=== PATIENT | female | born 1955 | race Caucasian/White ===

== ENCOUNTER 2019-05-27 13:48 | Inpatient (IN) ==
[2019-05-27] MEDS ORDERED: NITROGLYCERIN SL 0.4 MG/TAB TAB ONE (13:57)
[2019-05-27] MEDS ORDERED: ASPIRIN CHEW 324 MG ONE (13:57)
[2019-05-27] MEDS ORDERED: NITROGLYCERIN SL 0.4 MG/TAB TAB SL PRN (13:58)
[2019-05-27] MEDS ORDERED: MoRPHine SULFATE 4 MG/ML 1 ML CARP\\VIAL IV STA (13:58)
[2019-05-27] MEDS ORDERED: ASPIRIN CHEW 324 MG PO STA (13:58)
[2019-05-27] MEDS ORDERED: TICAGRELOR 90 MG TAB PO ONE ×2 (13:59→16:17)
[2019-05-27] MEDS ORDERED: MIDAZOLAM HCL 1 MG/ML 2ML VIAL ONE ×2 (13:59→15:14)
[2019-05-27] MEDS ORDERED: fentaNYL citrate 100 MCG/2 ML VIAL ONE (13:59)
[2019-05-27] MEDS ORDERED: HEPARIN (PORCINE) 1000 UNIT/ML 10 ML (CATH LAB USE ONLY) ONE ×2 (13:59→14:50)
[2019-05-27] MEDS ORDERED: NiCARDipine HCL INJ 2.5 MG/ML 10 ML AMP ONE (13:59)
[2019-05-27] MEDS ORDERED: NITROGLYCERIN/D5W 100MCG/ML 20ML SYR ONE (13:59)
--- NOTE | 2019-05-27 14:10 | XRay Report ---
XR chest 1V portable CLINICAL HISTORY: Chest pain dyspnea COMPARISON STUDY: 01/24/2018 FINDINGS: Central catheter in superior vena cava. Improving diffuse pulmonary nodularity. Interval development of subsegmental atelectasis versus infiltrate right base. Diaphragms are smooth. IMPRESSION: 1. Interval development of subsegmental atelectasis versus focal infiltrative change medial right bas e. 2. Improving pulmonary nodularity. The above report was generated using voice recognition software. It may contain grammatical, syntax or spelling errors. Electronically signed by: Juan Jose Ramirez M.D. 05/27/2019 2:09 PM
[2019-05-27 14:16] LABS: iSTAT Creatinine 1.6 mg/dl (0.6-1.3); iSTAT Hemoglobin 9.5 g/dl (12.0-16.0); iSTAT Ionized Calcium 1.12 mmol/l (1.12-1.32); iSTAT Potassium 3.3 mEq/L (3.3-5.0)
[2019-05-27 14:18] LABS: Basophils # (auto) 0.01 K/uL (0-0.2); Basophils % (auto) 0.2 %; Hematocrit (blood only) 28.5 % (37-47); Hemoglobin 9.5 g/dL (12.0-16.0); Immature Granulocytes # (auto) 0.04 K/uL (0.00-0.02); Immature Granulocytes % (auto) 0.8 %; Lymphocytes # (auto) 2.24 K/uL (1.2-3.4); Lymphocytes % (auto) 46.6 %; Mean Corpuscular Hemoglobin 29.9 pg (25-34); Mean Corpuscular Hgb Conc 33.3 g/dL (32-36); Mean Corpuscular Volume 89.6 fL (80-100); Mean Platelet Volume 8.6 fL (7.4-10.4); Monocytes # (auto) 0.65 K/uL (0.11-0.59); Monocytes % (auto) 13.5 %; Neutrophils # (auto) 1.87 K/uL (1.4-6.5); Neutrophils % (auto) 38.9 %; Platelet Count 336 K/uL (130-400); RDW Coefficient of Variation 16.5 % (11.5-14.5); RDW Standard Deviation 52.8 fL (36.4-46.3); Red Blood Count 3.18 M/uL (4.2-5.4); White Blood Count 4.81 K/uL (4.8-10.8)
[2019-05-27 14:31] LABS: Albumin Level 3.5 gm/dl (3.4-5.0); BUN Creatinine Ratio 7.2 (10-20); Calcium 9.4 mg/dl (8.5-10.1); Creatinine Clr Calc Pharmacy 32.9 ml/min; Est GFR (African American) 38.5; Est GFR (Non-African American) 33.2; Potassium 3.2 mmol/L (3.5-5.1)
[2019-05-27 14:38] LABS: Partial Thromboplastin Ratio 0.9; Partial Thromboplastin Time 24.5 Seconds (21.0-31.0); Prothrombin Time 10.6 Seconds (9.0-12.0)
[2019-05-27] MEDS ORDERED: AMIODARONE HCL INJ 50 MG/ML 3 ML VIAL (CATH LAB USE ONLY) ONE (14:38)
[2019-05-27] MEDS ORDERED: NOREPINEPHRINE BITARTRATE 1 MG/ML 4 ML VIAL (CATH LAB USE ONLY) ONE (14:39)
[2019-05-27] MEDS ORDERED: AMIODARONE 150MG / 100ML D5W (CATH LAB USE ONLY) ONE ×2 (14:40)
[2019-05-27 14:44] LABS: Albumin Globulin Ratio 0.9 (0.9-2); Bilirubin,Total 0.4 mg/dl (0.2-1); Creatine Kinase MB 2.1 ng/ml (0.5-3.6); Thyroid Stimulating Hormone 2.75 uIu/ml (0.300-4.500); Total Protein 7.5 gm/dl (6.4-8.2); Troponin I 0.369 ng/ml (0-0.045)
[2019-05-27] MEDS ORDERED: ONDANSETRON INJ 2 MG/ML 2 ML VIAL ONE (15:11)
[2019-05-27] MEDS ORDERED: ACETAMINOPHEN 325 MG TAB PO PRN (16:40)
[2019-05-27] MEDS ORDERED: ONDANSETRON INJ 2 MG/ML 2 ML VIAL IV PRN (16:40)
[2019-05-27] MEDS ORDERED: ICU PROTOCOL FOR HYPERGLYCEMIA PRN (16:44)
[2019-05-27] MEDS: SODIUM CHLORIDE 0.9% 1000ML 1,000 ML IV SCH ×2 (16:45→17:51)
[2019-05-27] MEDS ORDERED: EPTIFIBATIDE BOLUS/DRIP IV STA (16:52)
--- NOTE | 2019-05-27 16:57 | Pre Anesthesia Assessment ---
Date of Service May 27, 2019 Pre Sedation Assessment Vital Signs Temp Pulse Resp BP Pulse Ox 05/27/19 14:09 97.9 F 05/27/19 14:07 106 H 20 132/95 99 05/27/19 14:00 100 H 22 154/115 H 100 05/27/19 13:58 100 Cardiovascular RRR, no murmur, no edema Respiratory normal respiratory effort, lungs clear to auscultation Pre-Sedation Airway Assessment Smoking Status: Never smoker Hx Sleep Apnea: No Hx Difficult Intubation: No Short, Thick Neck: No Thyromental Distance: > or= 3.5 Finger Breadths Oral Cavity: + WNL Mallampati Class: III Procedure Planning Contraindications for Sedation: none Current Medications Reviewed: Yes Notes The planned sedation has been discussed with the patient. Informed Consent was obtained. I have identified the patient, determined the appropriateness of sedation and have assessed the patient immediately prior to the procedure. All medicine(s) and interventions are by my order.
--- NOTE | 2019-05-27 16:59 | Post Anesthesia Assessment ---
Date of Service May 27, 2019 Post Sedation Assessment Vital Signs Temp Pulse Resp BP Pulse Ox 05/27/19 14:09 97.9 F 05/27/19 14:07 106 H 20 132/95 99 05/27/19 14:00 100 H 22 154/115 H 100 05/27/19 13:58 100 Recovery Score Activity: Moves 4 extremities Respiration: Deep Breath/Cough Circulation: +/-20% PreAnes Value Consciousness: Fully Awake Discharge Sedation Level of Care: Fast Track Phase II Post Sedation Plan On clinical assessment, the patient appears to have tolerated the sedation without complications. Patient is recovering as anticipated. Patient will continue to be monitored by nursing and may be discharged when sedation discharge criteria are met per below protocol. Upon Completions of procedure and additional 15 minutes continue every 5 minute vital signs and the P.A.R. score; then discharge to a Phase I or Fast Track to Phase II per the following guidelines: * Discharge Patient to appropriate Phase II area if PAR is 8 or greater or return to pre- procedure baseline. The post - procedure orders will be as directed. * If PAR score is less than 8 or not return to pre-procedure baseline then patient will follow Phase I monitoring till PAR is reached for Phase II. The Phase I may be done in procedure room or may call to secure a Phase I area. * If naloxone or flumazenil are used for reversal, hold in Phase I for continued monitoring from when last reversal dose was given for a minimum of 60 minutes or longer pending the nurse and/or physician discretion of patient condition before discharge to Phase II. Please call the Sedation Physician to re-evaluate and complete post-note for discharge to Phase II area. Do NOT discharge from procedure sedation or Phase 1 until post- sedation evaluation note is complete by procedure /sedation MD Sedation Discharge Instructions to be given to the patient at discharge to home.
--- NOTE | 2019-05-27 17:06 | Cardiology Consultation ---
Date of Consultation May 27, 2019 Assessment & Plan (1) STEMI (ST elevation myocardial infarction): Presentation consistent with anterior STEMI and recommend proceeding with emergent cardiac catheterization and likely primary PCI. Discussed risks, benefits, alternatives of procedure with patient and they are willing to proceed. Further recommendations pending findings of coronary angiography. History of Present Illness Attending Physician: Soco Thakkar MD History of Present Illness 63-year-old woman with non-small cell lung cancer being treated with c hemotherapy here with acute chest pain and ECG concerning for acute [place]. Patient seen emergently in the ED after heart alert activated upon arrival. No prior cardiac history. Cardiac risk factors include dyslipidemia, hypertension. Other medical issues include asthma, GERD, renal insufficiency. Tissue diagnosis of NSCLC back in December 2018. Chest pain began approximately 2 hours prior to arrival while at rest. Describes substernal/left-sided pain with associated nausea, and left arm numbness. Denies similar symptoms in the past. Chest pain at its worst 9 out of 10, 3 out of 10 at time of interview after nitro. Hemodynamically stable. EKG showed anterior ST elevations. Allergies Allergy/AdvReac Type Severity Reaction Status Date / Time barley Allergy Intermediate INDIGESTION/GI Verified 12/28/18 11:43 SYMPTOMS chocolate flavor Allergy Intermediate HEADACHES Verified 12/28/18 11:43 WITH LARGE QUANTITIES horse dander Allergy Intermediate ITCHING Verified 12/28/18 11:43 mold Allergy Intermediate ITCHING/DIFFICULT Verified 12/28/18 11:43 BREATHING Penicillins Allergy Intermediate Hives Verified 12/28/18 11:43 cheese AdvReac Intermediate CONSTIPATION/GI Verified 12/28/18 11:43 SYMPTOMS Home Medications Home Medications Medication Instructions Recorded Confirmed Type Adults Multivitamin 1 tab PO WK 12/27/18 05/27/19 History Odorless Garlic 1,250 mg PO BID 12/27/18 05/27/19 History Zyrtec 10 mg PO QAM 12/27/18 05/27/19 History albuterol sulfate [ProAir HFA] 2 puff INHALATION Q6H PRN 12/27/18 05/27/19 History coQ10 (ubiquinol) 100 mg PO BID 12/27/18 05/27/19 History fluticasone propionate [Flonase 1 spray INTRANASAL DAILY 12/27/18 05/27/19 History Allergy Relief] mupirocin 1 unit TOPICAL BID PRN 12/27/18 05/27/19 History omega 1-yvw-npj-fish oil [Fish Oil] 1 cap PO WK 12/27/18 05/27/19 History ranitidine HCl 150 mg PO BID PRN 12/27/18 05/27/19 History acetaminophen [Tylenol] 325 mg PO QID PRN 12/28/18 05/27/19 History amlodipine 2.5 mg PO DAILY 05/27/19 05/27/19 History folic acid 1 mg PO DAILY 05/27/19 05/27/19 History ondansetron HCl 8 mg PO Q8H PRN 05/27/19 05/27/19 History Patient History Medical History Allergic rhinitis Asthma HAS NOT USED INHALER SINCE PRESCRIBED Chronic cough Dyslipidemia, goal LDL below 130 GERD (gastroesophageal reflux disease) Herpes simplex viral infection Mediastinal adenopathy Migraine HX OF 2010 Pulmonary nodules Right lower lobe lung mass TMJ (temporomandibular joint disorder) Surgical History History of 1973 History of tooth extraction Family History Mother Family history of diabetes mellitus Social History Preferred Language: Pry[place] Communication Ability: Effective Pipe Organ Mechanic Required: No Beliefs That Will Affect Care: None Current Living Situation: Spouse Feels Safe at Home: Yes Smoking Status: Never smoker Second Hand Exposure: No ; Hx Alcohol Use: Yes Alcohol type: hard liquor Hx Substance Use: No Review of Systems Review of Systems: Other (Not obtained in the setting of emergent situation) Physical Exam Physical Exam: General: Uncomfortable, tearful, chronically ill-appearing HEENT: Sclerae anicteric, mucous membranes moist Lungs: Clear to auscultation with decreased breath sounds at bases Cardiac: Tachycardic, regular Abdomen: Soft, nontender, nondistended, positive bowel sounds. Extremities: Warm, well perfused, no edema. 2+ radial pulses Skin: No rashes or lesions. Neuro: Nonfocal Psych: Alert orient x3, normal affect and mood Results & Data Vital Signs (Past 12 Hours) Vital Signs Temp Pulse Resp BP Pulse Ox 05/27/19 14:09 97.9 F 05/27/19 14:07 106 H 20 132/95 99 05/27/19 14:00 100 H 22 154/115 H 100 05/27/19 13:58 100 PG Care Time/CCT Total # of Minutes Spent Total Time Spent with Patient: Total time spent is greater than 50% in coordination of care (as documented) at patient's floor/unit and/or counseling patient:
[2019-05-27] MEDS ORDERED: EPTIFIBATIDE IV ONE (17:15)
--- NOTE | 2019-05-27 17:23 | Critical Care Consultation ---
Date of Consultation May 27, 2019 Assessment & Plan (1) Non-small cell cancer of right lung: (2) STEMI (ST elevation myocardial infarction): Reason Critically Ill: 63-year-old female with history non-small cell carcinoma, presented with STEMI requiring PCI x3 to the [facility] - [facility] ICU: Negative Cardiac - STEMIpresentation presented with chest pain and found to have ST elevation in anterior leads -Initial troponin elevated 0.39, will follow for downtrend -Taken to [facility] found to have 100% occlusion of the LAD, received PCI x3 -Also had multivessel disease with PDA, RCA, circumflex; see cardiac catheterization note -Had prolonged balloon angioplasty of latemid downstream LAD dissection, will continue Brilinta for 18 hours per cardiology -Continuous monitoring on telemetry -Follow-up echo -Monitor EKGs -Lipitor, Brilinta, ASA Respiratory - Non-small cell carcinomareceives chemo every other Thursday, last infusion 05/20 -CBC within normal limits GI - PPI Heart healthy diet RENAL/LYTES - CKD stage IIIno known baseline creatinine, presented elevated at 1.6, JESSICA possibility -We will continue to monitor with routine BMPs, trend -Continue IV fluids -Avoid nephrotoxins - Strict I's and O's ENDO - No history diabetes or thyroid disease ICU hyperglycemic protocol HEME - Anemianormocytic, normochromic; likely related to cancer/chemo -H&H within acceptable range, will continue to trend and transfuse if necessary Neutrophil count within normal limits ID - No indication for infectious process at this time LINES/IV ACCESS - Peripheral IVs DVT PROPHYLAXIS - SCDs, holding anticoagulation as patient is on Integralin infusion Thank you for allowing us to participate in the care of this patient. Please refer to my attending physician's documentation for any further recommendations. (3) GERD (gastroesophageal reflux disease): (4) Admitted to intensive care unit: Supervising Physician Co-Signing Physician Notes I have personally evaluated and examined this patient. I agree with assessment and plan of Joanie RAMSEY. Discussed the patient with Dr. Malin of cardiology, there is a known distal dissection. He also had a dissection proximal which required stenting, he was unable to place a stent into the distal dissection at this time we are continuing Integrilin, if she were to have a complication of continued or extended myocardial ischemia a repeat catheterization would strongly be considered. Initially in the ICU she was rather tachycardic and hypertensive to decrease her myocardial oxygen consumption we cautiously gave her intravenous beta-blockers. I recognize the risk of if there is extended cardiac ischemia this could place the patient at increased risk of complications however I feel we need to better control her hemodynamics at this time Patient is extremely anxious and has been improved with Ativan. I have personally spent 35 minutes of critical care time in the direct management of this patient. This is a life/limb threatening event. This includes time spent evaluating patient, direct bedside care, chart review, placing orders, interpretation of diagnostic studies, discussion with consultants, patient, and/or family members regarding treatment decisions, as well as other required patient management activities. This time is exclusive of all separately billable procedures, and teaching time and separate from and in addition to any other critical care service time. History of Present Illness Attending Physician: Soco Thakkar MD History of Present Illness Patient 63-year-old female with recent diagnosis of non-small cell carcinoma in December 2018, currently being treated with chemo biweekly with last transfusion on 05/20. She presented to the emergency department with complaints of chest pain with radiation to the left arm that is been ongoing since noon. She also has associated nausea and vomiting state at home. She was given nitro in the ED with some relief. Troponin was elevated and EKG showed ST elevation in the anterior leads. Heart code was initiated and patient was taken to [facility] and received PCI x3 to the LAD. She was also found to have multivessel disease. Was transferred to ICU post catheterization. Remains on Integrilin drip at this time. Currently patient denies chest pain, headache or syncope, shortness of breath, palpitations, nausea or vomiting, abdominal pain. Allergies Allergy/AdvReac Type Severity Reaction Status Date / Time barley Allergy Intermediate INDIGESTION/GI Verified 12/28/18 11:43 SYMPTOMS chocolate flavor Allergy Intermediate HEADACHES Verified 12/28/18 11:43 WITH LARGE QUANTITIES horse dander Allergy Intermediate ITCHING Verified 12/28/18 11:43 mold Allergy Intermediate ITCHING/DIFFICULT Verified 12/28/18 11:43 BREATHING Penicillins Allergy Intermediate Hives Verified 12/28/18 11:43 cheese AdvReac Intermediate CONSTIPATION/GI Verified 12/28/18 11:43 SYMPTOMS Home Medications Home Medications Medication Instructions Recorded Confirmed Type albuterol sulfate [ProAir HFA] 2 puff INHALATION Q6H PRN 12/27/18 05/27/19 History amlodipine 2.5 mg PO DAILY 05/27/19 05/27/19 History ondansetron HCl 8 mg PO Q8H PRN 05/27/19 05/27/19 History prochlorperazine maleate 5 mg PO Q6H PRN 05/27/19 05/27/19 History Patient History Medical History Non-small cell cancer of right lung (Chronic) Dyslipidemia, goal LDL below 130 (Chronic) Chronic cough (Chronic) Mediastinal adenopathy (Chronic) Asthma (Chronic) HAS NOT USED INHALER SINCE PRESCRIBED GERD (gastroesophageal reflux disease) (Chronic) Migraine (Chronic) HX OF 2009 Allergic rhinitis (Resolved) Herpes simplex viral infection (Resolved) Pulmonary nodules (Resolved) TMJ (temporomandibular joint disorder) (Resolved) Surgical History History of tooth extraction (Chronic) History of (Chronic) 1973 Family History Mother Family history of diabetes mellitus Heart disease Father Coronary heart disease Social History Preferred Language: Lithuanian Communication Ability: Effective Signals Intelligence Analyst Required: No Beliefs That Will Affect Care: None marital status: Current Living Situation: Spouse Feels Safe at Home: Yes Safety Concerns: Feels Safe At This Time Smoking Status: Never smoker Do You Dip or Chew Tobacco: No ; Second Hand Exposure: No ; Tobacco Cessation Education Requested by Patient: No Hx Alcohol Use: No Hx Substance Use: No Review of Systems Review of Systems: All systems reviewed & are unremarkable except as noted in HPI & below Physical Exam Constitutional: cooperative and comfortable Eyes: PERRL, conjunctivae normal, anicteric sclerae ENMT: external ear and nose normal, oropharynx normal Neck: trachea midline, no thyromegaly Respiratory: normal respiratory effort, lungs clear to auscultation Cardiovascular: RRR, no murmur, no edema Heart Sounds: normal S1 and normal S2 Vessels: no JVD Extremities: normal capillary refill; no edema Gastrointestinal (Abdomen): normal bowel sounds, soft, nontender, no hepatosplenomegaly Musculoskeletal: no cyanosis or clubbing, extremities motor strength 5/5 Skin: no rashes, warm and dry Neurologic: PERRL, EOMI, accommodation nl, no face palsy, no dysarthria Psychiatric: A+Ox3, euthymic affect Results & Data Vital Signs (Past 12 Hours) Vital Signs Temp Pulse Resp BP Pulse Ox 05/27/19 14:09 36.6 C 05/27/19 14:07 106 H 20 132/95 99 05/27/19 14:00 100 H 22 154/115 H 100 05/27/19 13:58 100 Laboratory Results Laboratory Results - last 24 hr 05/27/19 05/27/19 05/27/19 14:01 14:01 14:01 WBC 4.81 RBC 3.18 L Hgb 9.5 L POC Hgb Hct 28.5 L POC Hct MCV 89.6 MCH 29.9 MCHC 33.3 RDW Std Deviation 52.8 H RDW Coeff of Azael 16.5 H Plt Count 336 MPV 8.6 Immature Gran % (Auto) 0.8 Neut % (Auto) 38.9 Lymph % (Auto) 46.6 [place] % (Auto) 13.5 Eos % (Auto) 0.0 Baso % (Auto) 0.2 Immature Gran # (Auto) 0.04 H Neut # (Auto) 1.87 Lymph # (Auto) 2.24 [place] # (Auto) 0.65 H Eos # (Auto) 0.00 Baso # (Auto) 0.01 PT 10.6 INR 1.0 APTT 24.5 PTT Ratio 0.9 POC Sodium Sodium 135 L POC Potassium Potassium 3.2 L POC Chloride Chloride 100 Carbon Dioxide 26 POC Total CO2 Anion Gap 10.0 POC Anion Gap POC BUN BUN 12 Creatinine 1.63 H POC Creatinine Est Cr Clr Drug Dosing 32.9 Est GFR ( Amer) 38.5 Est GFR (Non-Af Amer) 33.2 BUN/Creatinine Ratio 7.2 L Glucose 148 H POC Glucose (other) Calcium 9.4 POC Ioniz Calcium Mo Magnesium 2.0 Total Bilirubin 0.4 AST 20 ALT 19 Alkaline Phosphatase 100 Total Creatine Kinase 56 CK-MB (CK-2) 2.1 CK/CKMB % Calc 3.8 H POC Troponin I Troponin I 0.369 H* Total Protein 7.5 Albumin 3.5 Globulin 4.0 Albumin/Globulin Ratio 0.9 Lipase 171 TSH 2.750 05/27/19 05/27/19 14:01 14:01 WBC RBC Hgb POC Hgb 9.5 L Hct POC Hct 28 L MCV MCH MCHC RDW Std Deviation RDW Coeff of Azael Plt Count MPV Immature Gran % (Auto) Neut % (Auto) Lymph % (Auto) [place] % (Auto) Eos % (Auto) Baso % (Auto) Immature Gran # (Auto) Neut # (Auto) Lymph # (Auto) [place] # (Auto) Eos # (Auto) Baso # (Auto) PT INR APTT PTT Ratio POC Sodium 133 L Sodium POC Potassium 3.3 Potassium POC Chloride 98 L Chloride Carbon Dioxide POC Total CO2 25 Anion Gap POC Anion Gap 15.0 L POC BUN 10 BUN Creatinine POC Creatinine 1.6 H Est Cr Clr Drug Dosing Est GFR ( Amer) Est GFR (Non-Af Amer) BUN/Creatinine Ratio Glucose POC Glucose (other) 149 H Calcium POC Ioniz Calcium Mo 1.12 Magnesium Total Bilirubin AST ALT Alkaline Phosphatase Total Creatine Kinase CK-MB (CK-2) CK/CKMB % Calc POC Troponin I 0.27 H Troponin I Total Protein Albumin Globulin Albumin/Globulin Ratio Lipase TSH Medications Administered Home Medications albuterol sulfate [ProAir HFA] 2 puff INHALATION Q6H PRN 12/27/18 [History Confirmed 05/27/19] amlodipine 2.5 mg PO DAILY 05/27/19 [History Confirmed 05/27/19] ondansetron HCl 8 mg PO Q8H PRN 05/27/19 [History Confirmed 05/27/19] prochlorperazine maleate 5 mg PO Q6H PRN 05/27/19 [History Confirmed 05/27/19] Active Medications Acetaminophen (Tylenol) 650 mg PO Q4H PRN PRN Reason: Mild Pain (scale 1-3) Stop: 06/26/19 16:39 Aspirin (Ecotrin Ectab) 81 mg PO QAM COLLEEN Stop: 06/27/19 08:59 Atorvastatin Calcium (Lipitor) 40 mg PO QAM COLLEEN Stop: 06/27/19 08:59 Eptifibatide (Integrilin Bolus/Drip) 1 ea IV NOW STA Stop: 05/27/19 16:53 Sodium Chloride (Nss 1000ml) 1,000 mls @ 100 mls/hr IV .Q10H COLLEEN Stop: 05/27/19 21:44 Eptifibatide (Integrilin) 75 mg in 100 mls @ 5.512 mls/hr IV .Q18H9M COLLEEN; Protocol Stop: 06/26/19 17:14 Potassium Chloride (K Rohit / Wtr) 20 meq in 100 mls @ 50 mls/hr IV Q2H [facility] Stop: 05/27/19 21:29 Miscellaneous (Icu Protocol For Hyperglycemia) 1 ea N/A PRN PRN; Protocol PRN Reason: Hyperglycemia Protocol Stop: 05/29/19 16:43 Nitroglycerin (Nitrostat) 0.4 mg SL Q5M PRN PRN Reason: Chest Pain Ondansetron HCl (Zofran) 4 mg IV Q6H PRN PRN Reason: Nausea And Vomiting Stop: 06/26/19 16:39 Pantoprazole Sodium (Protonix) 40 mg PO QAM [facility] Stop: 06/27/19 08:59 Ticagrelor (Brilinta) 90 mg PO BID [facility] Stop: 06/27/19 01:59 PG Care Time/CCT Total # of Minutes Spent Total Time Spent with Patient: Total time spent is greater than 50% in coordination of care (as documented) at patient's floor/unit and/or counseling patient:
--- NOTE | 2019-05-27 17:23 | History & Physical Report ---
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 Pt found to have anterior STEMI, troponin elevated 0.319 Proceeded to cardiac cardiac cath lab technologist: Found to have 100% mid LAD occlusion Severe multi vessel non culprit coronary artery disease Heavily calcified RCA with 90% early-mid stenosis and distal 90% stenosis; 90% ostial OM2 PCI Successful: Ostial to mid LAD with 3 overlapping drug-eluting stent. Further had prolonged balloon angioplasty of latemid downstream LAD dissection with minimal residual stenosis" Per Dr. Malin cath report Admit to ICU for close cardiac monitoring Continue Integrilin for 18hrs Loaded with brilinta Continue dual antiplatelet therapy x 1 year Cycle cardiac enzymes until peak Echocardiogram ordered High intensity statin, BB and RAMANA as BP allows Daily labs IVF per radiology services manager please refer to radiology services manager consultation for further assessment and plan (3) Non-small cell cancer of right lung: Currently receiving chemotherapy; last cycle was 1 week ago (4) HTN (hypertension): On amlodipine as outpt Titrate BB and RAMANA as BP allows Per pt she has been having significantly elevated BP for the past week (5) Dyslipidemia, goal LDL below 130: High intensity statin (6) Anemia: H/H 9.2/27.6 as outpt Normocytic, normochromic - likely in setting of chemo/ca Trend H/H (7) CKD (chronic kidney disease), stage III: Baseline cr 1.5 bun/cr 12 and 1.6 today monitor (8) DVT prophylaxis: SCD/TEDS, on Integrilin Disposition: to be determined Follow up: PCP Dr. Alba upon discharge along with appropriate cardiology follow up Patient was seen and examined in collaboration with Dr. Thakkar, please see addendum History of Present Illness Chief Complaint: Chest pain 2 hours prior to presentation. Primary Care Provider: Kae Alba MD This is a 63-year-old female who has significant past medical history of non- small cell CA of right lung, HTN, HLD, CKD-3, GERD, asthma who presents to [facility] ED as heart alert. Of significance patient has recent diagnosis of non-small cell CA of right lung, biopsy 12/2018. Currently receiving chemotherapy, last treatment 1 week ago. 2 hours prior to arrival patient was sitting down eating when she developed severe substernal chest pain radiated to bilateral arms, associated diaphoresis, palpitations, nausea. "I understand CPR, but I couldn't understand what was going on because it was going to both arms." Heart alert was called and patient was found to have acute anterior STEMI in ED. Pt was evaluated by Dr. Malin and taken to cardiac cath lab technologist. Patient was found to have moderate LAD occlusion with calcification which required patient to have 3 total stents placed in LAD. Also noted was a [id number] dissection that was not amenable to PCI. Patient was chest pain-free postprocedure and loaded with Brilinta. She was transferred to ICU and we have been consulted for medical management. Currently she denies any chest pain, lightheadedness, dizziness, fever, chills, sweats, shortness of breath, nausea, vomiting, abdominal pain. She overall feels very anxious about entire event and becomes very tearful when talking about it. Prior to arrival today she has been having a good appetite, trying to maintain 2000cal/day diet along with maintaining good hydration. States that for the past week she has been having significantly elevated blood pressure during chemo and for the past week. Has almost been forgetting to take her amlodipine. Allergies Allergy/AdvReac Type Severity Reaction Status Date / Time barley Allergy Intermediate INDIGESTION/GI Verified 12/28/18 11:43 SYMPTOMS chocolate flavor Allergy Intermediate HEADACHES Verified 12/28/18 11:43 WITH LARGE QUANTITIES horse dander Allergy Intermediate ITCHING Verified 12/28/18 11:43 mold Allergy Intermediate ITCHING/DIFFICULT Verified 12/28/18 11:43 BREATHING Penicillins Allergy Intermediate Hives Verified 12/28/18 11:43 cheese AdvReac Intermediate CONSTIPATION/GI Verified 12/28/18 11:43 SYMPTOMS Home Medications Home Medications Medication Instructions Recorded Confirmed Type albuterol sulfate [ProAir HFA] 2 puff INHALATION Q6H PRN 12/27/18 05/27/19 History amlodipine 2.5 mg PO DAILY 05/27/19 05/27/19 History ondansetron HCl 8 mg PO Q8H PRN 05/27/19 05/27/19 History prochlorperazine maleate 5 mg PO Q6H PRN 05/27/19 05/27/19 History Past Med/Surg History Medical History Non-small cell cancer of right lung (Chronic) Dyslipidemia, goal LDL below 130 (Chronic) Chronic cough (Chronic) Mediastinal adenopathy (Chronic) Asthma (Chronic) HAS NOT USED INHALER SINCE PRESCRIBED GERD (gastroesophageal reflux disease) (Chronic) Migraine (Chronic) HX OF 2009 Allergic rhinitis (Resolved) Herpes simplex viral infection (Resolved) Pulmonary nodules (Resolved) TMJ (temporomandibular joint disorder) (Resolved) Surgical History History of tooth extraction (Chronic) History of (Chronic) 1972 Family History Mother Family history of diabetes mellitus Heart disease Father Coronary heart disease Social History Preferred Language: Kiswahili Communication Ability: Effective Billing Control Clerk Required: No Beliefs That Will Affect Care: None marital status: Current Living Situation: Spouse Feels Safe at Home: Yes Safety Concerns: Feels Safe At This Time Smoking Status: Never smoker Do You Dip or Chew Tobacco: No ; Second Hand Exposure: No ; Tobacco Cessation Education Requested by Patient: No Hx Alcohol Use: No Hx Substance Use: No Review of Systems Review of Systems: All systems reviewed & are unremarkable except as noted in HPI & below Physical Exam Physical Exam: Constitutional: WD/WN, vitals as above, NAD, sitting up in bed, pleasant, conversing easily Head: Normocephalic, Atraumatic Eyes: PERRL, conjunctivae normal, anicteric sclerae ENMT: external ear and nose normal, oropharynx normal Neck: trachea midline, no thyromegaly normal visual inspection Respiratory: normal respiratory effort, lungs clear to auscultation, no wheeze, rales, rhonchi. Normal insp/exp effort, no accessory muscle use Cardiovascular: tachycardic rate, regular rhythm, no murmur, no edema Vessels: pulsating JVD or carotid bruit Chest: normal inspection of chest Abdomen: normal bowel sounds, soft, nontender, no hepatosplenomegaly Musculoskeletal: no cyanosis or clubbing, extremities motor strength 5/5 Skin: no rashes, warm and dry normal turgor Neurologic: PERRL, EOMI, accommodation nl, no face palsy, no dysarthria CN's II-XI intact bilaterally and moves all extremities Psychiatric: A+Ox3, very anxious, affect : deferred Results & Data Vital Signs (Past 12 Hours) Vital Signs Temp Pulse Resp BP Pulse Ox 05/27/19 14:09 36.6 C 05/27/19 14:07 106 H 20 132/95 99 05/27/19 14:00 100 H 22 154/115 H 100 05/27/19 13:58 100 Laboratory Results Short CBC 05/27/19 Range/Units 14:01 WBC 4.81 (4.8-10.8) K/uL Hgb 9.5 L (12.0-16.0) g/dL Hct 28.5 L (37-47) % Plt Count 336 (130-400) K/uL BMP 05/27/19 14:01 Sodium 135 L Potassium 3.2 L Chloride 100 Carbon Dioxide 26 BUN 12 Creatinine 1.63 H Glucose 148 H Calcium 9.4 Cardiac Enzymes 05/27/19 Range/Units 14:01 Total Creatine Kinase 56 (26-192) U/L CK-MB (CK-2) 2.1 (0.5-3.6) ng/ml Troponin I 0.369 H* (0-0.045) ng/ml Liver Function 05/27/19 Range/Units 14:01 Total Bilirubin 0.4 (0.2-1) mg/dl AST 20 (15-37) U/L ALT 19 (12-78) U/L Alkaline Phosphatase 100 (45-117) U/L Albumin 3.5 (3.4-5.0) gm/dl Diagnostic Findings CXR: IMPRESSION: 1. Interval development of subsegmental atelectasis versus focal infiltrative change medial right base. 2. Improving pulmonary nodularity. Medications Administered Discontinued Medications Amiodarone HCl/Dextrose (Nexterone / D5w (Refinery Operator [employer] Use Only)) Confirm Administered Dose 150 mg .ROUTE .STK-MED ONE Stop: 05/27/19 14:41 Last Admin: 05/27/19 16:19 Dose: Not Given Documented by: [id number] Amiodarone HCl/Dextrose (Nexterone / D5w ([employer] Use Only)) Confirm Administered Dose 150 mg .ROUTE .STK-MED ONE Stop: 05/27/19 14:41 Last Admin: 05/27/19 16:19 Dose: Not Given Documented by: [id number] Amiodarone HCl (Cordarone ([employer]inery Operator [employer] Use Only)) Confirm Administered Dose 150 mg .ROUTE .STK-MED ONE Stop: 05/27/19 14:39 Last Admin: 05/27/19 16:18 Dose: 150 mg Documented by: [id number] Aspirin (Aspirin) Confirm Administered Dose 324 mg .ROUTE .STK-MED ONE Stop: 05/27/19 13:58 Last Admin: 05/27/19 13:59 Dose: 324 mg Documented by: [id number] Aspirin (Aspirin) 324 mg PO NOW STA Stop: 05/27/19 13:59 Last Admin: 05/27/19 14:07 Dose: Not Given Documented by: [id number] Fentanyl Citrate (Fentanyl Citrate) Confirm Administered Dose 100 mcg .ROUTE .STK-MED ONE Stop: 05/27/19 14:00 Last Increment: 05/27/19 16:18 Dose: 75 mcg Documented by: [id number] Heparin Sodium (Porcine) (Heparin Iv Bolus ([employer]inery [employer] Use Only)) Confirm A dministered Dose 10,000 units .ROUTE .STK-MED ONE Stop: 05/27/19 14:00 Last Admin: 05/27/19 16:18 Dose: 10,000 units Documented by: [id number] Heparin Sodium (Porcine) (Heparin Iv Bolus ([employer]inery Operator [employer]ds Recovery Use Only)) Confirm Administered Dose 20,000 units .ROUTE .STK-MED ONE Stop: 05/27/19 14:51 Last Admin: 05/27/19 16:19 Dose: 1,000 units Documented by: [id number] Heparin Sodium/Sodium Chloride (Heparin/Nss 1000 Unit/500ml Flush Bag) Confirm Administered Dose 3,000 units IV .STK-MED ONE Stop: 05/27/19 14:00 Last Admin: 05/27/19 16:18 Dose: 3,000 units Documented by: [id number] Midazolam HCl (Versed) Confirm Administered Dose 2 mg .ROUTE .STK-MED ONE Stop: 05/27/19 14:00 Last Admin: 05/27/19 16:18 Dose: 2 mg Documented by: [id number] Midazolam HCl (Versed) Confirm Administered Dose 2 mg .ROUTE .STK-MED ONE Stop: 05/27/19 15:15 Last Increment: 05/27/19 16:20 Dose: 1 mg Documented by: [id number] Morphine Sulfate (Morphine Sulfate) 4 mg IV NOW STA Stop: 05/27/19 13:59 Last Admin: 05/27/19 17:04 Dose: Not Given Documented by: [id number] Nicardipine HCl (Cardene) Confirm Administered Dose 25 mg .ROUTE .STK-MED ONE Stop: 05/27/19 14:00 Last Admin: 05/27/19 16:17 Dose: 25 mg Documented by: [id number] Nitroglycerin (Nitrostat) Confirm Administered Dose 0.4 mg .ROUTE .STK-MED ONE Stop: 05/27/19 13:58 Last Admin: 05/27/19 13:59 Dose: 0.4 mg Documented by: [id number] Nitroglycerin/Dextrose (Nitroglycerin/D5w 100 Mcg/Ml 20ml Syringe) Confirm Administered Dose 2,000 mcg .ROUTE .STK-MED ONE Stop: 05/27/19 14:00 Last Admin: 05/27/19 16:18 Dose: 2,000 mcg Documented by: [id number] Norepinephrine Bitartrate (Levophed (Refinery Operator [employer] Use Only)) Confirm Administered Dose 8 mg .ROUTE .STK-MED ONE Stop: 05/27/19 14:40 Last Admin: 05/27/19 16:19 Dose: Not Given Documented by: [id number] Ondansetron HCl (Zofran) Confirm Administered Dose 4 mg .ROUTE .STK-MED ONE Stop: 05/27/19 15:12 Last Admin: 05/27/19 16:20 Dose: 4 mg Documented by: [id number] Ticagrelor (Brilinta) 180 mg PO ONE ONE Stop: 05/27/19 14:00 Last Admin: 05/27/19 16:17 Dose: 180 mg Documented by: [id number] Ticagrelor (Brilinta) Confirm Administered Dose 180 mg PO .STK-MED ONE Stop: 05/27/19 16:18 Last Admin: 05/27/19 17:04 Dose: Not Given Documented by: [id number] ECG Rate (beats per minute): 94 Rhythm: normal sinus Findings: + acute ischemic change (anterior STEMI) Code Status & VTE Plan Code Status Full Code VTE Prophylaxis Plan VTE Prophylaxis will be ordered: Yes Supervising Physician Co-Signing Physician Notes Attending Addendum: The patient was seen and examined in ER He is S/P STEMI and S/P PCI as mentioned in Cardiac cath Generally weak and anxious Denies any CP/Palpitation/SOB On Examination No apparent distress at rest Chest-Clear Heart-Regular,no murmur Jovufbh-vhvmnl-ey edema TUBER HELPER-AAOX3 Labs and imaging studies reviewed, STEMI,S/P PIC as mentioned in cardiology noteFound to have 100% mid LAD occ lusion Severe multi vessel non culprit coronary artery disease Heavily calcified RCA with 90% early-mid stenosis and distal 90% stenosis; 90% ostial OM2 PCI Successful: Ostial to mid LAD with 3 overlapping drug-eluting stent. Further had prolonged balloon angioplasty of latemid downstream LAD dissection with minimal residual stenosis" Per Dr. Malin cath report Agree with the assessment and plan as outlined above by Ria Duval PA-C, Dr.
--- NOTE | 2019-05-27 17:26 | Cardiac Catheterization ---
[facility] Data: Stockroom Attendant Cardiac Status Clinical evaluation leading to the procedure CAD Presenation: STEMI Anginal Classification: CCS IV Heart Failure: No Cardiogenic Shock within 24 Hours: No Cardiac Arrest within 24 Hours: No Imaging Studies Past 6 Months: No Stress Studies Past 6 Months: No Diagnostic Physicians Name: Jostin Malin MD Status: Emergency Closure Device Percutaneous Entry Location: Radial Closure Device: Radial Band Recommendations: PCI without planned CABG PCI Indication: Immediate PCI for STEMI First Noted: First EKG Lesion Segment Name: mid LAD Culprit Artery: Yes Stenosis Prior to Rx (%): 100 Chronic Total Occlusion: No IVUS: No FFR: No Pre-Procedure PRIMO Flow: 0 Previously Treated Lesion: No Lesion Complexity: High/C Lesion Length (mm): 40 Thrombus Present: Yes Bifurcation Lesion: Yes Guidewire Across Lesion: Stenosis Post-Procedure (%): 0 Post-Procedure PRIMO Flow: 3 Devices(s) Deployed: Yes Yes Intraprocedure Events Significant Disection: No Perforation: No Cardiac Cath Procedure Full Procedure Date May 27, 2019 Pre-Procedure Diagnosis Pre-Procedure Diagnosis: STEMI AUC Score AUC Score: 9 Post-Procedure Diagnosis Post-Procedure Diagnosis: Severe CAD Procedure(s) Performed Procedure(s) Performed: Coronary Angiography, Left Heart Cath and Drug Eluting Stent Electromatic Typist Jostin Malin MD Production Sorter(s) Larry Estimated Blood Loss Estimated Blood Loss: 25 Medication(s) Medication(s): Fentanyl, Heparin, Integrilin, Lidocaine 1%, Nicardipine, Nitroglycerin and Versed Medication(s): ticagrelor Summary of Findings Indication: STEMI/Heart Alert Access: 6 Fr right radial artery Difficulty navigating catheter to ascending aorta due to significant subclavian tortuosity and proximal stenosis. Catheters: EBU 3.5 guide, diagnostic Gordon, JR4, AR-1, 3 DRC and successful RCA cannulation with AL1 Findings: LM -luminal irregularities LAD -caliber vessel, heavily calcified with earlymid 100% acute occlusion just after takeoff of small first septal, first diagonal. Circumflex -moderate caliber vessel, tortuous, gives off 3 OM's. Moderate caliber OM 2 with 90% ostial stenosis RCA -large caliber vessel, dominant, heavily calcified, anterior takeoff diffuse mild to moderate proximal disease, 80 to 90% mid segment stenosis followed by ectatic area, diffuse 50% mid to distal disease, focal 90% distal stenosis. Ectatic after stenosis at bifurcation with PDA. Right PDA with 70% ostial stenosis. Large right PLB with luminal irregularities. LVEDP -21 -- PCI -- Antithrombotic therapy: Heparin, Integrilin, ticagrelor Procedure: Left main cannulated with EBU 3.5 guide Aeronautical Engineering Teacher 50 wire wire passed across lesion into distal vessel Mid LAD lesion predilated with 2.5 compliant balloon Post angioplasty noted to have severe diffuse heavily calcified disease along with severe ectatic ostial disease involving moderate caliber second diagonal. Dilated lesion stented with 2 overlapping drug-eluting stents (2.75 x 22, 2.5 x 26 Cristopher). Since delivered with the aid of a guide liner Stents postdilated with 2.75 NC balloon Developed worsening chest pain and flow compromise due to proximal LAD dissection. Initial question of some extension into circumflex and wired with whisper wire. Started on Integrilin due to possible thrombus in circumflex. Proximal LAD dilated with 2.5 balloon and stented with 2.75 x 15 Xience Rossi drug-eluting stent overlapping with proximal aspect of second JOANNA IC vasodilators administered for spasm Noted to have haziness in late-mid LAD suggestive of dissection. Dissection treated with prolonged 2.0 balloon inflation Post balloon dilation PRIMO-3 flow with some residual radiographic evidence of dissection Due to concerns for ability to deliver another stent through previously placed stents and issues already with more proximal dissection, decision made to forego further attempts at stenting latemid LAD. Post procedure PRIMO 3 flow, stents well expanded. Arterial Closure: TR band Summary: 1. Anterior STEMI/100% mid LAD occlusion 2. Severe multi--vessel non-culprit coronary artery disease -Heavily calcified, ectatic RCA with 90% earlymid stenosis and 90% distal stenosis. 90% ostial OM 2 3. Elevated intracardiac filling pressure 4. Successful PCI of ostial to mid LAD with 3 overlapping drug-eluting stents (2.75 x 15 Xience Rossi, 2.75 x 22, 2.5 x 26 Cristopher). 5. Prolonged balloon angioplasty of latemid downstream LAD dissection with minimal residual stenosis and post procedure PRIMO-3 flow Recommendations: Admit to ICU for continued monitoring Continue Integrilin for 18hrs Loaded with ticagrelor 180 mg in supervisor cytogenetic laboratory. Continue dual-antiplatelet therapy for at least 1 year. Likely transition ticagrelor to clopidogrel prior to discharge Trend troponins until peak, Check Echo Uptitrate beta-shar/RAMANA as BP allows High-dose statin Consult cardiac Rehab Hemodynamics Rest Ao:: 118/80/98 Final Ao: 118/80/98 LV: 135/21 Recommendations Recommendations: PCI without planned CABG Specimens Specimens: None Radiation Exposure (mGy) 4392 Contrast (mls) 210 Fluids (cc crystalloids) Fluids (cc crystalloids): 460 Drains Drains: none Anesthesia moderate Procedural Complication(s) None Disposition ICU
[2019-05-27] MEDS: EPTIFIBATIDE 75 MG/100 ML VIAL IV SCH (17:44)
[2019-05-27] MEDS: POTASSIUM CHLORIDE / WTR 20 MEQ/100 ML PLCT IV SCH ×2 (18:03→20:07)
[2019-05-27 18:25] LABS: Appearance Urine Clear (Clear); Bacteria Urine Automated Negative (Negative); Bilirubin Urine Negative (Negative); Blood Urine 1+ (Negative); Color Urine Yellow; Glucose Urine UA Negative (Negative); Ketones Urine Negative (Negative); Leukocyte Esterase Urine Trace (Negative); Nitrite Urine Negative (Negative); Protein Urine Negative (Negative); RBC Urine Automated 0-4 /hpf (0-4); Specific Gravity Urine 1.021 (1.000-1.030); Urobilinogen Urine Negative (Negative); pH Urine 7.5 (4.5-7.5)
[2019-05-27] MEDS ORDERED: METOPROLOL TARTRATE 1 MG/ML VIAL IV STA (18:43)
[2019-05-27] MEDS ORDERED: METOPROLOL TARTRATE 1 MG/ML VIAL IV ONE (18:44)
[2019-05-27] MEDS ORDERED: METOPROLOL TARTRATE 1 MG/ML VIAL IV PRN (18:56)
[2019-05-27] MEDS ORDERED: LORazepam 1 MG/2 ML VIAL IV ONE (18:56)
[2019-05-27] MEDS ORDERED: LORazepam 1 MG/2 ML VIAL IV PRN (18:57)
--- NOTE | 2019-05-27 19:57 | Emergency Department Note ---
Entered by Samra Clemens acting as a scribe for History of Present Illness General Chief complaint: Chest Pain Stated complaint: CANCER PATIENT ,PAIN Time Seen by Provider: 05/27/19 13:58 Source: patient History of Present Illness Provider complaint: Chest Pain Onset (ago): hour(s) 2 Location: chest Pain Consistency: + constant Maximum Pain Intensity: 8 Quality: + other (Pressure) Associated symptoms: + other (Stomach Pain) The patient is a 63 year old white female w/ PMHx of lung cancer who presents to the ED w/ CC of constant chest pain with pressure that started 2 hours ago. Additionally, the patient reports that she has been experiencing "stomach churning" since her last chemotherapy treatment. The patient reports she started a new chemotherapy treatment last Thursday and has had two treatments thus far. The patient denies that she is on blood thinners and state that she is not a smoker. The patient mentioned she has no history of blood clots, heart attack, or stroke. Home Medications Home Medications Medication Instructions Recorded Confirmed Type albuterol sulfate [ProAir HFA] 2 puff INHALATION Q6H PRN 12/27/18 05/27/19 History amlodipine 2.5 mg PO DAILY 05/27/19 05/27/19 History ondansetron HCl 8 mg PO Q8H PRN 05/27/19 05/27/19 History prochlorperazine maleate 5 mg PO Q6H PRN 05/27/19 05/27/19 History Allergies Allergy/AdvReac Type Severity Reaction Status Date / Time barley Allergy Intermediate INDIGESTION/GI Verified 12/28/18 11:43 SYMPTOMS chocolate flavor Allergy Intermediate HEADACHES Verified 12/28/18 11:43 WITH LARGE QUANTITIES horse dander Allergy Intermediate ITCHING Verified 12/28/18 11:43 mold Allergy Intermediate ITCHING/DIFFICULT Verified 12/28/18 11:43 BREATHING Penicillins Allergy Intermediate Hives Verified 12/28/18 11:43 cheese AdvReac Intermediate CONSTIPATION/GI Verified 12/28/18 11:43 SYMPTOMS Past Med/Surg History Medical History Non-small cell cancer of right lung (Chronic) Dyslipidemia, goal LDL below 130 (Chronic) Chronic cough (Chronic) Mediastinal adenopathy (Chronic) Asthma (Chronic) HAS NOT USED INHALER SINCE PRESCRIBED GERD (gastroesophageal reflux disease) (Chronic) Migraine (Chronic) HX OF 2009 Allergic rhinitis (Resolved) Herpes simplex viral infection (Resolved) Pulmonary nodules (Resolved) TMJ (temporomandibular joint disorder) (Resolved) Surgical History History of tooth extraction (Chronic) History of (Chronic) 1972 Family History Mother Family history of diabetes mellitus Heart disease Father Coronary heart disease Social History Preferred Language: Wolof Communication Ability: Effective Mining Technician Required: No Beliefs That Will Affect Care: None marital status: Current Living Situation: Spouse Feels Safe at Home: Yes Safety Concerns: Feels Safe At This Time Smoking Status: Never smoker Do You Dip or Chew Tobacco: No ; Second Hand E xposure: No ; Tobacco Cessation Education Requested by Patient: No Hx Alcohol Use: No Hx Substance Use: No Review of Systems See HPI for pertinent positives & negatives. and A total of 10 systems reviewed and were otherwise negative Physical Exam Vital Signs Vital Signs - 24 hr 05/27/19 13:50 05/27/19 13:58 05/27/19 14:00 Temperature Temperature Source Sepsis Action Taken by Nursing No Action Required Pulse Rate [Apical] 100 H Respiratory Rate 22 Respiratory Effort / Characteristics Spontaneous Respiratory Depth Blood Pressure [Right Arm] 154/115 H Blood Pressure Mean [Right Arm] 128 Pulse Oximetry 100 100 Oxygen Delivery Method Nasal Cannula Nasal Cannula Oxygen Flow Rate 2 2 05/27/19 14:07 05/27/19 14:09 Temperature 36.6 C Temperature Source Oral Sepsis Action Taken by Nursing Pulse Rate [Apical] 106 H Respiratory Rate 20 Respiratory Effort / Characteristics Spontaneous Respiratory Depth Normal Blood Pressure [Right Arm] 132/95 Blood Pressure Mean [Right Arm] 107 Pulse Oximetry 99 Oxygen Delivery Method Nasal Cannula Nasal Cannula Oxygen Flow Rate 2 2 GENERAL: Uncomfortable appearing, well nourished. Moderate distress. EYE EXAM: Normal conjunctiva. PERRL, no anisocoria and EOM's grossly intact w/o pain. OROPHARYNX: Moist mucous membranes. Grossly normal dentition. NECK: Supple, no nuchal rigidity, no adenopathy, non-tender. No signs of meningismus. CHEST: Port left chest LUNGS: Clear to auscultation. Normal chest wall mechanics. HEART: NSR, no MRG. ABDOMEN: Abdomen soft, Mild epigastric discomfort, normo-active bowel sounds, no masses, no rebound or guarding. BACK: No CVA TTP. SKIN: No rashes and no bruising. UPPER EXTREMITIES: Upper extremities are grossly normal. LOWER EXTREMITIES: No pitting edema. No calf pain. NEURO EXAM: A&O x3, cranial nerves II-XII grossly intact, normal speech, moves all 4 extremities on command w/o issue. Course 1400: Past medical records reviewed. The patient was evaluated in room B1. A complete history and physical exam was performed. 1402: engineering lab technician staff was present in room. 1412: I spoke with Dr. Malin- Misty at bedside and he transported the patient to the home performance laborer. 1506: [facility] and Dr. Thakkar will accept the patient for further evaluation. Administered Medications Eptifibatide (Integrilin) 75 mg in 100 mls @ 5.512 mls/hr IV .Q18H9M COLLEEN; Pr otocol Stop: 05/28/19 11:00 Last Titration: 05/27/19 19:05 Dose: 1 mcg/kg/min, 5.5 mls/hr Documented by: [id number] Cosigned by: [id number] Admin: 05/27/19 17:44 Dose: 1 mcg/kg/min, 5.5 mls/hr Documented by: [id number] Cosigned by: [id number] Potassium Chloride (K Rohit / Wtr) 20 meq in 100 mls @ 50 mls/hr IV Q2H COLLEEN Stop: 05/27/19 21:29 Last Admin: 05/27/19 18:03 Dose: 50 mls/hr Documented by: [id number] Discontinued Medications Amiodarone HCl/Dextrose (Nexterone / D5w ([employer] Use Only)) Confirm Administered Dose 150 mg .ROUTE .STK-MED ONE Stop: 05/27/19 14:41 Last Admin: 05/27/19 16:19 Dose: Not Given Documented by: [id number] Amiodarone HCl/Dextrose (Nexterone / D5w ([employer] Use Only)) Confirm Administered Dose 150 mg .ROUTE .STK-MED ONE Stop: 05/27/19 14:41 Last Admin: 05/27/19 16:19 Dose: Not Given Documented by: [id number] Amiodarone HCl (Cordarone ([employer] Use Only)) Confirm Administered Dose 150 mg .ROUTE .STK-MED ONE Stop: 05/27/19 14:39 Last Admin: 05/27/19 16:18 Dose: 150 mg Documented by: [id number] Aspirin (Aspirin) Confirm Administered Dose 324 mg .ROUTE .STK-MED ONE Stop: 05/27/19 13:58 Last Admin: 05/27/19 13:59 Dose: 324 mg Documented by: [id number] Aspirin (Aspirin) 324 mg PO NOW STA Stop: 05/27/19 13:59 Last Admin: 05/27/19 14:07 Dose: Not Given Documented by: [id number] Fentanyl Citrate (Fentanyl Citrate) Confirm Administered Dose 100 mcg .ROUTE .STK-MED ONE Stop: 05/27/19 14:00 Last Increment: 05/27/19 16:18 Dose: 75 mcg Documented by: [id number] Heparin Sodium (Porcine) (Heparin Iv Bolus ([employer] Use Only)) Confirm Administered Dose 10,000 units .ROUTE .STK-MED ONE Stop: 05/27/19 14:00 Last Admin: 05/27/19 16:18 Dose: 10,000 units Documented by: [id number] Heparin Sodium (Porcine) (Heparin Iv Bolus ([employer] Use Only)) Confirm Administered Dose 20,000 units .ROUTE .STK-MED ONE Stop: 05/27/19 14:51 Last Admin: 05/27/19 16:19 Dose: 1,000 units Documented by: [id number] Heparin Sodium/Sodium Chloride (Heparin/Nss 1000 Unit/500ml Flush Bag) Confirm Administered Dose 3,000 units IV .STK-MED ONE Stop: 05/27/19 14:00 Last Admin: 05/27/19 16:18 Dose: 3,000 units Documented by: [id number] Sodium Chloride (Nss 1000ml) 1,000 mls @ 100 mls/hr IV .Q10H COLLEEN Stop: 05/27/19 21:44 Last Admin: 05/27/19 17:51 Dose: Not Given Documented by: [id number] Lorazepam (Ativan) 1 mg in 2 mls @ 0.5 mls/min IV ONE ONE Stop: 05/27/19 18:59 Last Admin: 05/27/19 19:13 Dose: 0.5 mls/min Documented by: [id number] Metoprolol Tartrate (Lopressor) 2.5 mg IV NOW STA Stop: 05/27/19 18:44 Last Admin: 05/27/19 18:47 Dose: 2.5 mg Documented by: [id number] Metoprolol Tartrate (Lopressor) Confirm Administered Dose 5 mg IV .STK-MED ONE Stop: 05/27/19 18:45 Last Admin: 05/27/19 18:48 Dose: Not Given Documented by: [id number] Midazolam HCl (Versed) Confirm Administered Dose 2 mg .ROUTE .STK-MED ONE Stop: 05/27/19 14:00 Last Admin: 05/27/19 16:18 Dose: 2 mg Documented by: [id number] Midazolam HCl (Versed) Confirm Administered Dose 2 mg .ROUTE .STK-MED ONE Stop: 05/27/19 15:15 Last Increment: 05/27/19 16:20 Dose: 1 mg Documented by: [id number] Morphine Sulfate (Morphine Sulfate) 4 mg IV NOW STA Stop: 05/27/19 13:59 Last Admin: 05/27/19 17:04 Dose: Not Given Documented by: [id number] Nicardipine HCl (Cardene) Confirm Administered Dose 25 mg .ROUTE .STK-MED ONE Stop: 05/27/19 14:00 Last Admin: 05/27/19 16:17 Dose: 25 mg Documented by: [id number] Nitroglycerin (Nitrostat) Confirm Administered Dose 0.4 mg .ROUTE .STK-MED ONE Stop: 05/27/19 13:58 Last Admin: 05/27/19 13:59 Dose: 0.4 mg Documented by: [id number] Nitroglycerin/Dextrose (Nitroglycerin/D5w 100 Mcg/Ml 20ml Syringe) Confirm Administered Dose 2,000 mcg .ROUTE .STK-MED ONE Stop: 05/27/19 14:00 Last Admin: 05/27/19 16:18 Dose: 2,000 mcg Documented by: [id number] Norepinephrine Bitartrate (Levophed (Secret[employer] Use Only)) Confirm Administered Dose 8 mg .ROUTE .STK-MED ONE Stop: 05/27/19 14:40 Last Admin: 05/27/19 16:19 Dose: Not Given Documented by: [id number] Ondansetron HCl (Zofran) Confirm Administered Dose 4 mg .ROUTE .STK-MED ONE Stop: 05/27/19 15:12 Last Admin: 05/27/19 16:20 Dose: 4 mg Documented by: [id number] Ticagrelor (Brilinta) 180 mg PO ONE ONE Stop: 05/27/19 14:00 Last Admin: 05/27/19 16:17 Dose: 180 mg Documented by: [id number] Ticagrelor (Brilinta) Confirm Administered Dose 180 mg PO .STK-MED ONE Stop: 05/27/19 16:18 Last Admin: 05/27/19 17:04 Dose: Not Given Documented by: [id number] Medical Decision Making Differential Diagnosis I considered multiple diagnoses including myocardial infarction, chest wall pain, pericarditis, myocarditis, aortic emergencies, pulmonary embolism, congestive heart failure, GI causes, and other significant cardiopulmonary disorders, stemi chest pain. Medical Records Attestation: I reviewed the patient's medical records. Home Medications Current Medication List: was personally reviewed by me Laboratory Data Attestation: I reviewed the patient's lab results. Result diagrams: 05/27/19 14:01 05/27/19 14:01 Lab Results 05/27/19 05/27/19 05/27/19 Range/Units 14:01 14:01 14:01 WBC 4.81 (4.8-10.8) K/uL RBC 3.18 L (4.2-5.4) M/uL Hgb 9.5 L (12.0-16.0) g/dL POC Hgb (12.0-16.0) g/dl Hct 28.5 L (37-47) % POC Hct (37-47) % MCV 89.6 (80-100) fL MCH 29.9 (25-34) pg MCHC 33.3 (32-36) g/dL RDW Std Deviation 52.8 H (36.4-46.3) fL RDW Coeff of Azael 16.5 H (11.5-14.5) % Plt Count 336 (130-400) K/uL MPV 8.6 (7.4-10.4) fL Immature Gran % (Auto) 0.8 % Neut % (Auto) 38.9 % Lymph % (Auto) 46.6 % [place] % (Auto) 13.5 % Eos % (Auto) 0.0 % Baso % (Auto) 0.2 % Immature Gran # (Auto) 0.04 H (0.00-0.02) K/uL Neut # (Auto) 1.87 (1.4-6.5) K/uL Lymph # (Auto) 2.24 (1.2-3.4) K/uL [place] # (Auto) 0.65 H (0.11-0.59) K/uL Eos # (Auto) 0.00 (0-0.5) K/uL Baso # (Auto) 0.01 (0-0.2) K/uL PT 10.6 (9.0-12.0) Seconds INR 1.0 (0.9-1.1) APTT 24.5 (21.0-31.0) Seconds PTT Ratio 0.9 POC Sodium (135-144) mEq/L Sodium 135 L (136-145) mmol/L POC Potassium (3.3-5.0) mEq/L Potassium 3.2 L (3.5-5.1) mmol/L POC Chloride (101-112) mEq/L Chloride 100 (98-107) mmol/L Carbon Dioxide 26 (21-32) mmol/L POC Total CO2 (24-31) mEq/l Anion Gap 10.0 (3-11) POC Anion Gap (16-25) mmol/L POC BUN (7-18) mg/dl BUN 12 (7-18) mg/dl Creatinine 1.63 H (0.6-1.2) mg/dl POC Creatinine (0.6-1.3) mg/dl Est Cr Clr Drug Dosing 32.9 ml/min Est GFR ( Amer) 38.5 Est GFR (Non-Af Amer) 33.2 BUN/Creatinine Ratio 7.2 L (10-20) Glucose 148 H (70-99) mg/dl POC Glucose (other) (70-99) mg/dl Calcium 9.4 (8.5-10.1) mg/dl POC Ioniz Calcium Mo (1.12-1.32) mmol/l Magnesium 2.0 (1.8-2.4) mg/dl Total Bilirubin 0.4 (0.2-1) mg/dl AST 20 (15-37) U/L ALT 19 (12-78) U/L Alkaline Phosphatase 100 (45-117) U/L Total Creatine Kinase 56 (26-192) U/L CK-MB (CK-2) 2.1 (0.5-3.6) ng/ml CK/CKMB % Calc 3.8 H (0-3.0) POC Troponin I (0-0.045) ng/ml Troponin I 0.369 H* (0-0.045) ng/ml Total Protein 7.5 (6.4-8.2) gm/dl Albumin 3.5 (3.4-5.0) gm/dl Globulin 4.0 (2.5-4.0) gm/dl Albumin/Globulin Ratio 0.9 (0.9-2) Lipase 171 (73-393) U/L TSH 2.750 (0.300-4.500) uIu/ml 05/27/19 05/27/19 Range/Units 14:01 14:01 WBC (4.8-10.8) K/uL RBC (4.2-5.4) M/uL Hgb (12.0-16.0) g/dL POC Hgb 9.5 L (12.0-16.0) g/dl Hct (37-47) % POC Hct 28 L (37-47) % MCV (80-100) fL MCH (25-34) pg MCHC (32-36) g/dL RDW Std Deviation (36.4-46.3) fL RDW Coeff of Azael (11.5-14.5) % Plt Count (130-400) K/uL MPV (7.4-10.4) fL Immature Gran % (Auto) % Neut % (Auto) % Lymph % (Auto) % [place] % (Auto) % Eos % (Auto) % Baso % (Auto) % Immature Gran # (Auto) (0.00-0.02) K/uL Neut # (Auto) (1.4-6.5) K/uL Lymph # (Auto) (1.2-3.4) K/uL [place] # (Auto) (0.11-0.59) K/uL Eos # (Auto) (0-0.5) K/uL Baso # (Auto) (0-0.2) K/uL PT (9.0-12.0) Seconds INR (0.9-1.1) APTT (21.0-31.0) Seconds PTT Ratio POC Sodium 133 L (135-144) mEq/L Sodium (136-145) mmol/L POC Potassium 3.3 (3.3-5.0) mEq/L Potassium (3.5-5.1) mmol/L POC Chloride 98 L (101-112) mEq/L Chloride (98-107) mmol/L Carbon Dioxide (21-32) mmol/L POC Total CO2 25 (24-31) mEq/l Anion Gap (3-11) POC Anion Gap 15.0 L (16-25) mmol/L POC BUN 10 (7-18) mg/dl BUN (7-18) mg/dl Creatinine (0.6-1.2) mg/dl POC Creatinine 1.6 H (0.6-1.3) mg/dl Est Cr Clr Drug Dosing ml/min Est GFR ( Amer) Est GFR (Non-Af Amer) BUN/Creatinine Ratio (10-20) Glucose (70-99) mg/dl POC Glucose (other) 149 H (70-99) mg/dl Calcium (8.5-10.1) mg/dl POC Ioniz Calcium Mo 1.12 (1.12-1.32) mmol/l Magnesium (1.8-2.4) mg/dl Total Bilirubin (0.2-1) mg/dl AST (15-37) U/L ALT (12-78) U/L Alkaline Phosphatase (45-117) U/L Total Creatine Kinase (26-192) U/L CK-MB (CK-2) (0.5-3.6) ng/ml CK/CKMB % Calc (0-3.0) POC Troponin I 0.27 H (0-0.045) ng/ml Troponin I (0-0.045) ng/ml Total Protein (6.4-8.2) gm/dl Albumin (3.4-5.0) gm/dl Globulin (2.5-4.0) gm/dl Albumin/Globulin Ratio (0.9-2) Lipase (73-393) U/L TSH (0.300-4.500) uIu/ml Imaging Data Radiologist's Impression: Radiology results as stated below per my review and the radiologist's interpretation: XR chest 1V portable CLINICAL HISTORY: Chest pain dyspnea COMPARISON STUDY: 01/24/2018 FINDINGS: Central catheter in superior vena cava. Improving diffuse pulmonary nodularity. Interval development of subsegmental atelectasis versus infiltrate right base. Diaphragms are smooth. IMPRESSION: 1. Interval development of subsegmental atelectasis versus focal infiltrative change medial right base. 2. Improving pulmonary nodularity. The above report was generated using voice recognition software. It may contain grammatical, syntax or spelling errors. Electronically signed by: Juan Jose Ramirez M.D. 05/27/2019 2:09 PM ECG Data Attestation: I personally reviewed and interpreted this ECG as follows: Indication: chest pain Rate (beats per minute): 94 Rhythm: normal sinus Findings: + other (Normal intervals, normal axis, aVL concordinate impression inferiorly, acute STEMI) and + ST elevation (Anteriorly) Blood Pressure Blood Pressure Findings: Normal blood pressure Blood Pressure Disposition: further management by hospitalist MDM Narrative The patient is a 63 year old white female w/ PMHx of lung cancer who presents to the ED w/ CC of constant chest pain with pressure that started 2 hours ago. Patient was immediately seen in B1 after an overhead page. The patient had initially developed some arm pain which proceeded to chest pains. Patient initially thought maybe this is related more to the esophageal reflux. The patient is mildly uncomfortable in appearance. The patient's initial EKG is concerning for an acute STEMI with elevations anteriorly as well as in aVL with concordant depressions inferiorly. The patient has no prior history and does not take any blood thinners. The patient was ordered an aspirin load, Brilinta load, and nitro. I did speak with the land development project manager at the bedside. The patient was subsequently consented and taken to the cardiac [employer] for a cardiac catheterization. I did speak with the on-call hospitalist who agreed to further evaluate treat the patient. The patient had also been evaluated by the medical staff services coordinator at the bedside briefly as the patient will be sent to the intensive care unit post catheterization. Impression & Plan ST elevation (STEMI) myocardial infarction, Chest pain, History of lung cancer Critical Care Time Critical Care Time: Yes Total Critical Care Time: 30 I have personally spent 30 minutes of critical care time in the direct management of this patient. This includes bedside care, interpretation of diagnostic studies, and testing, discussion with consultants, patient, and family members, and other required patient management activities. This 30 minutes is in excess of all separately billable procedures. Discharge Plan Visit Data *Final* Discharge Date/Time: 05/27/19 14:09 Chief Complaint: Chest Pain Stated Complaint: CANCER PATIENT ,PAIN ED Provider: Amando Keller Discharge Problem: ST elevation (STEMI) myocardial infarction, Chest pain, History of lung cancer Patient Disposition: Admitted As Inpatient Discharge Instructions Interventions: ED Discharge Assessment Last Done: 05/27/19 14:09 Discharge Problem: ST elevation (STEMI) myocardial infarction Qualifiers: Involved coronary artery: unspecified coronary artery Qualified Code(s): I21.3 - ST elevation (STEMI) myocardial infarction of unspecified site Chest pain Qualifiers: Chest pain type: chest pain due to myocardial ischemia Ischemic chest pain type: unstable angina pectoris Qualified Code(s): I20.0 - Unstable angina The scribe's documentation has been prepared under my direction and personally reviewed by me in its entirety. I confirm that the note above accurately reflects all work, treatment, procedures, and medical decision making performed by me.
[2019-05-28] MEDS: EPTIFIBATIDE 75 MG/100 ML VIAL IV SCH (02:11)
[2019-05-28] MEDS: TICAGRELOR 90 MG TAB PO SCH ×3 (02:13→20:30)
[2019-05-28 04:43] LABS: Hematocrit (blood only) 22.9 % (37-47); Hemoglobin 7.8 g/dL (12.0-16.0); Mean Corpuscular Hemoglobin 30.5 pg (25-34); Mean Corpuscular Hgb Conc 34.1 g/dL (32-36); Mean Corpuscular Volume 89.5 fL (80-100); Mean Platelet Volume 8.4 fL (7.4-10.4); Platelet Count 286 K/uL (130-400); RDW Coefficient of Variation 16.5 % (11.5-14.5); RDW Standard Deviation 53.1 fL (36.4-46.3); Red Blood Count 2.56 M/uL (4.2-5.4); White Blood Count 8.93 K/uL (4.8-10.8)
[2019-05-28 04:59] LABS: BUN Creatinine Ratio 7.2 (10-20); Calcium 8.6 mg/dl (8.5-10.1); Est GFR (African American) 54.1; Est GFR (Non-African American) 46.6; Potassium 3.4 mmol/L (3.5-5.1)
[2019-05-28 05:04] LABS: Troponin I 33.8 ng/ml (0-0.045)
[2019-05-28 05:11] LABS: Eosinophils # (auto) 0.01 K/uL (0-0.5); Eosinophils % (auto) 0.1 %; Immature Granulocytes # (auto) 0.07 K/uL (0.00-0.02); Immature Granulocytes % (auto) 0.8 %; Lymphocytes # (auto) 1.52 K/uL (1.2-3.4); Monocytes % (auto) 12.3 %; Neutrophils # (auto) 6.23 K/uL (1.4-6.5); Neutrophils % (auto) 69.8 %
[2019-05-28 05:17] LABS: Hematocrit (blood only) 22.3 % (37-47); Hemoglobin 7.3 g/dL (12.0-16.0); Mean Corpuscular Hemoglobin 29.2 pg (25-34); Mean Corpuscular Volume 89.2 fL (80-100); Mean Platelet Volume 8.3 fL (7.4-10.4); Platelet Count 234 K/uL (130-400); RDW Coefficient of Variation 16.6 % (11.5-14.5); RDW Standard Deviation 53.4 fL (36.4-46.3); White Blood Count 6.58 K/uL (4.8-10.8)
[2019-05-28 05:27] LABS: Mean Corpuscular Hgb Conc 32.7 g/dL (32-36)
[2019-05-28] MEDS ORDERED: POTASSIUM CHLORIDE 10 MEQ TABCR PO STA (06:01)
[2019-05-28] MEDS ORDERED: SODIUM CHLORIDE 0.9% 250 ML IV PRN (06:11)
--- NOTE | 2019-05-28 06:32 | Critical Care Progress Note ---
Date of Service May 28, 2019 Assessment & Plan (1) Left ventricular dysfunction: Elena is a 63-year-old female with history of non-small cell carcinoma who presented with ST elevation ID requiring PCI x3 to the LAD with LAD dissection was currently in the ICU for postop care. Neuro - [facility] ICU: Negative Cardiac - STEMI presented with chest pain and found to have ST elevation in anterior leads Troponin peaked at 34, now downtrending Status post cardiac catheterization for 100% occlusion LAD PCI x3 and prolonged balloon angioplasty of middistal LAD for dissection Cardiology following, recommends continuing Brilinta, aspirin, and atorvastatin. Stop amlodipine. Metoprolol tartrate 2.5 mg IV every 6 hours Repeat EKG postop shows prolonged QT, ST elevation in V2, V3. Repeat EKG tomorrow morning. Echo: LVEF reduced 30-35%. No thrombus. Large area of akinesis of the mid and distal anterior wall and apex. Respiratory - History of non-small cell carcinoma on chemo every other Thursday Last infusion 05/20 Hemoglobin decreased, transfuse as below. GI - Protonix 40 mg every morning Heart healthy diet RENAL/LYTES - JESSICA in the setting of [place] Creatinine elevated to 1.6 on admit with no known baseline. Downtrending to 1.23 today BMP daily Avoid nephrotoxins - Strict I's and O's ENDO - No history diabetes or thyroid disease ICU hyperglycemic protocol HEME - Normocytic anemia Anemic to 9.5 at baseline in the setting of chemotherapy Acutely down trended from 7.8-7.3 this morning. Given target goal of 8 g/dL in the setting of heart disease consented and transfused 1 unit packed red blood cells Pretreated with diphenhydramine 25 mg given patient's reported history of "lots of sensitivities with hives " CBC daily ID - No indication for infectious process at this time LINES/IV ACCESS - Peripheral IVs DVT PROPHYLAXIS - SCDs, holding anticoagulation 2/2 Integrilin Thank you for allowing us to participate in the care of this patient. Please refer to Dr. Sierra's documentation for any further recommendations. (2) Hypercholesterolemia: (3) ST elevation (STEMI) myocardial infarction: (4) CKD (chronic kidney disease), stage III: (5) History of lung cancer: (6) Anemia: (7) DVT prophylaxis: (8) HTN (hypertension): (9) Admitted to intensive care unit: (10) Non-small cell cancer of right lung: (11) Dyslipidemia, goal LDL below 130: (12) STEMI (ST elevation myocardial infarction): Supervising Physician Co-Signing Physician Notes Dr. Sheehan was resident physician during care of patient. I separately evaluated patient for paul portions of the history and the exam. I was present during the critical portion of medical decision making, and I discussed the case with the resident. I generally agree with the findings and plan. Patient has had decreased H&H we will transfuse 1 unit for possible ongoing ischemia if there were to be any extension of dissection. Integrilin is slated to stop after 18 hours of total infusion.Overnight she had a quad size syncopal event while on the stool she did not fall and hit her head or any other sort of traumatic injury. Patient had very mild hypokalemia this morning, patient is still extremely anxious and appears to Be re-enumerating on her cancer diagnosis as well. I have personally spent 30 minutes of critical care time in the direct management of this patient. This is a life/limb threatening event. This includes time spent evaluating patient, direct bedside care, chart review, placing orders, interpretation of diagnostic studies, discussion with consultants, patient, and/or family members regarding treatment decisions, as well as other required patient management activities. This time is exclusive of all separately billable procedures, and teaching time and separate from and in addition to any other critical care service time. Rey Zapata reports she "is not sure "she did overnight. She is seen at bedside and denies chest pain, chest pressure, palpitations, lightheadedness, dizziness, nausea, abdominal pain this morning. She reports that she normally gets nauseous very easily with medications, but is okay this morning. She declines Lipitor this morning. She reports that it made her "extremely, horribly ill "for about 4 hours in the past with severe nausea. The risk benefits of statin therapy were discussed with her at length, and she expresses that she understands that not being on a statin puts her at risk for both increased cholesterol plaques and plaque rupture which can lead to heart attacks or strokes. She reports she is absolutely unwilling to try Lipitor because of how sick she felt the last time she took it, and does not wish to try another statin at this time. She reports no pain in her right wrist or hand where her hematoma was yesterday she denies any sensation change, numbness, or tingling in her hands today. She does not know any focal or general weakness today, including in her right hand. Denies rashes and other skin changes this morning. Her hemoglobin dropped overnight, blood transfusion was discussed with her. She was consented for 1 unit of packed red blood cells. She reports she has "developed hives easily "in the past to multiple allergies, although she has never had a before. Review of Systems Review of Systems: 10 point review of systems negative except as noted in HPI. Physical Exam Physical Exam: General: A&Ox3. NAD. Cooperative. HEENT: Atraumatic, normocephalic. Pulm: CTAB A&P. -wheezes, -rales, -rhonchi. Symmetrical chest rise. No increase work of breathing. No respiratory distress. Cardiac: RRR, -mrg. Radial pulses intact and symmetrical. PT pulses intact and symmetrical. No JVD. Abdominal: Nontender, nondistended, soft. BS present. Extremities: Right forearm hematoma resolved. No appreciable ecchymosis at this time. Sensation intact in distal upper and lower extremities bilaterally. 5/5 strength to finger flexion, finger extension, lpn care manager strength, elbow flexion, elbow extension, shoulder internal/external rotation, hip flexion, ankle plantar flexion/dorsiflexion bilaterally. Results & Data Vital Signs (Past 12 Hours) Vital Signs Temp Pulse Resp BP Pulse Ox 05/28/19 05:01 80 17 98 05/28/19 05:00 85 16 104/69 99 05/28/19 04:31 86 16 05/28/19 04:30 84 17 121/78 05/28/19 04:01 91 H 20 99 05/28/19 04:00 87 18 107/68 99 05/28/19 03:31 36.8 C 83 15 96 05/28/19 03:30 87 14 108/70 99 05/28/19 03:01 84 13 99 05/28/19 03:00 86 16 110/68 98 05/28/19 02:31 80 21 100 05/28/19 02:30 83 17 103/66 100 05/28/19 02:01 78 12 98 05/28/19 02:00 82 12 105/64 99 05/28/19 01:30 82 15 101/70 97 05/28/19 01:01 82 13 97 05/28/19 01:00 77 16 108/70 99 05/28/19 00:47 88 20 122/75 05/28/19 00:30 87 16 98 05/28/19 00:10 84 18 100 05/28/19 00:01 84 24 99 05/28/19 00:00 81 20 121/77 100 05/27/19 23:50 91 H 24 100 05/27/19 23:45 36.8 C 91 H 14 100 05/27/19 23:31 85 21 98 05/27/19 23:30 84 25 H 105/66 99 05/27/19 23:15 86 17 108/77 100 05/27/19 23:01 94 H 18 97 05/27/19 23:00 89 18 102/74 100 05/27/19 22:46 88 22 100 05/27/19 22:45 87 22 98/63 L 99 05/27/19 22:31 89 18 100 05/27/19 22:30 86 18 110/75 97 05/27/19 22:16 94 H 18 100 05/27/19 22:15 93 H 30 H 110/83 100 05/27/19 22:01 85 13 100 05/27/19 22:00 83 11 L 98/65 L 99 05/27/19 21:46 79 13 100 05/27/19 21:45 82 17 107/73 98 05/27/19 21:31 81 16 98 05/27/19 21:30 81 18 115/79 100 05/27/19 21:16 77 21 99 05/27/19 21:15 75 20 117/81 100 05/27/19 21:01 79 21 99 05/27/19 21:00 80 17 107/72 100 05/27/19 20:46 79 18 99 05/27/19 20:45 79 15 98/72 L 99 05/27/19 20:31 79 21 97 05/27/19 20:30 82 22 115/80 98 05/27/19 20:16 77 19 98 05/27/19 20:15 77 16 112/79 99 05/27/19 20:11 84 05/27/19 20:01 79 12 98 05/27/19 20:00 74 16 105/74 99 05/27/19 19:46 77 16 98 05/27/19 19:45 73 13 94/66 L 99 05/27/19 19:33 85 19 98 05/27/19 19:32 84 18 92/53 L 99 05/27/19 19:30 90 24 98 05/27/19 19:16 90 16 98 05/27/19 19:15 89 17 136/96 100 05/27/19 19:01 85 18 100 05/27/19 19:00 36.8 C 85 18 134/95 99 05/27/19 18:47 103 H 156/110 H 05/27/19 18:45 106 H 19 156/110 H 100 05/27/19 18:31 99 H 25 H 165/93 H 100 PG Care Time/CCT Total # of Minutes Spent Total Time Spent with Patient: Total time spent is greater than 50% in coordination of care (as documented) at patient's floor/unit and/or counseling patient: Critical Care Time: Yes Total Critical Care Time: 30 Resident Activity Tracking Resident Involvement: Resident Care Provided Care Provided: Adult Hospital Medicine (1) ST elevation (STEMI) myocardial infarction Involved coronary artery: unspecified coronary artery Qualified Code(s): I21.3 - ST elevation (STEMI) myocardial infarction of unspecified site
[2019-05-28 06:43] LABS: Estimated Average Glucose 108 mg/dl; Hemoglobin A1C 5.4 % (4.5-5.6)
[2019-05-28] MEDS: ASPIRIN 81 MG ECTAB PO SCH (08:20)
[2019-05-28] MEDS: ATORVASTATIN 40 MG TAB PO SCH ×2 (08:20→08:23)
[2019-05-28] MEDS: PANTOprazole 40 MG TAB PO SCH (08:20)
[2019-05-28] MEDS ORDERED: DiphenhydrAMINE HCL 50 MG/ML VIAL IV SCH (08:30)
[2019-05-28] MEDS ORDERED: AMLODIPINE BESYLATE 5 MG TAB PO SCH (09:00)
--- NOTE | 2019-05-28 15:35 | Hospitalist Progress Note ---
Date of Service May 28, 2019 Assessment & Plan (1) Admitted to intensive care unit: (2) STEMI (ST elevation myocardial infarction): Patient is a 63 yr female who has significant past medical history of non-small cell CA of right lung, HTN, HLD, CKD-3, GERD, asthma who presents to [facility] ED as heart alert. Anterior STEMI S/P Cardiac Cath: 100% mid LAD occlusion, severe multivessel non-culprit coronary artery disease Successful PCI of ostial to mid LAD with 3 overlapping drug-eluting stents Prolonged balloon angioplasty of relate-mid downstream LAD dissection Completed Integrilin infusion for 18 hours Appreciate Cardiology/Critical Care Input Continue aspirin, Lipitor, Brilinta Consider adding metoprolol as able Transfuse PRBCs PRN (3) Non-small cell cancer of right lung: Ongoing chemotherapy; last cycle was 1 week ago Follows with Dr. Carr as outpatient Next chemotherapy--scheduled for next week (4) HTN (hypertension): Amlodipine on hold Monitor (5) Dyslipidemia, goal LDL below 130: Continue lipitor (6) Anemia: Normocytic, normochromic Likely multifactorial--anemia of chronic disease, chemotherapy Monitor CBC (7) CKD (chronic kidney disease), stage III: Baseline cr 1.5 Monitor renal function Avoid Nephrotoxic agents as able (8) DVT prophylaxis: SCD/TEDS Disposition: To be determined Follow up: PCP Dr. Alba upon discharge along with appropriate cardiology follow up Subjective Patient is seen and examined at bedside Denies any chest pain, shortness of breath, dizziness, nausea, abdominal pain this morning Received 1 unit of PRBCs today Concerned about her upcoming chemotherapy next week Completed 18 over transfusion of Integrilin Plan to continue monitoring in ICU, for possible ongoing ischemia Family at bedside Review of Systems Review of Systems: All systems reviewed & are unremarkable except as noted in HPI & below Physical Exam Physical Exam: Physical Exam: Vitals signs as noted above General Appearance:Moderately built and nourished, no apparent distress Head: normocephalic, Atraumatic Eyes: normal inspection, EOMI Neck: supple, Trachea midline Respiratory/Chest: Normal breath sounds, CTA, Chemo port on left side Cardiovascular: S1, S2, No murmur Abdomen/GI:Soft, Non tender, Bowel sounds present Extremities/Musculoskelatal:normal inspection, no edema Neurologic/Psych:AAOX3, grossly no focal neurological deficits Skin: normal color, warm Results & Data Vital Signs (Past 12 Hours) Vital Signs Temp Pulse Resp BP Pulse Ox 05/28/19 14:05 100 H 15 104/76 98 05/28/19 13:00 105 H 19 127/81 99 05/28/19 12:00 101 H 21 121/78 100 05/28/19 11:23 36.8 C 94 H 20 115/80 98 05/28/19 11:00 36.8 C 97 H 21 121/77 98 05/28/19 10:00 36.8 C 97 H 20 112/74 97 05/28/19 09:30 36.9 C 99 H 20 122/81 99 05/28/19 09:15 36.9 C 93 H 20 101/71 98 05/28/19 09:00 36.9 C 102 H 21 123/78 98 05/28/19 08:00 36.8 C 103 H 18 117/72 99 05/28/19 07:01 85 14 92 05/28/19 07:00 91 H 12 111/71 97 05/28/19 06:31 96 H 22 99 05/28/19 06:30 93 H 21 112/72 93 05/28/19 06:01 85 18 95 05/28/19 06:00 87 21 108/71 92 05/28/19 05:31 88 15 97 05/28/19 05:30 84 18 114/73 97 05/28/19 05:01 80 17 98 05/28/19 05:00 85 16 104/69 99 05/28/19 04:31 86 16 05/28/19 04:30 84 17 121/78 05/28/19 04:01 91 H 20 99 05/28/19 04:00 87 18 107/68 99 Laboratory Results Short CBC 05/28/19 05/28/19 Range/Units 04:27 05:07 WBC 8.93 6.58 (4.8-10.8) K/uL Hgb 7.8 L 7.3 L (12.0-16.0) g/dL Hct 22.9 L 22.3 L (37-47) % Plt Count 286 234 (130-400) K/uL BMP 05/28/19 04:27 Sodium 138 Potassium 3.4 L Chloride 104 Carbon Dioxide 26 BUN 9 Creatinine 1.23 H D Glucose 118 H Calcium 8.6 Cardiac Enzymes 05/27/19 05/28/19 Range/Units 22:31 04:27 Troponin I 34.600 H* 33.800 H* (0-0.045) ng/ml Urine 05/27/19 Range/Units 17:30 Urine Color Yellow Urine Appearance Clear (Clear) Urine pH 7.5 (4.5-7.5) Ur Specific [place] 1.021 (1.000-1.030) Urine Protein Negative (Negative) Urine Glucose (UA) Negative (Negative)
--- NOTE | 2019-05-28 16:52 | Cardiology Progress Note ---
Date of Service May 28, 2019 Assessment & Plan (1) STEMI (ST elevation myocardial infarction): The patient had 3 drug-eluting stents placed in the LAD. There was a limited distal dissection. Echocardiogram today notes an ejection fraction of 30-35% with a large anteroapical wall motion abnormality. No left ventricular thrombus. Would continue Brilinta, aspirin, and atorvastatin. Would discontinue amlodipine and substitute low-dose metoprolol succinate when her blood pressure allows. (2) Left ventricular dysfunction: As above, moderate left ventricular dysfunction with ejection fraction of 30-35% and a large anteroapical wall motion abnormality. Would attempt at low- dose metoprolol succinate and an ACEI when blood pressure allows. (3) Hypercholesterolemia: Continue atorvastatin. Subjective The patient is resting comfortably in bed without complaints of chest pain or dyspnea. Physical Exam Physical Exam: In general this is a well-developed well-nourished white female in no acute distress. HEENT exam is negative. Neck is supple with full carotid upstrokes. There are no carotid bruits. Jugular venous pressure is flat at 90. There is no thyromegaly. Cardiovascular exam reveals a regular rhythm with a normal S1 and S2. No S3, S4, or murmurs are noted. Lungs note distant breath sounds.. Abdomen is soft and nontender without bruits. Extremities reveal intact radial artery and posterior tibial pulses bilaterally. There is no peripheral edema. Results & Data Vital Signs (Past 12 Hours) Vital Signs Temp Pulse Resp BP Pulse Ox 05/28/19 16:00 36.8 C 96 H 20 115/72 99 05/28/19 15:00 98 H 17 110/72 98 05/28/19 14:05 100 H 15 104/76 98 05/28/19 13:00 105 H 19 127/81 99 05/28/19 12:00 101 H 21 121/78 100 05/28/19 11:23 36.8 C 94 H 20 115/80 98 05/28/19 11:00 36.8 C 97 H 21 121/77 98 05/28/19 10:00 36.8 C 97 H 20 112/74 97 05/28/19 09:30 36.9 C 99 H 20 122/81 99 05/28/19 09:15 36.9 C 93 H 20 101/71 98 05/28/19 09:00 36.9 C 102 H 21 123/78 98 05/28/19 08:00 36.8 C 103 H 18 117/72 99 05/28/19 07:01 85 14 92 05/28/19 07:00 91 H 12 111/71 97 05/28/19 06:31 96 H 22 99 05/28/19 06:30 93 H 21 112/72 93 05/28/19 06:01 85 18 95 05/28/19 06:00 87 21 108/71 92 05/28/19 05:31 88 15 97 05/28/19 05:30 84 18 114/73 97 05/28/19 05:01 80 17 98 05/28/19 05:00 85 16 104/69 99 Laboratory Results Troponin I level peaked at 34.6. Diagnostic Findings front desk monitor is benign. PG Care Time/CCT Total # of Minutes Spent Total Time Spent with Patient: Total time spent is greater than 50% in coordination of care (as documented) at patient's floor/unit and/or counseling patient:
[2019-05-28 20:34] LABS: Hematocrit (blood only) 26.2 % (37-47)
[2019-05-29 04:14] LABS: Hematocrit (blood only) 27.9 % (37-47); Hemoglobin 9.3 g/dL (12.0-16.0); Mean Corpuscular Hemoglobin 29.9 pg (25-34); Mean Corpuscular Hgb Conc 33.3 g/dL (32-36); Mean Corpuscular Volume 89.7 fL (80-100); Platelet Count 249 K/uL (130-400); RDW Coefficient of Variation 17.1 % (11.5-14.5); RDW Standard Deviation 53.6 fL (36.4-46.3); Red Blood Count 3.11 M/uL (4.2-5.4); White Blood Count 7.71 K/uL (4.8-10.8)
[2019-05-29 04:33] LABS: Calcium 8.6 mg/dl (8.5-10.1); Creatinine Clr Calc Pharmacy 38.3 ml/min; Est GFR (Non-African American) 40.6; Magnesium 1.8 mg/dl (1.8-2.4); Potassium 3.9 mmol/L (3.5-5.1)
[2019-05-29] MEDS ORDERED: DiphenhydrAMINE HCL 50 MG/ML VIAL IV SCH (06:00)
--- NOTE | 2019-05-29 06:01 | Critical Care Progress Note ---
Date of Service May 29, 2019 Assessment & Plan (1) STEMI (ST elevation myocardial infarction): Elena is a 63-year-old female with history of non-small cell carcinoma who presented with ST elevation [place] requiring PCI x3 to the LAD with LAD dissection was currently in the ICU for postop care. Neuro - [facility] ICU: Negative Cardiac - STEMI presented with chest pain and found to have ST elevation in anterior leads Troponin peaked at 34, now downtrending Status post cardiac catheterization for 100% occlusion LAD PCI x3 and prolonged balloon angioplasty of middistal LAD for dissection Cardiology following, recommends continuing Brilinta, aspirin, and atorvastatin. Stop amlodipine. Metoprolol tartrate 2.5 mg IV every 6 hours Repeat EKG postop shows prolonged QT, ST elevation in V2, V3. Repeat EKG pending Echo: LVEF reduced 30-35%. No thrombus. Large area of akinesis of the mid and distal anterior wall and apex. Respiratory - History of non-small cell carcinoma on chemo every other Thursday Last infusion 05/20 Hemoglobin decreased, follow 1u pRBC increased from 7.3 to 9.0 and stable today at 9.3 GI - Protonix 40 mg every morning Heart healthy diet RENAL/LYTES - JESSICA in the setting of [place] Creatinine elevated to 1.6 on admit with no known baseline. Initially downtrended to 1.23, increased to 1.38 today - BUN/Cr <20, UA+microscopy ?ATN - Magnesius 1.8. +MagOx 400mg x2 doses BMP daily - Strict I's and O's ENDO - No history diabetes or thyroid disease ICU hyperglycemic protocol HEME - Normocytic anemia Anemic to 9.5 at baseline in the setting of chemotherapy Acutely down trended from 7.8-7.3 this morning following procedure. Recieved 1u pRBC with appropriate rise and now stable at 9.3 CBC daily ID - No indication for infectious process at this time LINES/IV ACCESS - Peripheral IVs DVT PROPHYLAXIS - PHarmacopryphylaxis held following eptifibatide. SCDs, Ambulate Disposition: Stable for downgrade Thank you for allowing us to participate in the care of this patient. Please refer to Dr. Sierra's documentation for any further recommendations. (2) Asthma: (3) GERD (gastroesophageal reflux disease): (4) HTN (hypertension): (5) DVT prophylaxis: (6) CKD (chronic kidney disease), stage III: (7) Non-small cell cancer of right lung: (8) Dyslipidemia, goal LDL below 130: (9) ST elevation (STEMI) myocardial infarction: Supervising Physician Co-Signing Physician Notes Dr. Sheehan was resident physician during care of patient. I separately evaluated patient for paul portions of the history and the exam. I was present during the critical portion of medical decision making, and I discussed the case with the resident. I generally agree with the findings and plan. H&H appears to be stable, mildly worsened creatinine continue to hold lisinopril will require this added as his creatinine continues to improve adding low-dose metoprolol per cardiology recommendations discontinuing amlodipine at this time. Patient is stable for downgrade out of ICU to to limit Subjective Elena reports her night was overall uneventful. She has not had any shortness of breath, chest pain, difficulty breathing, chest pressure, lightheadedness, dizziness, diaphoresis, or abdominal pain overnight. She is worried she will need zofran because she is normally nauseus ever since starting chemo, but does not feel nauseus right now. She is hungry. No other quesitons or concerns this morning. No fevers or chills overnight or after her RBC transfusion. No hives. Review of Systems Review of Systems: Constitutional: Denies fever, chills, malaise Eyes: Denies double vision, vision change, eye pain ENT: Denies ear pain, sore throat, sinus pain Cardiovascular: Denies Chest pain, chest pressure, palpitations, extremity swelling Respiratory: Denies shortness of breath, cough, sputum production, difficulty breathing Gastrointestinal: Denies abdominal pain, nausea, vomiting, constipation, diarrhea Genitourinary: Denies pain with urination, urinary urgency, urinary frequency Musculoskeletal: Denies weakness, muscle aches/pain, joint aches/pain Integumentary:Denies rash, lesions, bruising Neurological: Denies headache, numbness, tingling, focal weakness Physical Exam Physical Exam: General: A&Ox3. NAD. Cooperative.No rash. HEENT: Atraumatic, normocephalic. Pulm: CTAB A&P. -wheezes, -rales, -rhonchi. Symmetrical chest rise. No increase work of breathing. No respiratory distress. Cardiac: RRR, -mrg. Radial pulses intact and symmetrical. PT pulses intact and symmetrical. No JVD. Abdominal: Nontender, nondistended, soft. BS present. Extremities: Right forearm hematoma resolved. No appreciable ecchymosis at this time, nontender. Sensation intact in distal upper and lower extremities bilaterally. 5/5 strength to finger flexion, finger extension, regulation supervisor strength, elbow flexion, elbow extension, shoulder internal/external rotation, hip flexion, ankle plantar flexion/dorsiflexion bilaterally. Results & Data Vital Signs (Past 12 Hours) Vital Signs Temp Pulse Resp BP Pulse Ox 05/29/19 00:00 92 H 26 H 109/67 05/28/19 23:01 105 H 16 05/28/19 23:00 36.7 C 108 H 24 131/87 98 05/28/19 22:16 99 H 13 118/74 05/28/19 21:01 101 H 16 05/28/19 21:00 102 H 15 132/91 05/28/19 20:01 102 H 19 05/28/19 20:00 36.8 C 100 H 15 131/76 05/28/19 19:37 97 H 05/28/19 19:08 101 H 14 102/67 05/28/19 19:00 97 H 17 05/28/19 17:00 110 H 23 127/81 98 05/28/19 16:00 36.8 C 96 H 20 115/72 99 05/28/19 15:00 98 H 17 110/72 98 05/28/19 14:05 100 H 15 104/76 98 05/28/19 13:00 105 H 19 127/81 99 PG Care Time/CCT Total # of Minutes Spent Total Time Spent with Patient: Total time spent is greater than 50% in co ordination of care (as documented) at patient's floor/unit and/or counseling patient: Resident Activity Tracking Resident Involvement: Resident Care Provided Care Provided: Adult Hospital Medicine (1) ST elevation (STEMI) myocardial infarction Involved coronary artery: unspecified coronary artery Qualified Code(s): I21.3 - ST elevation (STEMI) myocardial infarction of unspecified site
[2019-05-29] MEDS ORDERED: ONDANSETRON 4 MG OD TAB ONE (07:37)
[2019-05-29] MEDS: MAGNESIUM OXIDE 400 MG TAB PO SCH ×2 (07:38→11:46)
[2019-05-29] MEDS: ONDANSETRON 4 MG OD TAB PO PRN ×2 (07:38→16:33)
[2019-05-29 07:42] LABS: Appearance Urine Clear (Clear); Bacteria Urine Automated Negative (Negative); Bilirubin Urine Negative (Negative); Blood Urine Negative (Negative); Cast Urine Automated 0 /lpf (0-5); Color Urine Yellow; Glucose Urine UA Negative (Negative); Ketones Urine Negative (Negative); Leukocyte Esterase Urine Trace (Negative); Nitrite Urine Negative (Negative); Protein Urine Negative (Negative); RBC Urine Automated 0-4 /hpf (0-4); Specific Gravity Urine 1.008 (1.000-1.030); Urobilinogen Urine Negative (Negative)
[2019-05-29] MEDS: ASPIRIN 81 MG ECTAB PO SCH (08:33)
[2019-05-29] MEDS: PANTOprazole 40 MG TAB PO SCH (08:33)
[2019-05-29] MEDS: ATORVASTATIN 40 MG TAB PO SCH (08:33)
[2019-05-29] MEDS ORDERED: MAGNESIUM OXIDE 400 MG TAB PO SCH (09:00)
[2019-05-29] MEDS: FOLIC ACID 1 MG TAB PO SCH (09:40)
[2019-05-29] MEDS: TICAGRELOR 90 MG TAB PO SCH ×2 (09:40→21:26)
[2019-05-29] MEDS: METOPROLOL SUCC 25MG EXT REL TAB PO SCH (09:41)
--- NOTE | 2019-05-29 15:03 | Cardiology Progress Note ---
Date of Service May 29, 2019 Assessment & Plan (1) STEMI (ST elevation myocardial infarction): The patient had 3 JOANNA placed in the LAD. There was a limited distal LAD dissection. Echocardiogram notes an ejection fraction of 30-35% with a large anteroapical wall motion abnormality. No left ventricular thrombus. Would continue Brilinta, aspirin, metoprolol succinate, and atorvastatin. (2) Left ventricular dysfunction: Moderate left ventricular dysfunction with ejection fraction of 30-35% and a large anteroapical wall motion abnormality. Would attempt at low-dose ACEI/ARB when blood pressure allows. (3) Hypercholesterolemia: Continue atorvastatin. Subjective The patient is resting comfortably in bed without complaints of chest pain or dyspnea. Physical Exam Physical Exam: In general this is a well-developed well-nourished white female in no acute distress. HEENT exam is negative. Neck is supple with full carotid upstrokes. There are no carotid bruits. Jugular venous pressure is flat at 90. There is no thyromegaly. Cardiovascular exam reveals a regular rhythm with a normal S1 and S2. No S3, S4, or murmurs are noted. Lungs note distant breath sounds.. Abdomen is soft and nontender without bruits. Extremities reveal intact radial artery and posterior tibial pulses bilaterally. There is no peripheral edema. Results & Data Vital Signs (Past 12 Hours) Vital Signs Temp Pulse Pulse Resp BP BP Pulse Ox 05/29/19 11:15 36.8 C 105 H 20 125/81 99 05/29/19 11:07 107 H 05/29/19 08:00 86 05/29/19 07:00 92 H 20 122/85 05/29/19 06:00 98 H 19 107/79 05/29/19 05:02 92 H 16 05/29/19 05:01 96 H 9 L 119/76 05/29/19 05:00 95 H 19 05/29/19 04:06 36.8 C 99 H 20 135/95 99 05/29/19 04:04 101 H 23 05/29/19 03:01 95 H 24 Diagnostic Findings computer repairer is benign. PG Care Time/CCT Total # of Minutes Spent Total Time Spent with Patient: Total time spent is greater than 50% in c oordination of care (as documented) at patient's floor/unit and/or counseling patient:
--- NOTE | 2019-05-29 16:46 | Hospitalist Progress Note ---
Date of Service May 29, 2019 Assessment & Plan (1) Admitted to intensive care unit: (2) STEMI (ST elevation myocardial infarction): Patient is a 63 yr female who has significant past medical history of non-small cell CA of right lung, HTN, HLD, CKD-3, GERD, asthma who presents to [facility] ED as heart alert. Anterior STEMI S/P Cardiac Cath: 100% mid LAD occlusion, severe multivessel non-culprit coronary artery disease Successful PCI of ostial to mid LAD with 3 overlapping drug-eluting stents Prolonged balloon angioplasty of relate-mid downstream LAD dissection Completed Integrilin infusion for 18 hours ECHO:EF 30-35%, large anteroapical wall motion abnrmality Appreciate Cardiology/Critical Care Input Continue aspirin, Brilinta, Metoprolol Consider ACEI when BP tolerates Transfuse PRBCs PRN Refused Lipitor due to prior Intolerance Prefers to be started on Rosuvastatin 10mg daily (3) Non-small cell cancer of right lung: Ongoing chemotherapy; last cycle was 1 week ago Follows with Dr. Carr as outpatient Discussed with Oncology on 05/29/19 Needs to reschedule upcoming Chemotherapy (4) HTN (hypertension): Amlodipine discontinued Continue Metoprolol Consider to start on ACEI if BP tolerates Monitor (5) Dyslipidemia, goal LDL below 130: Refused Lipitor (H/O Intolerance) Started on low dose Rosuvastatin (6) Anemia: Normocytic, normochromic Likely multifactorial--anemia of chronic disease, chemotherapy Monitor CBC (7) CKD (chronic kidney disease), stage III: Baseline cr 1.5 Monitor renal function Avoid Nephrotoxic agents as able (8) DVT prophylaxis: SCD/TEDS Disposition: Expect to discharge home when stable Follow up: PCP Dr. Alba upon discharge along with appropriate cardiology follow up Subjective Patient is seen and examined at bedside Doing well today Has been refusing Lipitor due to prior intolerance She is willing to try low dose Rosuvastatin Denies any chest pain, SOB, dizziness Family at bedside No other complaints Review of Systems Review of Systems: All systems reviewed & are unremarkable except as noted in HPI & below Physical Exam Physical Exam: Physical Exam: Vitals signs as noted above General Appearance:Moderately built and nourished, no apparent distress Head: normocephalic, Atraumatic Eyes: normal inspection, EOMI Neck: supple, Trachea midline Respiratory/Chest: Normal breath sounds, CTA, Chemo port on left side Cardiovascular: S1, S2, No murmur Abdomen/GI:Soft, Non tender, Bowel sounds present Extremities/Musculoskelatal:normal inspection, no edema Neurologic/Psych:AAOX3, grossly no focal neurological deficits Skin: normal color, warm Results & Data Vital Signs (Past 12 Hours) Vital Signs Temp Pulse Pulse Resp BP BP Pulse Ox 05/29/19 15:34 36.5 C 92 H 18 118/79 97 05/29/19 11:15 36.8 C 105 H 20 125/81 99 05/29/19 11:07 107 H 05/29/19 08:00 86 05/29/19 07:00 92 H 20 122/85 05/29/19 06:00 98 H 19 107/79 05/29/19 05:02 92 H 16 05/29/19 05:01 96 H 9 L 119/76 05/29/19 05:00 95 H 19 Laboratory Results Short CBC 05/28/19 05/29/19 Range/Units 20:04 03:53 WBC 7.71 (4.8-10.8) K/uL Hgb 9.0 L 9.3 L (12.0-16.0) g/dL Hct 26.2 L 27.9 L (37-47) % Plt Count 249 (130-400) K/uL BMP 05/29/19 03:53 Sodium 140 Potassium 3.9 Chloride 107 Carbon Dioxide 28 BUN 11 Creatinine 1.38 H Glucose 92 Calcium 8.6 Urine 05/29/19 Range/Units 07:30 Urine Color Yellow Urine Appearance Clear (Clear) Urine pH 8.0 H (4.5-7.5) Ur Specific [place] 1.008 (1.000-1.030) Urine Protein Negative (Negative) Urine Glucose (UA) Negative (Negative)
[2019-05-29] MEDS ORDERED: ROSUVASTATIN CALCIUM 10 MG TAB PO SCH (21:00)
[2019-05-30] MEDS: ONDANSETRON 4 MG OD TAB PO PRN (06:08)
[2019-05-30 07:48] LABS: Hematocrit (blood only) 26.5 % (37-47); Hemoglobin 8.8 g/dL (12.0-16.0); Mean Corpuscular Hemoglobin 30.7 pg (25-34); Mean Corpuscular Hgb Conc 33.2 g/dL (32-36); Mean Corpuscular Volume 92.3 fL (80-100); Mean Platelet Volume 8.7 fL (7.4-10.4); Platelet Count 264 K/uL (130-400); RDW Coefficient of Variation 17.5 % (11.5-14.5); Red Blood Count 2.87 M/uL (4.2-5.4); White Blood Count 6.86 K/uL (4.8-10.8)
[2019-05-30 08:10] LABS: Creatinine Clr Calc Pharmacy 39.7 ml/min; Est GFR (African American) 49.2; Est GFR (Non-African American) 42.4
[2019-05-30] MEDS: METOPROLOL SUCC 25MG EXT REL TAB PO SCH (08:14)
[2019-05-30] MEDS: PANTOprazole 40 MG TAB PO SCH (08:14)
[2019-05-30] MEDS: ASPIRIN 81 MG ECTAB PO SCH (08:15)
[2019-05-30] MEDS: FOLIC ACID 1 MG TAB PO SCH (08:15)
[2019-05-30] MEDS: TICAGRELOR 90 MG TAB PO SCH (08:57)
--- NOTE | 2019-05-30 12:45 | Hospitalist Progress Note ---
Date of Service May 30, 2019 Assessment & Plan (1) Admitted to intensive care unit: (2) STEMI (ST elevation myocardial infarction): Patient is a 63 yr female who has significant past medical history of non-small cell CA of right lung, HTN, HLD, CKD-3, GERD, asthma who presents to [facility] ED as heart alert. Anterior STEMI S/P Cardiac Cath: 100% mid LAD occlusion, severe multivessel non-culprit coronary artery disease Successful PCI of ostial to mid LAD with 3 overlapping drug-eluting stents Prolonged balloon angioplasty of relate-mid downstream LAD dissection Completed Integrilin infusion for 18 hours ECHO:EF 30-35%, large anteroapical wall motion abnormality Appreciate Cardiology/Critical Care Input Continue aspirin, Brilinta, Metoprolol Consider ACEI when BP tolerates Transfuse PRBCs PRN Refused Lipitor due to prior Intolerance Initially Preferred to be started on Rosuvastatin 10mg daily---but refused again Prefers not to be started on any statins. Needs follow up with Cardiology upon discharge (3) Non-small cell cancer of right lung: Ongoing chemotherapy; last cycle was 1 week ago Follows with Dr. Carr as outpatient Discussed with Oncology on 05/29/19 Needs to reschedule upcoming Chemotherapy (4) HTN (hypertension): Amlodipine discontinued Continue Metoprolol Consider to start on ACEI if BP tolerates Monitor (5) Dyslipidemia, goal LDL below 130: Refused Lipitor (H/O Intolerance) Started on low dose Rosuvastatin--Patient Refused (6) Anemia: Normocytic, normochromic Likely multifactorial--anemia of chronic disease, chemotherapy Monitor CBC (7) CKD (chronic kidney disease), stage III: Baseline cr 1.5 Monitor renal function Avoid Nephrotoxic agents as able (8) DVT prophylaxis: SCD/TEDS Disposition: Plan to discharge home today Follow up: PCP Dr. Alba upon discharge along with appropriate cardiology follow up Subjective Patient is seen and examined at bedside Denies any chest pain, SOB, dizziness No new complaints Discussed with Cardiology today Patient continues to refuse any statins despite explaining in detail Plan to discharge home today Review of Systems Review of Systems: All systems reviewed & are unremarkable except as noted in HPI & below Physical Exam Physical Exam: Physical Exam: Vitals signs as noted above General Appearance:Moderately built and nourished, no apparent distress Head: normocephalic, Atraumatic Eyes: normal inspection, EOMI Neck: supple, Trachea midline Respiratory/Chest: Normal breath sounds, CTA, Chemo port on left side Cardiovascular: S1, S2, No murmur Abdomen/GI:Soft, Non tender, Bowel sounds present Extremities/Musculoskelatal:normal inspection, no edema Neurologic/Psych:AAOX3, grossly no focal neurological deficits Skin: normal color, warm Results & Data Vital Signs (Past 12 Hours) Vital Signs Temp Pulse Pulse Resp BP Pulse Ox 05/30/19 11:58 36.4 C L 96 H 18 135/89 98 05/30/19 08:00 98 H 05/30/19 07:13 36.7 C 105 H 18 126/88 97 05/30/19 03:24 36.5 C 104 H 19 123/81 99 Laboratory Results Short CBC 05/30/19 Range/Units 07:37 WBC 6.86 (4.8-10.8) K/uL Hgb 8.8 L (12.0-16.0) g/dL Hct 26.5 L (37-47) % Plt Count 264 (130-400) K/uL BMP 05/30/19 07:37 Creatinine 1.33 H
--- NOTE | 2019-05-30 12:52 | Discharge Summary ---
Date of Service May 30, 2019 Admission HPI Per Admitting Provider This is a 63-year-old female who has significant past medical history of non- small cell CA of right lung, HTN, HLD, CKD-3, GERD, asthma who presents to [facility] ED as heart alert. Of significance patient has recent diagnosis of non-small cell CA of right lung, biopsy 12/2018. Currently receiving chemotherapy, last treatment 1 week ago. 2 hours prior to arrival patient was sitting down eating when she developed severe substernal chest pain radiated to bilateral arms, associated diaphoresis, palpitations, nausea. "I understand CPR, but I couldn't understand what was going on because it was going to both arms." Heart alert was called and patient was found to have acute anterior STEMI in ED. Pt was evaluated by Dr. Malin and taken to salvage lab[facility]. Patient was found to have moderate LAD occlusion with calcification which required patient to have 3 total stents placed in LAD. Also noted was a [id number] dissection that was not amenable to PCI. Patient was chest pain-free postprocedure and loaded with Brilinta. She was transferred to ICU and we have been consulted for medical management. Currently she denies any chest pain, lightheadedness, dizziness, fever, chills, sweats, shortness of breath, nausea, vomiting, abdominal pain. She overall feels very anxious about entire event and becomes very tearful when talking about it. Prior to arrival today she has been having a good appetite, trying to maintain 2000cal/day diet along with maintaining good hydration. States that for the past week she has been having significantly elevated blood pressure during chemo and for the past week. Has almost been forgetting to take her amlodipine. Admission Exam Per Admitting Provider Physical Exam Physical Exam: Constitutional: WD/WN, vitals as above, NAD, sitting up in bed, pleasant, conversing easily Head: Normocephalic, Atraumatic Eyes: PERRL, conjunctivae normal, anicteric sclerae ENMT: external ear and nose normal, oropharynx normal Neck: trachea midline, no thyromegaly normal visual inspection Respiratory: normal respiratory effort, lungs clear to auscultation, no wheeze, rales, rhonchi. Normal insp/exp effort, no accessory muscle use Cardiovascular: tachycardic rate, regular rhythm, no murmur, no edema Vessels: pulsating JVD or carotid bruit Chest: normal inspection of chest Abdomen: normal bowel sounds, soft, nontender, no hepatosplenomegaly Musculoskeletal: no cyanosis or clubbing, extremities motor strength 5/5 Skin: no rashes, warm and dry normal turgor Neurologic: PERRL, EOMI, accommodation nl, no face palsy, no dysarthria CN's II-XI intact bilaterally and moves all extremities Psychiatric: A+Ox3, very anxious, affect : deferred Principal Diagnosis Discharge Information Discharge Diagnosis Acute myocardial infarction Discharge Goals Decrease discomfort,Improve disease control, Improve function Discharge Activity Limitations Per instructions/follow-up Discharge Data Allergies Allergy/AdvReac Type Severity Reaction Status Date / Time barley Allergy Intermediate INDIGESTION/GI Verified 12/28/18 11:43 SYMPTOMS chocolate flavor Allergy Intermediate HEADACHES Verified 12/28/18 11:43 WITH LARGE QUANTITIES horse dander Allergy Intermediate ITCHING Verified 12/28/18 11:43 mold Allergy Intermediate ITCHING/DIFFICULT Verified 12/28/18 11:43 BREATHING Penicillins Allergy Intermediate Hives Verified 12/28/18 11:43 cheese AdvReac Intermediate CONSTIPATION/GI Verified 12/28/18 11:43 SYMPTOMS Consultations 05/27/19 15:08 ED Decision to Admit Stat 05/27/19 15:09 Consult Band Booker Routine 05/27/19 16:44 Consult Cardiac Rehabilitation Routine Consult Case Management - Discharge Planning Routine Consult Band Booker Routine Procedures Performed Operation Date: 05/27/19 14:00 Actual Procedures p Cath, Left with Cors and Vent - Eladio Malin MD s Aspiration/PCI w/JOANNA for Stemi - Eladio Malin MD s Cineradiography w/Routine Exam - Eladio Malin MD CXR: 1. Interval development of subsegmental atelectasis versus focal infiltrative change medial right base. 2. Improving pulmonary nodularity. Ordered Studies 05/27/19 14:02 CL Cath Imgs for PACS use only Stat Hospital Course (1) Admitted to intensive care unit: (2) STEMI (ST elevation myocardial infarction): Patient is a 63 yr female who has significant past medical history of non-small cell CA of right lung, HTN, HLD, CKD-3, GERD, asthma who presents to [facility] ED as heart alert. Anterior STEMI S/P Cardiac Cath: 100% mid LAD occlusion, severe multivessel non-culprit coronary artery disease Successful PCI of ostial to mid LAD with 3 overlapping drug-eluting stents Prolonged balloon angioplasty of relate-mid downstream LAD dissection Completed Integrilin infusion for 18 hours ECHO:EF 30-35%, large anteroapical wall motion abnormality Appreciate Cardiology/Critical Care Input Continue aspirin, Brilinta, Metoprolol Consider ACEI when BP tolerates Transfuse PRBCs PRN Refused Lipitor due to prior Intolerance Initially Preferred to be started on Rosuvastatin 10mg daily---but refused again Prefers not to be started on any statins. Needs follow up with Cardiology upon discharge (3) Non-small cell cancer of right lung: Ongoing chemotherapy; last cycle was 1 week ago Follows with Dr. Carr as outpatient Discussed with Oncology on 05/29/19 Needs to reschedule upcoming Chemotherapy (4) HTN (hypertension): Amlodipine discontinued Continue Metoprolol Consider to start on ACEI if BP tolerates Monitor (5) Dyslipidemia, goal LDL below 130: Refused Lipitor (H/O Intolerance) Started on low dose Rosuvastatin--Patient Refused (6) Anemia: Normocytic, normochromic Likely multifactorial--anemia of chronic disease, chemotherapy Monitor CBC (7) CKD (chronic kidney disease), stage III: Baseline cr 1.5 Monitor renal function Avoid Nephrotoxic agents as able (8) DVT prophylaxis: SCD/TEDS Disposition: Plan to discharge home today Follow up: PCP Dr. Alba upon discharge along with appropriate cardiology follow up Total Time Total Time Spent Total Time Spent (In Minutes): 39 minutes Total Time Includes: Examination of the Patient, Discharge Planning, Medication Reconciliation, Communication With Other Providers and Other Discharge Plan Discharge Items Patient Disposition: Home - Self-Care Reason For Visit: HEART ALERT, POST PCI Discharge Diagnosis: Acute myocardial infarction Discharge Goals: Decrease discomfort, Improve disease control and Improve function Activity: Per 'Additional Instructions' section Lifting: Wait until after follow-up appointment Exercise/Sports: Wait until after follow-up appointment Non-emergency contact: Primary Care Provider and Senior Search Marketing Analyst Call non-emergency contact if: you have any medication questions, your symptoms worsen, your pain is not controlled, your pain is worsening, your pain is unusual for you, your pain is concerning for you, you have a fever, your wound has increased redness, your wound has increased drainage and your wound pain has increased Follow-up/Referrals: Kae Alba MD [Primary Care Provider] - Diet: Heart Healthy Add Provider Instructions: Follow-up with your primary care physician Dr. Alba in 1 week Follow-up with your hot dog vendor Dr. Jostin Malin in 2 to 3 weeks as advised Seek immediate medical attention if your symptoms reoccur or worsen ACTIVITY RECOMMENDATIONS: Excess manipulation of the wrist should be avoided for the next 24-48 hours. * No lifting over 2 pounds (approximately a 1/2 gallon of milk) with the utilized arm for 24 hours. * No strenuous activity such as bowling or tennis for 3 days. * Keep the site of the procedure covered with a bandage for 24 hours. *You may shower the day after the procedure. Do not take a tub bath or submerge the puncture site in water for the next 3 days. *Do not operate any motorized equipment for 3 days. SPECIAL CARE INSTRUCTIONS: The site may be slightly bruised and sore following your procedure. Should any of the following occur, contact the Dr. who performed your procedure. 1. Redness/inflammation, swelling, chills, or fever, or colored drainage at procedure site within 3-7 days after your procedure. 2. Coldness, discoloration, ongoing numbness, severe pain, or swelling. Expect mild tingling of hand and tenderness at the puncture site for up to three days. If this persists beyond three days, or other symptoms develop, notify the Dr. who performed your procedure. BLEEDING: If the procedure site on your wrist begins to bleed, do not panic 1. Place 1 or 2 fingers firmly just slightly above the insertion site to stop the bleeding. You may be able to feel your pulse as you hold pressure. 2. Lift your finger after 5 minutes to see if the bleeding has stopped. 3. Once the bleeding has stopped, gently wipe the wrist area clean with a bandage. * If the bleeding from your wrist does not stop after 10 minutes, or if there is a large amount of bleeding or spurting, call 911 (do not drive yourself to the hospital). SKIN IRRITATION: * You may experience some redness and/or swelling in the area where radiation was administered. If any skin irritation occurs, please contact your family physician. FOLLOW UP VISIT: Keep any scheduled doctor appointments. Home Care: * Take your medications exactly as directed. Don't skip doses. * Remember that recovery after a heart attack takes time. Plan to rest for at lease 4-8 weeks while you recover. Then return to normal activity when your doctor says it's okay. * Ask your doctor about joining a heart rehabilitation program. * Tell your doctor if you are feeling depressed. Feelings of sadness are common after a heart attack, but it is important that you speak to someone if you are feeling overwhelmed by these feelings. * If you are having chest pain, call 911 for an ambulance. Do NOT drive yourself to the hospital. * Ask your family members to learn CPR. * Learn to take your own blood pressure and pulse. Keep a record of your results. Ask your doctor when you should seek emergency medical attention. He or she will tell you which blood pressure reading is dangerous. Lifestyle Changes: * Maintain a healthy weight. Get help to lose any extra pounds. * Cut back on salt. * Limit canned, dried, packaged, and fast foods. * Don't add salt to your food. * Season foods with herbs instead of salt when you cook. * Break the smoking habit. Enroll in a stop-smoking program to improve your chances of success. * Limit fatty foods. * Ask your doctor about having your lipid levels checked regularly. * Build up your activity according to your doctor's recommendation. * Ask your doctor when it's okay to resume sexual activity. * Tell your doctor about any erectile dysfunction (ED) medication you are taking. Some ED medications are not safe if you take certain heart medications. * Try to manage stress. Follow Up: It is important for you to keep your follow up appointments with your medical provider. Prescriptions: New aspirin [Ecotrin Low Strength] 81 mg Tablet,Delayed Release (Dr/Ec) 81 mg PO QAM Qty: 30 RF: 1 metoprolol succinate 25 mg Tablet Extended Release 24 Hr 25 mg PO QAM 30 Days Qty: 30 RF: 1 Brilinta 90 mg Tablet 90 mg PO BID 30 Days Qty: 60 RF: 1 pantoprazole 40 mg Tablet,Delayed Release (Dr/Ec) 40 mg PO QAM 30 Days Qty: 30 RF: 0 folic acid 1 mg Tablet 1 mg PO QAM 30 Days Qty: 30 RF: 0 rosuvastatin 20 mg tablet 20 mg PO DAILY Qty: 30 RF: 1 lisinopril 5 mg tablet 5 mg PO DAILY Qty: 30 RF: 1 Continued albuterol sulfate [ProAir HFA] 90 mcg/actuation Hfa Aerosol Inhaler 2 puff INHALATION Q6H PRN (Reason: Wheezing) RF: 0 ondansetron HCl 8 mg tablet 8 mg PO Q8H PRN (Reason: Nausea) RF: 0 prochlorperazine maleate 5 mg Tablet 5 mg PO Q6H PRN (Reason: Nausea) RF: 0 Discontinued amlodipine 2.5 mg tablet 2.5 mg PO DAILY RF: 0 Stand-Alone Forms: Call Back Authorization, [facility] Discharge Orders: Discharge Order (Routine); Ordered 05/30/19 Ordered By: Raudel Meyers Admission Data Admit Date/Time: 05/27/19 15:08 Attending Provider: Raudel Meyers Admit Provider: Eladio Malin Primary Care Provider: Kae Alba Other Providers: Soco Thakkar ; Bola Sierra Service: Telemetry Other Interventions: Discharge Summary Assessment (RN) Last Done: 05/30/19 12:58 Pending Studies at Discharge: No DC Date/Time DO NOT enter until pt leaves facility: 05/30/19 15:00
[2019-05-30] MEDS ORDERED: HEPARIN 100 UNIT/ML 5ML FLUSH ONE (13:20)
--- NOTE | 2019-05-30 13:48 | Cardiology Progress Note ---
Date of Service May 30, 2019 Assessment & Plan (1) STEMI (ST elevation myocardial infarction): The patient had 3 JOANNA placed in the LAD at the time of her presentation. There was a small distal LAD dissection. Echocardiogram notes an ejection fraction of 30-35% with a large anteroapical wall motion abnormality without thrombus. Would continue Brilinta, aspirin, metoprolol succinate, and atorvastatin. (2) Left ventricular dysfunction: Moderate LV dysfunction with ejection fraction of 30-35% and a large anteroapical wall motion abnormality. Would attempt at low-dose ACEI/ARB when blood pressure allows. (3) Hypercholesterolemia: Continue rosuvastatin. Subjective The patient is resting comfortably bedside chair without complaints of chest pain or dyspnea. She is anxious for hospital discharge. Physical Exam Physical Exam: In general this is a well-developed well-nourished white female in no acute distress. HEENT exam is negative. Neck is supple with full carotid upstrokes. There are no carotid bruits. Jugular venous pressure is flat at 90. There is no thyromegaly. Cardiovascular exam reveals a regular rhythm with a normal S1 and S2. No S3, S4, or murmurs are noted. Lungs note distant breath sounds.. Abdomen is soft and nontender without bruits. Extremities reveal intact radial artery and posterior tibial pulses bilaterally. There is no peripheral edema. Results & Data Vital Signs (Past 12 Hours) Vital Signs Temp Pulse Pulse Resp BP BP Pulse Ox 05/30/19 12:58 36.4 C L 96 H 18 135/89 131/83 98 05/30/19 11:58 36.4 C L 96 H 18 135/89 98 05/30/19 08:00 98 H 05/30/19 07:13 36.7 C 105 H 18 126/88 97 05/30/19 03:24 36.5 C 104 H 19 123/81 99 Diagnostic Findings surveillance monitor is benign. PG Care Time/CCT Total # of Minutes Spent Total Time Spent with Patient: Total time spent is greater than 50% in coordination of care (as documented) at patient's floor/unit and/or counseling patient:
== END 2019-05-30 15:00 | disposition home or self-care (01) | DRG 247 ==
LOC: ED 13:48 → CC 14:09 → 1E 14:09 → SUATTDRO 15:08 → 1E 15:08 → 2S 05-29 11:03

== ENCOUNTER 2022-01-17 14:12 | Inpatient (IN) ==
--- NOTE | 2022-01-17 14:50 | Emergency Department Note ---
Impression & Plan Hypoxia ADMIT ED Provider Note HPI: The patient is a 66-year-old female with history of coronary artery disease, chronic kidney disease, non-small cell cancer of the right lung, currently on a break from chemotherapy, presents the emergency department with a chief compl aint of shortness of breath. Patient states that she did not feel well today, she had a pulmonology appointment as an outpatient, states that she canceled this appointment secondary to not feeling well and feeling short of breath, she was advised when she called to cancel the appointment to come to the emergency room for further assessment. Patient tells me she does not wear supplemental oxygen at baseline, she is noted to be saturating at 86% on room air on arrival and therefore was placed on nasal cannula oxygen with good improvement. Patient is in no acute distress on my initial evaluation, she does not display any increased work of breathing now on nasal cannula oxygen. She denies any chest pain. ROS: -Pulmonary: Shortness of breath. *10 point review systems was conducted and is otherwise negative unless stated above *Outpatient medications and allergy history reviewed PE: General: Alert, frail-appearing, cachectic, no acute distress HEENT: Normocephalic, atraumatic Eyes: Extraocular eye movement is intact, no scleral erythema Pulmonary: Diminished breath sounds on the right side, no wheezing Cardio: Regular rate and rhythm GI: Abdomen is soft, nontender : No suprapubic tenderness MSK: No evidence of trauma or malformation of the extremities, no edema Skin: No evidence of rash Neuro: Alert, no focal deficits Psychiatric: Cooperative monitoring tech: - An order was placed for continuous cardiac monitoring - Patient was noted to be in sinus rhythm with rate of 90 EKG: Rate: 92 Rhythm: Normal sinus rhythm Intervals: Within normal limits ST changes: No ST elevation Time: 1515 Medical Decision Making: The patient is a 66-year-old female with history of lung cancer, presents the emergency department with increasing shortness of breath. She was noted to be hypoxic in triage, she was placed on nasal cannula oxygen with good improvement. Here in the ED IV was established, lab work obtained, patient was placed on the monitoring manager. She remained stable on nasal cannula oxygen following placement. Lab work shows stable anemia, no leukocytosis, there is a thrombocytosis. No acute kidney injury. High-sensitivity troponin is negative x1. Patient denies any chest pain. CT angiography of the chest shows evidence of a large right-sided pleural effusion encompassing approximately 80% of the thoracic space. I discussed the above findings with on-call pulmonology, Dr. Gavin, who is in agreement for consultation, given the patient's hemodynamic stability at this time and rapid improvement with nasal cannula oxygen, lack of any i ncreased work of breathing on my exam, she is felt to be stable to have this thoracentesis done tomorrow morning for routine consultation. Patient is in agreement to this. Patient has previously refused thoracentesis in the past at [facility] according to the admission team, at this time she is in agreement to have this procedure done. Case was discussed with the on-call midlevel provider for [facility], Kate Jessica, patient was admitted in stable condition for further care. Critical care time: 46 minutes: -Stabilization of hypoxia with oxygen saturations less than 90% on room air requiring supplemental oxygen for improvement, time spent at the bedside, interpretation of diagnostic studies, discussion with other healthcare providers and arrangement of admission Diagnosis: 1. Hypoxia, acute 2. Right-sided pleural effusion, malignant 3. History of non-small cell cancer of the lung Disposition: Admission Juan Jose Abrams DO Emergency Medicine Past Med/Surg History Medical History (Updated 05/28/19 @ 16:50 by Hamzah Devi MD) Allergic rhinitis Asthma HAS NOT USED INHALER SINCE PRESCRIBED Chronic cough Dyslipidemia, goal LDL below 130 GERD (gastroesophageal reflux disease) Herpes simplex viral infection Mediastinal adenopathy Migraine HX OF 2009 Non-small cell cancer of right lung Pulmonary nodules TMJ (temporomandibular joint disorder) Surgical History History of 1973 History of tooth extraction Family History Mother Family history of diabetes mellitus Heart disease Father Coronary heart disease Social History (Updated 05/27/19 @ 17:21 by Kate Ellison PA-C) Smoking Status: Never smoker Second Hand Exposure: No; Hx Alcohol Use: No Hx Substance Use: No Preferred Language: French Communication Ability: Effective Professor Of Communication And Writing Required: No Beliefs That Will Affect Care: None marital status: Current Living Situation: Spouse Feels Safe at Home: Yes Assistive Devices: None Allergies Allergies Allergy/AdvReac Type Severity Reaction Status Date / Time barley Allergy Intermediate INDIGESTION/GI Verified 01/17/22 15:30 SYMPTOMS chocolate flavor Allergy Intermediate HEADACHES Verified 01/17/22 15:30 WITH LARGE QUANTITIES horse dander Allergy Intermediate ITCHING Verified 01/17/22 15:30 mold Allergy Intermediate ITCHING/DIFFICULT Verified 01/17/22 15:30 BREATHING Penicillins Allergy Intermediate Hives Verified 01/17/22 15:30 cheese AdvReac Intermediate CONSTIPATION/GI Verified 01/17/22 15:30 SYMPTOMS Home Meds Home Medications Medication Instructions Recorded Confirmed ondansetron HCl 8 mg tablet 8 mg PO Q8H PRN 05/27/19 01/17/22 amlodipine 5 mg tablet 5 mg PO DAILY 01/17/22 01/17/22 cetirizine 10 mg tablet (Zyrtec) 10 mg PO DAILY 01/17/22 01/17/22 clopidogrel 75 mg tablet 75 mg PO DAILY 01/17/22 01/17/22 folic acid 1 mg tablet 1 mg PO DAILY 01/17/22 01/17/22 furosemide 20 mg tablet 20 mg PO DAILY 01/17/22 01/17/22 metoprolol succinate 100 mg 100 mg PO DAILY 01/17/22 01/17/22 tablet,extended release 24 hr Previous Rx's Medication Instructions Recorded aspirin 81 mg tablet,delayed 81 mg PO QAM #30 tab 05/30/19 release (Ecotrin Low Strength) Results & Data (ED) Vital Signs Vital Signs - 24 hr 01/17/22 14:18 01/17/22 14:33 01/17/22 14:40 Temperature 36.3 C L Temperature Source Oral Pulse Rate 98 H 93 H 93 H Pulse Rate [Left Radial] Pulse Rate from SpO2 Sensor 96 H Respiratory Rate 20 29 H 25 H Respiratory Effort / Characteristics Respiratory Depth Blood Pressure 101/67 Blood Pressure Mean 78 Pulse Oximetry 86 L 89 L Oxygen Delivery Method Room Air Oxygen Flow Rate Sepsis Recent Fever Within 48 Hours No Sepsis New/Unexplained Change in Mental Status No Sepsis Action Taken by Nursing No Action Required 01/17/22 14:50 01/17/22 15:00 01/17/22 15:10 Temperature Temperature Source Pulse Rate 90 89 90 Pulse Rate [Left Radial] Pulse Rate from SpO2 Sensor 98 H 89 88 Respiratory Rate 30 H 30 H 29 H Respiratory Effort / Characteristics Respiratory Depth Blood Pressure Blood Pressure Mean Pulse Oximetry 83 L 94 94 Oxygen Delivery Method Oxygen Flow Rate Sepsis Recent Fever Within 48 Hours Sepsis New/Unexplained Change in Mental Status Sepsis Action Taken by Nursing 01/17/22 15:20 01/17/22 15:24 01/17/22 15:30 Temperature Temperature Source Pulse Rate 92 H 95 H Pulse Rate [Left Radial] 93 H Pulse Rate from SpO2 Sensor 92 H Respiratory Rate 32 H 22 28 H Respiratory Effort / Characteristics Non-Labored Respiratory Depth Normal Blood Pressure Blood Pressure Mean Pulse Oximetry 92 94 Oxygen Delivery Method Nasal Cannula Oxygen Flow Rate Sepsis Recent Fever Within 48 Hours Sepsis New/Unexplained Change in Mental Status Sepsis Action Taken by Nursing 01/17/22 15:31 01/17/22 15:40 01/17/22 16:03 Temperature Temperature Source Pulse Rate 93 H 93 H 85 Pulse Rate [Left Radial] Pulse Rate from SpO2 Sensor 93 H Respiratory Rate 31 H 35 H 4 L Respiratory Effort / Characteristics Respiratory Depth Blood Pressure 102/77 Blood Pressure Mean 85 Pulse Oximetry 71 L Oxygen Delivery Method Oxygen Flow Rate Sepsis Recent Fever Within 48 Hours Sepsis New/Unexplained Change in Mental Status Sepsis Action Taken by Nursing 01/17/22 16:10 01/17/22 16:20 01/17/22 16:30 Temperature Temperature Source Pulse Rate 86 86 86 Pulse Rate [Left Radial] Pulse Rate from SpO2 Sensor 86 84 87 Respiratory Rate 29 H 31 H 32 H Respiratory Effort / Characteristics Respiratory Depth Blood Pressure 103/74 Blood Pressure Mean 83 Pulse Oximetry 88 L 80 L 93 Oxygen Delivery Method Oxygen Flow Rate Sepsis Recent Fever Within 48 Hours Sepsis New/Unexplained Change in Mental Status Sepsis Action Taken by Nursing 01/17/22 17:00 Temperature Temperature Source Pulse Rate Pulse Rate [Left Radial] Pulse Rate from SpO2 Sensor Respiratory Rate 20 Respiratory Effort / Characteristics Non-Labored Respiratory Depth Normal Blood Pressure Blood Pressure Mean Pulse Oximetry 95 Oxygen Delivery Method Nasal Cannula Oxygen Flow Rate 2 Sepsis Recent Fever Within 48 Hours Sepsis New/Unexplained Change in Mental Status Sepsis Action Taken by Nursing Laboratory Data Result diagrams: 01/17/22 14:44 01/17/22 14:44 Lab Results 01/17/22 01/17/22 01/17/22 Range/Units 14:44 14:44 14:44 WBC 10.00 (4.8-10.8) K/uL RBC 4.01 L (4.2-5.4) M/uL Hgb 9.9 L (12.0-16.0) g/dL Hct 32.3 L (37-47) % MCV 80.5 (80-100) fL MCH 24.7 L (25-34) pg MCHC 30.7 L (32-36) g/dL RDW Std Deviation 50.1 H (36.4-46.3) fL RDW Coeff of Azael 17.0 H (11.5-14.5) % Plt Count 539 H (130-400) K/uL MPV 8.4 (7.4-10.4) fL Immature Gran % (Auto) 0.3 % Neut % (Auto) 69.9 % Lymph % (Auto) 20.4 % Sunflower % (Auto) 6.9 % Eos % (Auto) 2.3 % Baso % (Auto) 0.2 % Neut # (Auto) 6.99 H (1.4-6.5) K/uL Lymph # (Auto) 2.04 (1.2-3.4) K/uL Sunflower # (Auto) 0.69 H (0.11-0.59) K/uL Eos # (Auto) 0.23 (0-0.5) K/uL Baso # (Auto) 0.02 (0-0.2) K/uL Immature Gran # (Auto) 0.03 H (0.00-0.02) K/uL PT 11.1 (9.0-12.0) Seconds INR 1.0 (0.9-1.1) APTT 30.3 (21.0-31.0) Seconds PTT Ratio 1.1 VBG pH (7.36-7.41) VBG pCO2 (38-50) mmHg VBG pO2 mmHg VBG HCO3 mmol/L VBG O2 Saturation % VBG Base Excess mEq/L Barometric Pressure mm/Hg Sodium 127 L (136-145) mmol/L Potassium 4.4 (3.5-5.1) mmol/L Chloride 94 L (98-107) mmol/L Carbon Dioxide 25 (21-32) mmol/L Anion Gap 8 (3-11) BUN 14 (6-23) mg/dl Creatinine 1.03 (0.6-1.2) mg/dl Est Cr Clr Drug Dosing Not Reportable Est GFR ( Amer) 65.6 ml/min Est GFR (Non-Af Amer) 56.6 ml/min BUN/Creatinine Ratio 13.6 (10-20) Glucose 98 (70-99(Fasting)) mg/dl Calcium 8.8 (8.5-10.1) mg/dl Total Bilirubin 0.5 (0.2-1.0) mg/dl AST 14 (13-39) U/L ALT 4 L (7-52) U/L Alkaline Phosphatase 86 (34-104) U/L Troponin I High Sens 3.9 (0-14) pg/ml Total Protein 6.6 (6.0-8.3) gm/dl Albumin 3.5 (3.4-5.0) gm/dl Globulin 3.1 (2.5-4.0) gm/dl Albumin/Globulin Ratio 1.1 (0.9-2) SARS-CoV-2, RNA, NAAT (NEGATIVE) 01/17/22 01/17/22 01/17/22 Range/Units 14:48 15:22 17:00 WBC (4.8-10.8) K/uL RBC (4.2-5.4) M/uL Hgb (12.0-16.0) g/dL Hct (37-47) % MCV (80-100) fL MCH (25-34) pg MCHC (32-36) g/dL RDW Std Deviation (36.4-46.3) fL RDW Coeff of Azael (11.5-14.5) % Plt Count (130-400) K/uL MPV (7.4-10.4) fL Immature Gran % (Auto) % Neut % (Auto) % Lymph % (Auto) % Sunflower % (Auto) % Eos % (Auto) % Baso % (Auto) % Neut # (Auto) (1.4-6.5) K/uL Lymph # (Auto) (1.2-3.4) K/uL Sunflower # (Auto) (0.11-0.59) K/uL Eos # (Auto) (0-0.5) K/uL Baso # (Auto) (0-0.2) K/uL Immature Gran # (Auto) (0.00-0.02) K/uL PT (9.0-12.0) Seconds INR (0.9-1.1) APTT (21.0-31.0) Seconds PTT Ratio VBG pH 7.45 H (7.36-7.41) VBG pCO2 37 L (38-50) mmHg VBG pO2 19 mmHg VBG HCO3 25 mmol/L VBG O2 Saturation < 60.0 % VBG Base Excess 1.6 mEq/L Barometric Pressure 741.4 mm/Hg Sodium (136-145) mmol/L Potassium (3.5-5.1) mmol/L Chloride (98-107) mmol/L Carbon Dioxide (21-32) mmol/L Anion Gap (3-11) BUN (6-23) mg/dl Creatinine (0.6-1.2) mg/dl Est Cr Clr Drug Dosing Est GFR ( Amer) ml/min Est GFR (Non-Af Amer) ml/min BUN/Creatinine Ratio (10-20) Glucose (70-99(Fasting)) mg/dl Calcium (8.5-10.1) mg/dl Total Bilirubin (0.2-1.0) mg/dl AST (13-39) U/L ALT (7-52) U/L Alkaline Phosphatase (34-104) U/L Troponin I High Sens 5.2 (0-14) pg/ml Total Protein (6.0-8.3) gm/dl Albumin (3.4-5.0) gm/dl Globulin (2.5-4.0) gm/dl Albumin/Globulin Ratio (0.9-2) SARS-CoV-2, RNA, NAAT NEGATIVE (NEGATIVE) Administered Medications Discontinued Medications Ioversol (Optiray 320 125ml) 95 ml IV ONCE ONE Stop: 01/17/22 16:02 Last Admin: 01/17/22 16:02 Dose: 95 ml Documented by: [id number] Imaging Data Radiologist's Impression: Chest CTA 01/17/22 14:47 CT ANGIOGRAPHY OF THE CHEST, PULMONARY EMBOLUS PROTOCOL CLINICAL HISTORY: Dyspnea. Non-small cell lung cancer. COMPARISON STUDY: PET/CT December 20, 2018. Chest radiograph May 27, 2019. Chest CT December 02, 2018. TECHNIQUE: Following IV administration of 95 mL of Optiray, helical axial images of the chest were obtained utilizing the pulmonary embolus protocol. Maximal intensity projections and sagittal and coronal reformats were viewed on an independent 3D workstation. IV contrast was administered without complication. Automated exposure control was utilized for the study. A dose lowering technique was utilized adhering to the principles of ALARA. CT DOSE: 234.17 mGy.cm FINDINGS: Left subclavian [id number] is in place. Note is made of small filling defects within two subsegmental pulmonary arteries within the left lower lobe shown on axial image 91 of 278 and 95 of 278. No additional filling defects are identified. Right lower lobe pulmonary arteries are compressed by adjacent mass. There is no central pulmonary embolus. Size of the heart is normal. Extensive coronary artery calcification is present. There is a small pericardial effusion. Note is made of a large right pleural effusion which occupies 80% of the right hemithorax. Right lung aeration is markedly diminished. Multiple right pleural enhancing masses are present consistent with a malignant effusion. Small left pleural effusion is present. Multiple coalescent masses and innumerable pulmonary nodules within the lungs are noted. The largest is within the right lung, measuring approximately 5.6 cm. This represents extensive metastatic disease. There is no pneumothorax. Mildly enlarged right supraclavicular lymph node measures 1.5 x 1 cm. Mildly enlarged right paratracheal lymph node measures 1.4 x 0.9 cm. Adenopathy has decreased since exam of December 20, 2018. The size of the pulmonary masses has increased. No suspicious lesions within the bony fragments. Visualized portions of the upper abdomen are unremarkable. IMPRESSION: 1. Small filling defects within two subsegmental pulmonary arteries within the left lower lobe. These favor small pulmonary emboli although invasion by adjacent tumor could appear similar. 2. Large malignant right pleural effusion which occupies 80% of the right h emithorax with significant decrease in right lung aeration and associated mass effect with leftward mediastinal displacement. Small left pleural effusion. Small pericardial effusion. 3. Multiple coalescent masses and innumerable pulmonary nodules within the lungs suggestive of extensive metastatic disease. 4. Mild right supraclavicular mediastinal lymphadenopathy. ACT 112: Negative or not required by law. Electronically signed by: Dwain Rodriguez M.D. 01/17/2022 4:22 PM Discharge Plan Visit Data Chief Complaint: Shortness of Breath/Dyspnea Stated Complaint: REFERRED BY PULMONARY . FLUID ON LUNGS ED Provider: Juan Jose Abrams Discharge Problem: Hypoxia Forms Stand Alone Forms: My [facility] Prescriptions Prescriptions: No Action ondansetron HCl 8 mg tablet 8 mg PO Q8H PRN (Reason: Nausea) RF: 0 aspirin [Ecotrin Low Strength] 81 mg Tablet,Delayed Release (Dr/Ec) 81 mg PO QAM Qty: 30 RF: 1 metoprolol succinate 100 mg tablet extended release 24 hr 100 mg PO DAILY RF: 0 clopidogrel 75 mg tablet 75 mg PO DAILY RF: 0 amlodipine 5 mg tablet 5 mg PO DAILY RF: 0 cetirizine [Zyrtec] 10 mg Tablet 10 mg PO DAILY RF: 0 folic acid 1 mg tablet 1 mg PO DAILY RF: 0 furosemide 20 mg tablet 20 mg PO DAILY RF: 0 Referrals Referrals: Kae Alba MD [Primary Care Provider] -
[2022-01-17 15:06] LABS: Basophils # (auto) 0.02 K/uL (0-0.2); Basophils % (auto) 0.2 %; Eosinophils # (auto) 0.23 K/uL (0-0.5); Eosinophils % (auto) 2.3 %; Hematocrit (blood only) 32.3 % (37-47); Hemoglobin 9.9 g/dL (12.0-16.0); Immature Granulocytes # (auto) 0.03 K/uL (0.00-0.02); Immature Granulocytes % (auto) 0.3 %; Lymphocytes # (auto) 2.04 K/uL (1.2-3.4); Lymphocytes % (auto) 20.4 %; Mean Corpuscular Hemoglobin 24.7 pg (25-34); Mean Corpuscular Hgb Conc 30.7 g/dL (32-36); Mean Corpuscular Volume 80.5 fL (80-100); Mean Platelet Volume 8.4 fL (7.4-10.4); Monocytes # (auto) 0.69 K/uL (0.11-0.59); Monocytes % (auto) 6.9 %; Neutrophils # (auto) 6.99 K/uL (1.4-6.5); Neutrophils % (auto) 69.9 %; Platelet Count 539 K/uL (130-400); RDW Standard Deviation 50.1 fL (36.4-46.3); Red Blood Count 4.01 M/uL (4.2-5.4)
[2022-01-17 15:23] LABS: Alanine Aminotransferase 4 U/L (7-52); Albumin Globulin Ratio 1.1 (0.9-2); Albumin Level 3.5 gm/dl (3.4-5.0); Alkaline Phosphatase 86 U/L (34-104); Anion Gap 8 (3-11); Aspartate Aminotransferase 14 U/L (13-39); BUN Creatinine Ratio 13.6 (10-20); Bilirubin,Total 0.5 mg/dl (0.2-1.0); Blood Urea Nitrogen 14 mg/dl (6-23); Calcium 8.8 mg/dl (8.5-10.1); Carbon Dioxide 25 mmol/L (21-32); Chloride 94 mmol/L (98-107); Est GFR (African American) 65.6 ml/min; Est GFR (Non-African American) 56.6 ml/min; Globulin 3.1 gm/dl (2.5-4.0); Glucose 98 mg/dl (70-99(Fasting)); Potassium 4.4 mmol/L (3.5-5.1); Sodium 127 mmol/L (136-145); Total Protein 6.6 gm/dl (6.0-8.3)
[2022-01-17 15:28] LABS: Partial Thromboplastin Ratio 1.1; Partial Thromboplastin Time 30.3 Seconds (21.0-31.0); Prothrombin Time 11.1 Seconds (9.0-12.0)
[2022-01-17 15:29] LABS: Troponin I High Sensitivity 3.9 pg/ml (0-14)
[2022-01-17 15:39] LABS: Base Excess VBG 1.6 mEq/L; HCO3 VBG 25 mmol/L; Oxygen Saturation VBG < 60.0 %; PCO2 VBG 37 mmHg (38-50); PO2 VBG 19 mmHg; pH VBG 7.45 (7.36-7.41)
[2022-01-17] MEDS ORDERED: OPTIRAY 320 125ml IV ONE (16:01)
--- NOTE | 2022-01-17 16:24 | CT Scan Report ---
CT ANGIOGRAPHY OF THE CHEST, PULMONARY EMBOLUS PROTOCOL CLINICAL HISTORY: Dyspnea. Non-small cell lung cancer. COMPARISON STUDY: PET/CT December 20, 2018. Chest radiograph May 27, 2019. Chest CT December 02, 2018. TECHNIQUE: Following IV administration of 95 mL of Optiray, helical axial images of the chest were ob tained utilizing the pulmonary embolus protocol. Maximal intensity projections and sagittal and noemi nal reformats were viewed on an independent 3D workstation. IV contrast was administered without com plication. Automated exposure control was utilized for the study. A dose lowering technique was uti lized adhering to the principles of ALARA. CT DOSE: 234.17 mGy.cm FINDINGS: Left subclavian [id number] is in place. Note is made of small filling defects within tw o subsegmental pulmonary arteries within the left lower lobe shown on axial image 91 of 278 and 95 of 278. No additional filling defects are identified. Right lower lobe pulmonary arteries are compresse d by adjacent mass. There is no central pulmonary embolus. Size of the heart is normal. Extensive cor onary artery calcification is present. There is a small pericardial effusion. Note is made of a large right pleural effusion which occupies 80% of the right hemithorax. Right lung aeration is markedly d iminished. Multiple right pleural enhancing masses are present consistent with a malignant effusion. Small left pleural effusion is present. Multiple coalescent masses and innumerable pulmonary nodules within the lungs are noted. The largest is within the right lung, measuring approximately 5.6 cm. Thi s represents extensive metastatic disease. There is no pneumothorax. Mildly enlarged right supraclavi cular lymph node measures 1.5 x 1 cm. Mildly enlarged right paratracheal lymph node measures 1.4 x 0. 9 cm. Adenopathy has decreased since exam of December 20, 2018. The size of the pulmonary masses has inc reased. No suspicious lesions within the bony fragments. Visualized portions of the upper abdomen are unremarkable. IMPRESSION: 1. Small filling defects within two subsegmental pulmonary arteries within the left lower lobe. These favor small pulmonary emboli although invasion by adjacent tumor could appear similar. 2. Large malignant right pleural effusion which occupies 80% of the right hemithorax with significant decrease in right lung aeration and associated mass effect with leftward mediastinal displacement. S mall left pleural effusion. Small pericardial effusion. 3. Multiple coalescent masses and innumerable pulmonary nodules within the lungs suggestive of extens justin metastatic disease. 4. Mild right supraclavicular mediastinal lymphadenopathy. ACT 112: Negative or not required by law. Electronically signed by: Dwain Rodriguez M.D. 01/17/2022 4:22 PM
--- NOTE | 2022-01-17 16:42 | Electrocardiogram Report ---
Test Reason : Blood Pressure : / mmHG Vent. Rate : 092 BPM Atrial Rate : 092 BPM P-R Int : 146 ms QRS Dur : 074 ms QT Int : 364 ms P-R-T Axes : 066 052 050 degrees QTc Int : 450 ms Poor data quality, interpretation may be adversely affected Normal sinus rhythm Low voltage QRS Abnormal ECG Confirmed by Jostin Alcala ([id number]) on 01/17/2022 4:42:19 PM Referred By: Confirmed By:Leo Alcala
--- NOTE | 2022-01-17 18:11 | History & Physical Report ---
Date of Service January 17, 2022 Assessment & Plan (1) Large pleural effusion: (2) Non-small cell cancer of right lung: (3) Hypoxia: (4) Chronic hyponatremia: (5) CKD (chronic kidney disease), stage III: (6) CAD (coronary artery disease): Plan: This is a 66-year-old female who has significant past medical history of metastatic non-small cell lung carcinoma, CAD with history of PCI and 3 stents to LAD in 2019, COPD, HTN, HLD who presents to ED secondary to worsening shortness of breath x1 month. Hypoxia Large malignant right pleural effusion Metastatic non-small cell lung cancer of R lung Admit to PCU Continue supplemental oxygen Consult pulmonology for thoracentesis in a.m. Follow Dr. Carr recent PET in november showed significant progression of tumor burden Abnormal Chest CT and possible Small pulmonary emboli LLL 1. Small filling defects within two subsegmental pulmonary arteries within the left lower lobe. These favor small pulmonary emboli although invasion by adjacent tumor could appear similar. 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 Tamez, please see addendum History of Present Illness Chief Complaint: Worsening shortness of breath x1 month. Primary Care Provider: Kae Alba MD This is a 66-year-old female who has significant past medical history of metastatic non-small cell lung carcinoma, CAD with history of PCI and 3 stents to LAD in 2019, COPD, HTN, HLD who presents to ED secondary to worsening shortness of breath x1 month. Of significance patient was initially diagnosed with non-small cell lung cancer in December 2018. She follows with Dr. Carr. Recent PET/CT done on 12/16/2021 shows significant disease progression. She previously has been on a chemo holiday and plan is to start Navelbine in 1 wee k.She has a known right pleural effusion for which she follows pulmonology, Dr. Mckeon. She had a CT chest done on 12/24/2021 which revealed a loculated right pleural effusion with compressive atelectasis and extensive patchy bilateral airspace disease. At that time it was recommended patient undergo thoracentesis; however patient declined. In the interim she has been treated with Lasix 20 mg daily every other day, but patient does not feel this is improving. She complains of worsening shortness of breath at rest, a dry cough which worsens her shortness of breath, approximate 15 pound weight loss in the past 1-1/2 months and generalized weakness. She denies any fever, chills, sweats, lightheadedness, dizziness, chest pain, shortness of breath at rest, hemoptysis, emesis, abdominal pain, dysuria, increased urgency or frequency with urination, melena or hematochezia. She does complain of dizziness and lightheadedness and feelings of, "passing out," whenever she coughs. She does not use oxygen at home. When patient arrived to ED she was hypoxic at 86%. He required 2 L oxygen supplementation.Chest CT revealed large malignant right pleural effusion which occupies 80% of the right hemithorax with significant decrease in right lung aeration and associated mass-effect with leftward mediastinal displacement. Small left pleural effusion and small pericardial effusion. Multiple coalescent masses and innumerable pulmonary nodules within the lung suggestive of extensive metastatic disease. Mild right supraclavicular mediastinal lymphadenopathy noted. There were also 2 small filling defects within the 2 submental pulmonary arteries within the left lower lobe. Of question is if it is related to pulmonary emboli versus invasion of adjacent tumor. Allergies Allergy/AdvReac Type Severity Reaction Status Date / Time barley Allergy Intermediate INDIGESTION/GI Verified 01/17/22 15:30 SYMPTOMS chocolate flavor Allergy Intermediate HEADACHES Verified 01/17/22 15:30 WITH LARGE QUANTITIES horse dander Allergy Intermediate ITCHING Verified 01/17/22 15:30 mold Allergy Intermediate ITCHING/DIFFICULT Verified 01/17/22 15:30 BREATHING Penicillins Allergy Intermediate Hives Verified 01/17/22 15:30 cheese AdvReac Intermediate CONSTIPATION/GI Verified 01/17/22 15:30 SYMPTOMS Home Medications Medication Instructions Recorded Confirmed Type ondansetron HCl 8 mg tablet 8 mg PO Q8H PRN 05/27/19 01/17/22 History aspirin 81 mg tablet,delayed 81 mg PO QAM #30 tab 05/30/19 01/17/22 Rx release (Ecotrin Low Strength) amlodipine 5 mg tablet 5 mg PO DAILY 01/17/22 01/17/22 History cetirizine 10 mg tablet (Zyrtec) 10 mg PO DAILY 01/17/22 01/17/22 History clopidogrel 75 mg tablet 75 mg PO DAILY 01/17/22 01/17/22 History folic acid 1 mg tablet 1 mg PO DAILY 01/17/22 01/17/22 History furosemide 20 mg tablet 20 mg PO DAILY 01/17/22 01/17/22 History metoprolol succinate 100 mg 100 mg PO DAILY 01/17/22 01/17/22 History tablet,extended release 24 hr Past Med/Surg History Medical History (Updated 01/17/22 @ 18:06 by Kate Ellison PA-C) Allergic rhinitis Asthma HAS NOT USED INHALER SINCE PRESCRIBED CAD (coronary artery disease) Chronic cough Dyslipidemia, goal LDL below 130 GERD (gastroesophageal reflux disease) Herpes simplex viral infection Mediastinal adenopathy Migraine HX OF 2010 Non-small cell cancer of right lung Pulmonary nodules TMJ (temporomandibular joint disorder) Surgical History History of 1973 History of tooth extraction Family History Mother Family history of diabetes mellitus Heart disease Father Coronary heart disease Social History (Updated 05/27/19 @ 17:21 by Kate Ellison PA-C) Smoking Status: Never smoker Second Hand Exposure: No; Hx Alcohol Use: No Hx Substance Use: No Preferred Language: Persian Communication Ability: Effective 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 Beliefs That Will Affect Care: None marital status: Current Living Situation: Spouse Feels Safe at Home: Yes Assistive Devices: None Review of Systems Review of Systems: All systems reviewed & are unremarkable except as noted in HPI & below Physical Exam Physical Exam: Constitutional: Thin, cachectic, chronically ill looking female, vitals as above, NAD, answers questions appropriately, coughs with conversation Head: Normocephalic, Atraumatic Eyes: PERRL, conjunctivae normal, anicteric sclerae ENMT: external ear and nose normal, oropharynx normal Neck: trachea midline, no thyromegaly normal visual inspection Respiratory: normal respiratory effort, absent breath sounds R, otherwise CTA throughout L lung. Normal insp/exp effort, no accessory muscle use Cardiovascular: RRR, no murmur, no edema Vessels: no JVD or carotid bruit Chest: normal inspection of chest , LACW mediport noted Abdomen: normal bowel sounds, soft, nontender, no hepatosplenomegaly Musculoskeletal: no cyanosis or clubbing, AROM x 4 Skin: no rashes, warm and dry normal turgor Neurologic: PERRL, EOMI, accommodation nl, no face palsy, no dysarthria CN's II-XI intact bilaterally and moves all extremities Psychiatric: A+Ox3, euthymic affect : deferred Results & Data Results & Data ([facility]) Vital Signs (Past 12 Hours) Vital Signs Temp Pulse Pulse Resp BP Pulse Ox 01/17/22 17:00 20 95 01/17/22 16:30 86 32 H 103/74 93 01/17/22 16:20 86 31 H 80 L 01/17/22 16:10 86 29 H 88 L 01/17/22 16:03 85 4 L 01/17/22 15:40 93 H 35 H 71 L 01/17/22 15:31 93 H 31 H 102/77 01/17/22 15:30 95 H 28 H 01/17/22 15:24 93 H 22 94 01/17/22 15:20 92 H 32 H 92 01/17/22 15:10 90 29 H 94 01/17/22 15:00 89 30 H 94 01/17/22 14:50 90 30 H 83 L 01/17/22 14:40 93 H 25 H 89 L 01/17/22 14:33 93 H 29 H 01/17/22 14:18 36.3 C L 98 H 20 101/67 86 L Diagnostic Findings Chest CTA 01/17/22 14:47 CT ANGIOGRAPHY OF THE CHEST, PULMONARY EMBOLUS PROTOCOL CLINICAL HISTORY: Dyspnea. Non-small cell lung cancer. COMPARISON STUDY: PET/CT December 20, 2018. Chest radiograph May 27, 2019. Chest CT December 02, 2018. TECHNIQUE: Following IV administration of 95 mL of Optiray, helical axial images of the chest were obtained utilizing the pulmonary embolus protocol. Maximal intensity projections and sagittal and coronal reformats were viewed on an independent 3D workstation. IV contrast was administered without complication. Automated exposure control was utilized for the study. A dose lowering technique was utilized adhering to the principles of ALARA. CT DOSE: 234.17 mGy.cm FINDINGS: Left subclavian [id number] is in place. Note is made of small filling defects within two subsegmental pulmonary arteries within the left lower lobe shown on axial image 91 of 278 and 95 of 278. No additional filling defects are identified. Right lower lobe pulmonary arteries are compressed by adjacent mass. There is no central pulmonary embolus. Size of the heart is normal. Extensive coronary artery calcification is present. There is a small pericardial effusion. Note is made of a large right pleural effusion which occupies 80% of the right hemithorax. Right lung aeration is markedly diminished. Multiple right pleural enhancing masses are present consistent with a malignant effusion. Small left pleural effusion is present. Multiple coalescent masses and innumerable pulmonary nodules within the lungs are noted. The largest is within the right lung, measuring approximately 5.6 cm. This represents extensive metastatic disease. There is no pneumothorax. Mildly enlarged right supraclavicular lymph node measures 1.5 x 1 cm. Mildly enlarged right paratracheal lymph node measures 1.4 x 0.9 cm. Adenopathy has decreased since exam of December 20, 2018. The size of the pulmonary masses has increased. No suspicious lesions within the bony fragments. Visualized portions of the upper abdomen are unremarkable. IMPRESSION: 1. Small filling defects within two subsegmental pulmonary arteries within the left lower lobe. These favor small pulmonary emboli although invasion by adjacent tumor could appear similar. 2. Large malignant right pleural effusion which occupies 80% of the right hemithorax with significant decrease in right lung aeration and associated mass effect with leftward mediastinal displacement. Small left pleural effusion. Small pericardial effusion. 3. Multiple coalescent masses and innumerable pulmonary nodules within the lungs suggestive of extensive metastatic disease. 4. Mild right supraclavicular mediastinal lymphadenopathy. ACT 112: Negative or not required by law. Electronically signed by: Dwani Rodriguez M.D. 01/17/2022 4:22 PM Medications Administered Medication List Discontinued Medications Ioversol (Optiray 320 125ml) 95 ml IV ONCE ONE Stop: 01/17/22 16:02 Last Admin: 01/17/22 16:02 Dose: 95 ml Documented by: [id number] ECG Rate (beats per minute): 92 Rhythm: normal sinus COVID-19 Results Results COVID-19 Adm Lab Results: RBC 4.01 M/uL (4.2-5.4) L 01/17/22 WBC 10.00 K/uL (4.8-10.8) 01/17/22 Hgb 9.9 g/dL (12.0-16.0) L 01/17/22 Hct 32.3 % (37-47) L 01/17/22 Plt Count 539 K/uL (130-400) H 01/17/22 Neutrophils (%) (Auto) 69.9 % 01/17/22 Lymphocytes (%) (Auto) 20.4 % 01/17/22 Monocytes # (Auto) 0.69 K/uL (0.11-0.59) H 01/17/22 Eosinophils # (Auto) 0.23 K/uL (0-0.5) 01/17/22 Immature Granulocyte % (Auto) 0.3 % 01/17/22 Neutrophils # (Auto) 6.99 K/uL (1.4-6.5) H 01/17/22 Lymphocytes # (Auto) 2.04 K/uL (1.2-3.4) 01/17/22 Monocytes # (Auto) 0.69 K/uL (0.11-0.59) H 01/17/22 Eosinophils # (Auto) 0.23 K/uL (0-0.5) 01/17/22 Basophils # (Auto) 0.02 K/uL (0-0.2) 01/17/22 Immature Granulocyte # (Auto) 0.03 K/uL (0.00-0.02) H 01/17/22 Na 127 mmol/L (136-145) L 01/17/22 K 4.4 mmol/L (3.5-5.1) 01/17/22 Cl 94 mmol/L (98-107) L 01/17/22 CO2 25 mmol/L (21-32) 01/17/22 Anion Gap 8 (3-11) 01/17/22 BUN 14 mg/dl (6-23) 01/17/22 Creatinine 1.03 mg/dl (0.6-1.2) 01/17/22 BUN/Creatinine Ratio 13.6 (10-20) 01/17/22 Glucose Level 98 mg/dl (70-99(Fasting)) 01/17/22 Ca 8.8 mg/dl (8.5-10.1) 01/17/22 Total Bilirubin 0.5 mg/dl (0.2-1.0) 01/17/22 AST/SGOT 14 U/L (13-39) 01/17/22 ALT/SGPT 4 U/L (7-52) L 01/17/22 Alkaline Phosphatase 86 U/L (34-104) 01/17/22 Total Protein 6.6 gm/dl (6.0-8.3) 01/17/22 Albumin 3.5 gm/dl (3.4-5.0) 01/17/22 Globulin 3.1 gm/dl (2.5-4.0) 01/17/22 Albumin/Globulin Ratio 1.1 (0.9-2) 01/17/22 Procalcitonin 0.09 ng/ml (0-0.5) 01/17/22 PTT 30.3 Seconds (21.0-31.0) 01/17/22 INR 1.0 (0.9-1.1) 01/17/22 SARS-CoV-2, RNA, NAAT NEGATIVE (NEGATIVE) 01/17/22 Code Status & VTE Plan Code Status FULL CODE VTE Prophylaxis Plan VTE Prophylaxis will be ordered: Yes Supervising Physician Co-Signing Physician Notes 66-year-old female with known adenocarcinoma of the lung with metastasis presents with progressive shortness of breath with dry nonproductive cough secondary to right-sided pleural effusion. CT scan of the chest with contrast also revealed small filling defect defects in the left lower lobe consistent with small pulmonary emboli. She denies any chest pain, shortness of breath at rest, nausea, hemoptysis, blood per rectum. She does not use oxygen at home and is currently on 3 L nasal cannula. She was 86% oxygen saturation on room air on arrival to the ER this afternoon. She is cachectic appearing and has lost appr oximately 15 pounds in the last 1-1/2 months and is generally weak. She currently has to urinate and is having an issue with the pure wick. Cancer history: She was diagnosed with right lower lobe non-small cell lung cancer (adenocarcinoma in December 2018. She is a non-smoker. Per she was started on Alimta, carboplatin, Keytruda in January 2019 last cycle received on February 2019. She couln't receive next treatment because of worsening kidney function. Gemcitabine given weekly x2 started in April 2019 but stopped because of worsening renal function. She continued reduced gemcitabine with last c hemotherapy received October 2019. No treatment given between October 2019 and February 2020. She received Abraxane between March 2020 and February 2021. She received nivolumab single agent every 2 weeks from February 2021 to May 2021, which was stopped due to disease progression. Then received Alimta single agent every 3 weeks from that point till October 2021. Currently considering navelbine to start next week per [facility]. On physical exam she appears uncomfortable. She is cachectic and weak, coughing every few seconds when she tried to speak or exert herself. No real increased work of breathing at rest. Diminished breath sounds on the left and no breath sounds on the right, no wheezing, crackles or rales are heard. Abdomen exam is limited as patient has to urinate. She has no peripheral edema. Skin is warm and dry with a port in the left anterior chest wall. Lab work reveals no leukocytosis and baseline anemia with an elevated platelet count of 539, likely reactive. Coags are normal. Sodium is 127, potassium 4.4, chloride 94, CO2 25 and normal kidney function. Liver function studies are normal. Highly sensitive troponin is negative. Procalcitonin is negative at 0.09. Urine is clear of infection. CTA as above and a large malignant right pleural effusion occupying 80% of the right hemithorax with significant decrease in right lung aeration and associated mass-effect with leftward mediastinal displacement. Small pericardial effusion and small left pleural effusion also seen. Multiple coalescent masses and innumerable pulmonary nodules in the lungs suggestive of extensive metastasis is also present. EKG reveals normal sinus rhythm with a rate of 92, no ST changes suggestive of ischemia. Intervals are normal. 66-year-old female presents with symptomatic right malignant pleural effusion, acute pulmonary embolism and hyponatremia. She reports being scheduled to undergo chemotherapy next week and continues to be helpful for a better pr ognosis with treatment. She is a confirmed full code and son is present for this discussion. Heparin was started in the ER for acute subsegmental pulmonary emboli and communication with pulmonary by phone confirmed to hold the heparin at 0500 in preparation for thoracentesis. She is also on dual antiplatelet therapy for stents in 2019. Will hold clopidogrel and continue aspirin while patient is on heparin. With the underlying hyponatremia, home furosemide will be held. Outpatient trend for sodium was in the low 130s and is currently 127 which is likely multifactorial given poor p.o. intake, recent diuretic use and underlying lung cancer. Repeat BMP this evening and encourage p.o. intake. Severe protein calorie malnutrition is present, and nutrition consult may be helpful. She denies any pain at this time. Monitor on telemetry overnight. DO Dashawn
[2022-01-17 18:55] LABS: Appearance Urine Clear (Clear); Bilirubin Urine Negative (Negative); Blood Urine Negative (Negative); Color Urine Yellow; Glucose Urine UA Negative (Negative); Ketones Urine Trace (Negative); Leukocyte Esterase Urine Negative (Negative); Nitrite Urine Negative (Negative); Protein Urine Negative (Negative); Specific Gravity Urine 1.028 (1.000-1.030); Urobilinogen Urine Negative (Negative); pH Urine 6.5 (4.5-7.5)
[2022-01-17] MEDS ORDERED: Heparin IV Adult Wt-Based Standard *NO* Bolus Protocol IV SCH (19:00)
[2022-01-17] MEDS ORDERED: HEPARIN SODIUM/DEXTROSE 25,000 UNITS/500 ML BAG IV SCH (19:00)
[2022-01-17] MEDS ORDERED: HEPARIN 25000 UNIT/500 ML D5W IV ONE (19:12)
[2022-01-17 20:02] LABS: Thyroid Stimulating Hormone 8.241 uIu/ml (0.300-4.500)
[2022-01-17] MEDS ORDERED: ONDANSETRON INJ 2 MG/ML 2 ML VIAL IV PRN (20:05)
[2022-01-17] MEDS ORDERED: POLYETHYLENE (MIRALAX) 17 GM PACK PO PRN (20:05)
[2022-01-17] MEDS ORDERED: ACETAMINOPHEN 325 MG TAB PO PRN (20:05)
[2022-01-17] MEDS ORDERED: ALUMINUM/MAGNESIUM SUSP 30 ML UDC PO PRN (20:05)
[2022-01-17] MEDS ORDERED: MAGNESIUM HYDROXIDE SUSP 30 ML UDC PO PRN (20:05)
[2022-01-17 20:39] LABS: T4 Free Thyroxine 1.25 ng/dl (0.61-1.60)
[2022-01-17 21:25] LABS: BUN Creatinine Ratio 14.9 (10-20); Calcium 8.7 mg/dl (8.5-10.1); Creatinine Clr Calc Pharmacy 45.4 ml/min; Est GFR (African American) 73.3 ml/min; Est GFR (Non-African American) 63.2 ml/min; Potassium 4.2 mmol/L (3.5-5.1)
[2022-01-18] MEDS ORDERED: HEPARIN STOP ORDER ONE (04:45)
[2022-01-18] MEDS: HEPARIN 100 UNIT/ML 5ML FLUSH FLUSH PRN (05:43)
[2022-01-18 05:49] LABS: Basophils # (auto) 0.02 K/uL (0-0.2); Basophils % (auto) 0.3 %; Eosinophils # (auto) 0.35 K/uL (0-0.5); Eosinophils % (auto) 4.5 %; Hematocrit (blood only) 30.2 % (37-47); Hemoglobin 9.3 g/dL (12.0-16.0); Immature Granulocytes # (auto) 0.03 K/uL (0.00-0.02); Immature Granulocytes % (auto) 0.4 %; Lymphocytes # (auto) 1.91 K/uL (1.2-3.4); Lymphocytes % (auto) 24.7 %; Mean Corpuscular Hemoglobin 24.9 pg (25-34); Mean Corpuscular Hgb Conc 30.8 g/dL (32-36); Mean Corpuscular Volume 80.7 fL (80-100); Mean Platelet Volume 8.4 fL (7.4-10.4); Monocytes # (auto) 0.65 K/uL (0.11-0.59); Monocytes % (auto) 8.4 %; Neutrophils # (auto) 4.77 K/uL (1.4-6.5); Neutrophils % (auto) 61.7 %; Platelet Count 503 K/uL (130-400); RDW Coefficient of Variation 17.2 % (11.5-14.5); RDW Standard Deviation 50.5 fL (36.4-46.3); Red Blood Count 3.74 M/uL (4.2-5.4); White Blood Count 7.73 K/uL (4.8-10.8)
[2022-01-18 06:13] LABS: Albumin Globulin Ratio 1.2 (0.9-2); Albumin Level 3.4 gm/dl (3.4-5.0); BUN Creatinine Ratio 15.5 (10-20); Bilirubin,Total 0.4 mg/dl (0.2-1.0); Calcium 8.5 mg/dl (8.5-10.1); Est GFR (African American) 70.5 ml/min; Est GFR (Non-African American) 60.9 ml/min; Globulin 2.8 gm/dl (2.5-4.0); Magnesium 1.7 mg/dl (1.7-2.4); Total Protein 6.2 gm/dl (6.0-8.3)
[2022-01-18] MEDS: ASPIRIN 81 MG ECTAB PO SCH (08:04)
[2022-01-18] MEDS: FOLIC ACID 1 MG TAB PO SCH ×2 (08:04→08:14)
[2022-01-18] MEDS: CETIRIZINE HCL 10 MG TABLET PO SCH (08:04)
--- NOTE | 2022-01-18 08:12 | Pulmonary Consultation ---
Date of Consultation January 18, 2022 Assessment & Plan (1) Malignant pleural effusion: We will proceed with thoracentesis for diagnostic and therapeutic purposes. (2) Acute dyspnea: Likely multifactorial from her malignancy, pleural effusions and possibly her pulmonary embolism. (3) Metastatic lung cancer (metastasis from lung to other site): Under the care of oncology. Would recommend palliative care consultation. (4) Pulmonary emboli: Unclear whether these areas represent true pulmonary embolism or tumor emboli. She is hypercoagulable. Agree with anticoagulation. Thank you for the consult. Please call with questions. History of Present Illness Reason for Consultation: Large right-sided pleural effusion which is likely malignant. Attending Physician: Harrison Raymond MD History of Present Illness 66-year-old female with a past medical history of metastatic non-small cell adenocarcinoma on chemotherapy, coronary artery disease with PCI currently on Plavix, COPD, hypertension, hyperlipidemia and anxiety who presented to the hospital due to shortness of breath for the past month. Notes worsening dry cough. Poor appetite. Weight loss. Notably she was originally diagnosed with non-small cell adenocarcinoma of the lung in December 2018. She follows with [facility] oncology. She also follows with [facility] pulmonology. She had a CT 12/24/2021 which revealed a loculated pleural effusion with compressive atelectasis. Patient declined thoracentesis at that time. She presents today with worsening shortness of breath and weak this. She also has a declining appetite. CT of her chest was done yesterday which demonstrated multiple coalescent masses and innumerable pulmonary nodules within the lungs consistent with metastatic disease. A large malignant effusion was seen occupying 80% of the lung on the right. Small pericardial effusion seen. Also seen where incidental small bit filling defects within 2 subsegmental pulmonary arteries in the left lower lobe. She was initiated on a heparin drip. This was discontinued at 5 AM in anticipation of a thoracentesis. Platelet count 503,000. INR is 1.0. Allergies Allergy/AdvReac Type Severity Reaction Status Date / Time barley Allergy Intermediate INDIGESTION/GI Verified 01/17/22 15:30 SYMPTOMS chocolate flavor Allergy Intermediate HEADACHES Verified 01/17/22 15:30 WITH LARGE QUANTITIES horse dander Allergy Intermediate ITCHING Verified 01/17/22 15:30 mold Allergy Intermediate ITCHING/DIFFICULT Verified 01/17/22 15:30 BREATHING Penicillins Allergy Intermediate Hives Verified 01/17/22 15:30 cheese AdvReac Intermediate CONSTIPATION/GI Verified 01/17/22 15:30 SYMPTOMS Home Medications Medication Instructions Recorded Confirmed Type ondansetron HCl 8 mg tablet 8 mg PO Q8H PRN 05/27/19 01/17/22 History aspirin 81 mg tablet,delayed 81 mg PO QAM #30 tab 05/30/19 01/17/22 Rx release (Ecotrin Low Strength) amlodipine 5 mg tablet 5 mg PO DAILY 01/17/22 01/17/22 History cetirizine 10 mg tablet (Zyrtec) 10 mg PO DAILY 01/17/22 01/17/22 History clopidogrel 75 mg tablet 75 mg PO DAILY 01/17/22 01/17/22 History folic acid 1 mg tablet 1 mg PO DAILY 01/17/22 01/17/22 History furosemide 20 mg tablet 20 mg PO DAILY 01/17/22 01/17/22 History metoprolol succinate 100 mg 100 mg PO DAILY 01/17/22 01/17/22 History tablet,extended release 24 hr Patient History Medical History (Updated 01/18/22 @ 08:11 by Berny Marsh MD) Acute dyspnea Allergic rhinitis Asthma HAS NOT USED INHALER SINCE PRESCRIBED CAD (coronary artery disease) Chronic cough Dyslipidemia, goal LDL below 130 GERD (gastroesophageal reflux disease) Herpes simplex viral infection Malignant pleural effusion Mediastinal adenopathy Metastatic lung cancer (metastasis from lung to other site) Migraine HX OF 2009 Non-small cell cancer of right lung Pulmonary emboli Pulmonary nodules TMJ (temporomandibular joint disorder) Surgical History History of 1973 History of tooth extraction Family History Mother Family history of diabetes mellitus Heart disease Father Coronary heart disease Social History (Updated 05/27/19 @ 17:21 by Kate Ellison PA-C) Smoking Status: Never smoker Second Hand Exposure: No; Hx Alcohol Use: No Hx Substance Use: No Preferred Language: Estonian Communication Ability: Effective Coin Box Collector Required: No Beliefs That Will Affect Care: None marital status: Current Living Situation: Spouse and Family Feels Safe at Home: Yes Safety Concerns: Feels Safe At This Time Assistive Devices: Glasses Review of Systems Review of Systems: All systems reviewed & are unremarkable except as noted in HPI & below Physical Exam Physical Exam: Constitutional: Thin and frail appearing woman in no apparent distress. Eyes: Pupils are equal round and reactive to light. Conjunctivae are normal. Anicteric sclera. Ears nose, mouth and throat: No facial deformity Neck: Trachea is midline. Visual inspection is normal. Respiratory: Diminished lung sounds on the right. mild increased wob with exertion. Cardiovascular: Regular rate and rhythm. No murmurs. No edema. Gastrointestinal: Normal bowel sounds, soft, nontender and nondistended. No hepatosplenomegaly noted. Musculoskeletal: No cyanosis. Patient is able to move all extremities. Skin: No rashes, warm dry and intact. Neurologic: No obvious focal neurological deficits seen. Psychiatric: Alert and oriented x3 with a euthymic affect. Results & Data Results & Data ([facility]) Vital Signs (Past 12 Hours) Vital Signs Temp Pulse Pulse Pulse Pulse Resp BP 01/18/22 07:49 36.4 C L 101 H 20 100/66 01/18/22 04:33 36.6 C 82 18 97/59 L 01/17/22 22:51 37.2 C 91 H 18 102/70 01/17/22 22:18 94 H 01/17/22 20:20 85 Pulse Ox 01/18/22 07:49 91 01/18/22 04:33 92 01/17/22 22:51 91 01/17/22 22:18 01/17/22 20:20 PG Care Time/CCT Total # of Minutes Spent Total Time Spent with Patient: Total time spent is greater than 50% in coordination of care (as documented) at patient's floor/unit and/or counseling patient: Coding Level of Care Code 65267 Inpt Consult Level 5 Diagnoses Malignant pleural effusion J91.0 Acute dyspnea R06.00 Metastatic lung cancer (metastasis from lung to other site) C34.90 Pulmonary emboli I26.99
[2022-01-18 08:43] LABS: Partial Thromboplastin Ratio 4.8
[2022-01-18 08:55] LABS: Partial Thromboplastin Time 132.8 Seconds (21.0-31.0)
[2022-01-18] MEDS ORDERED: METOPROLOL SUCC 50MG EXT REL TAB PO SCH (09:00)
[2022-01-18] MEDS ORDERED: amLODIPine BESYLATE 5 MG TAB PO SCH (09:00)
[2022-01-18 11:14] LABS: Partial Thromboplastin Ratio 2.6
[2022-01-18 11:19] LABS: Partial Thromboplastin Time 72.1 Seconds (21.0-31.0)
[2022-01-18] MEDS: CALCIUM CARBONATE 500 MG CHEWABLE TAB PO PRN (11:48)
[2022-01-18] MEDS: BENZONATATE 100 MG CAPSULE PO PRN ×2 (11:48→20:11)
[2022-01-18 15:17] LABS: Partial Thromboplastin Ratio > 5.1
[2022-01-18] MEDS: traMADol HCL 50 MG TABLET PO PRN (15:19)
[2022-01-18 15:47] LABS: Partial Thromboplastin Time > 139.0 Seconds (21.0-31.0)
--- NOTE | 2022-01-18 17:29 | Hospitalist Progress Note ---
Date of Service January 18, 2022 Assessment & Plan (1) Large pleural effusion: (2) Non-small cell cancer of right lung: (3) Hypoxia: (4) Chronic hyponatremia: (5) CKD (chronic kidney disease), stage III: (6) CAD (coronary artery disease): Plan: This is a 66-year-old female who has significant past medical history of metastatic non-small cell lung carcinoma, CAD with history of PCI and 3 stents to LAD in 2019, COPD, HTN, HLD who presents to ED secondary to worsening shortness of breath x1 month. Hypoxia Large malignant right pleural effusion Metastatic non-small cell lung cancer of R lung Present on with worsening SOB Recent PET in november showed significant progression of tumor burden CTA chest showed large malignant right pleural effusion which occupies 80% of the right hemithorax with significant decrease in right lung aeration and associated mass effect with leftward mediastinal displacement. Continue supplemental oxygen Pulm on board Plan for thoracentesis, but due to elevated PTT procedure was postponed for tomorrow Case discussed with pulm that recommended to hold the heparin drip for the thoracentesis Consider palliative care evaluation Continue monitor closely Abnormal Chest CT CT showed possible small pulmonary emboli LLL CTA showed small filling defects within two subsegmental pulmonary arteries within the left lower lobe. These favor small pulmonary emboli although invasion by adjacent tumor could appear similar. 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 Patient said she has been coughing Plan to get thoracentesis done today but due to increase PTT procedure postpone for tomorrow She said that the oxygen help with the breathing Denies any chest pain, palpitation and dizziness Review of Systems Review of Systems: All systems reviewed & are unremarkable except as noted in Subjective Physical Exam Physical Exam: General- No acute distress Head- atraumatic Eyes- PERRL, EOMI, ENT- oropharynx clear Neck- supple, no JVD Lungs- Diminished breath sound Heart- regular rhythm; no murmur Abdomen- normal bowel sounds, soft, nontender Extremities- no calf tenderness Neuro- alert, oriented x 3; PERRL, EOMI; no facial palsy; no dysarthria Skin- warm & dry Results & Data Results & Data ([facility]) Vital Signs (Past 12 Hours) Vital Signs Temp Pulse Pulse Pulse Resp BP Pulse Ox 01/18/22 15:56 36.4 C L 93 H 20 104/70 89 L 01/18/22 15:37 97 H 01/18/22 11:44 36.5 C 79 20 103/68 91 01/18/22 08:25 85 01/18/22 07:49 36.4 C L 101 H 20 100/66 91
[2022-01-19] MEDS ORDERED: XOPENEX/ATROVENT 1.25mg/0.5MG NEB COMBO NEB STA (00:13)
[2022-01-19] MEDS ORDERED: IPRATROPIUM BROMIDE NEB SOLN 0.02% 2.5 ML VIAL INH STA (00:20)
[2022-01-19] MEDS ORDERED: LEVALBUTEROL 1.25MG/0.5ML NEB INH STA (00:20)
[2022-01-19] MEDS ORDERED: methylPREDNISolone 20 MG in SYRINGE 0 ML IV STA (00:21)
[2022-01-19] MEDS ORDERED: ALBUMIN 25% 100 mL 25 GM/100 ML VIAL IV ONE (00:25)
[2022-01-19] MEDS ORDERED: MAGNESIUM SULFATE / D5W 1 GM/100 ML BAG IV ONE (00:30)
[2022-01-19 00:54] LABS: Basophils # (auto) 0.02 K/uL (0-0.2); Basophils % (auto) 0.2 %; Eosinophils # (auto) 0.54 K/uL (0-0.5); Eosinophils % (auto) 5.6 %; Hematocrit (blood only) 29.7 % (37-47); Immature Granulocytes # (auto) 0.03 K/uL (0.00-0.02); Immature Granulocytes % (auto) 0.3 %; Lymphocytes # (auto) 1.99 K/uL (1.2-3.4); Lymphocytes % (auto) 20.6 %; Mean Corpuscular Hemoglobin 24.7 pg (25-34); Mean Corpuscular Hgb Conc 30.3 g/dL (32-36); Mean Corpuscular Volume 81.4 fL (80-100); Mean Platelet Volume 8.5 fL (7.4-10.4); Monocytes # (auto) 0.79 K/uL (0.11-0.59); Monocytes % (auto) 8.2 %; Neutrophils # (auto) 6.29 K/uL (1.4-6.5); Neutrophils % (auto) 65.1 %; Platelet Count 522 K/uL (130-400); RDW Coefficient of Variation 17.3 % (11.5-14.5); RDW Standard Deviation 51.3 fL (36.4-46.3); Red Blood Count 3.65 M/uL (4.2-5.4); White Blood Count 9.66 K/uL (4.8-10.8)
[2022-01-19 01:00] LABS: Base Excess ABG -0.6 mEq/L (-9-1.8); HCO3 ABG 23 mmol/L (19-24); Oxygen Saturation ABG 88.7 % (90-95); PCO2 ABG 33 mmHg (35-46); PO2 ABG 59 mmHg (80-95); pH ABG 7.46 (7.35-7.45)
--- NOTE | 2022-01-19 01:03 | Communication Note ---
ChestDate of Service: January 19, 2022 Made aware by RN of increase in O2 requirement after patient got off bedpan. Breathing is normal as per patient as per RN. Patient with dry cough symptoms. O2 sats 88 on nonrebreather. SBP later noted to be 80s. Chest x-ray as per my interpretation total white out right lung from pleural effusion with tracheal shift, multiple pulmonary nodules left AP Worsening hypoxemic respiratory failure secondary to likely malignant pleural effusion Pulmonary embolism on IV heparin hx COPD Hypotension Supplemental O2 Baseline ABG Solu-Medrol, neb treatment given dry cough symptoms, hx COPD Notify Pulmonology if oxygenation does improve with above intervention (Pleural tap contemplated) Decrease maintenance beta-shar for now, hold amlodipine
[2022-01-19 01:09] LABS: Allen Test POS (Pos)
[2022-01-19 01:22] LABS: Albumin Globulin Ratio 1.2 (0.9-2); Albumin Level 3.3 gm/dl (3.4-5.0); BUN Creatinine Ratio 13.8 (10-20); Bilirubin,Total 0.4 mg/dl (0.2-1.0); Calcium 8.4 mg/dl (8.5-10.1); Creatinine Clr Calc Pharmacy 45.4 ml/min; Est GFR (African American) 73.3 ml/min; Est GFR (Non-African American) 63.2 ml/min; Globulin 2.7 gm/dl (2.5-4.0); Magnesium 1.7 mg/dl (1.7-2.4)
[2022-01-19 01:24] LABS: Partial Thromboplastin Ratio 1.7
[2022-01-19] MEDS: FOLIC ACID 1 MG TAB PO SCH (07:15)
[2022-01-19] MEDS: ASPIRIN 81 MG ECTAB PO SCH (07:17)
[2022-01-19] MEDS: BENZONATATE 100 MG CAPSULE PO PRN ×2 (07:17→18:50)
[2022-01-19] MEDS: CETIRIZINE HCL 10 MG TABLET PO SCH (07:17)
[2022-01-19 07:34] LABS: Partial Thromboplastin Time 27.8 Seconds (21.0-31.0)
[2022-01-19] MEDS ORDERED: METOPROLOL SUCC 25MG EXT REL TAB PO SCH (09:00)
--- NOTE | 2022-01-19 09:13 | XRay Report ---
XR chest 1V portable CLINICAL HISTORY: low o2. Non-small cell lung cancer. COMPARISON STUDY: Chest CT January 17, 2022. FINDINGS: Left subclavian [id number]-[id number] is in place. Near complete opacification of the right hemitho rax has progressed since CT of January 17, 2022. This is due to a large right pleural effusion. Associa petey mass effect with leftward mediastinal shift. Multiple nodules and masses within the left lung are noted. There is no pneumothorax. IMPRESSION: 1. Near complete opacification of the right hemithorax which has progressed since prior chest CT. Min imal right lung aeration. This is due to a large right pleural effusion. 2. Extensive metastatic disease within the left lung. ACT 112: Negative or not required by law. Electronically signed by: Dwain Rodriguez M.D. 01/19/2022 9:11 AM
--- NOTE | 2022-01-19 11:10 | XRay Report ---
XR chest 1V portable CLINICAL HISTORY: Post thoracentesis COMPARISON STUDY: Chest CT January 17, 2022. Chest radiograph January 19, 2022. FINDINGS: No pneumothorax is identified status post right thoracentesis. Right lung aeration has impr saida. Right pleural effusion has significantly decreased in size with decrease in mass effect. Multip le nodules and masses within the lungs are present. Left subclavian Vwywrt-q-[id number] is in place. IMPRESSION: No pneumothorax following right thoracentesis. Significant decrease in size of the right pleural effusion and improvement in associated mass effect. ACT 112: Negative or not required by law. Electronically signed by: Dwain Rodriguez M.D. 01/19/2022 11:08 AM
--- NOTE | 2022-01-19 11:13 | Procedure Note ---
Procedure Note Date of Service January 19, 2022 Note Procedure: Diagnostic and/or therapeutic ultrasound-guided catheter thoracentesis Assistant Project Manager: Dr. Berny Marsh Indication: Pleural effusion Consent: Signed by patient and verified with timeout prior to procedure Anesthesia: 8 mL's of 1% lidocaine without epinephrine given locally Procedure: Consent was verified and timeout performed. Appropriate imaging studies were reviewed prior to the procedure. Patient was placed in a semi-recumbent and limited thoracic ultrasound was performed of the [right or left lateral] chest. See separate imaging. The site appropriate for thoracentesis was selected. The skin was prepped and draped in normal sterile fashion. Lidocaine was used for local analgesia. Fluid was aspirated via the finder needle. A small skin julio cesar was made with the scalpel and the catheter over the needle apparatus was advanced over the rib into the pleural space. Using the syringe one-way valve system, a total of 1200 mL's of red fluid was removed. Procedure was terminated due to discomfort. The catheter was removed and observed to be intact. A sterile dressing was applied. Post procedure chest x-ray was ordered. Fluid was sent for LDH, total protein, cell count, glucose, pH, cytology, AFB c ultures, gram stain and culture and fungal cultures. The patient tolerated the procedure well without obvious complication Coding CPT Codes Pulmonary/Thoracic - Pulmonary and Thoracic: 24629 Thoracentesis w imaging ([id number]) [facility] Procedure Codes (Charges) Pulmonary/Thoracic Procedure 1: Pulmonary and Thoracic: 82396 Thoracentesis w imaging
--- NOTE | 2022-01-19 11:19 | Pulmonology Progress Note ---
Date of Service January 19, 2022 Assessment & Plan (1) Malignant pleural effusion: Plan: Thoracentesis completed today with 1200 mL of pleural fluid evacuated from the right hemithorax. Fluid appeared to be bloody. Possible hemothorax given the history of fall. Patient is also on aspirin and Plavix. Catheter was removed as the patient was having discomfort. Post chest x-ray reviewed with improvement in aeration of the right lung. Can consider repeat thoracentesis or Pleurx catheter placement tomorrow based on symptoms. Pleural fluid cultures and cytology sent. CBC ordered as well given the presence of what appears to be blood in the pleural space. Would hold on any further heparin administration at this time. (2) Acute dyspnea: Plan: Likely multifactorial from her malignancy, pleural effusions and possibly her pulmonary embolism. (3) Metastatic lung cancer (metastasis from lung to other site): Plan: Under the care of oncology. Would recommend palliative care consultation. (4) Pulmonary emboli: Plan: Unclear whether these areas represent true pulmonary embolism or tumor emboli. Plan: Thank you for the consult. Please call with questions. Admission and Anticipated Discharge Date Admission Date: January 17, 2022 Subjective Patient with increasing shortness of breath overnight. Heparin was stopped yesterday. She also had increasing coughing. She is status post thoracentesis today. Review of Systems Review of Systems: All systems reviewed & are unremarkable except as noted in HPI & below Physical Exam Physical Exam: Constitutional: Thin and frail appearing woman in no apparent distress. Eyes: Pupils are equal round and reactive to light. Conjunctivae are normal. Anicteric sclera. Ears nose, mouth and throat: No facial deformity Neck: Trachea is midline. Visual inspection is normal. Respiratory: Diminished lung sounds on the right. mild increased wob with exertion. Cardiovascular: Regular rate and rhythm. No murmurs. No edema. Gastrointestinal: Normal bowel sounds, soft, nontender and nondistended. No hepatosplenomegaly noted. Musculoskeletal: No cyanosis. Patient is able to move all extremities. Skin: No rashes, warm dry and intact. Neurologic: No obvious focal neurological deficits seen. Psychiatric: Alert and oriented x3 with a euthymic affect. Results & Data Results & Data ([facility]) Vital Signs (Past 12 Hours) Vital Signs Temp Pulse Pulse Pulse Resp BP Pulse Ox 01/19/22 08:37 78 01/19/22 07:11 36.5 C 82 23 101/65 93 01/19/22 03:40 36.2 C L 84 22 95/60 L 92 01/19/22 01:13 86 25 H 94 01/18/22 23:16 36.6 C 86 20 111/75 91 PG Care Time/CCT Total # of Minutes Spent Total Time Spent with Patient: Total time spent is greater than 50% in coordination of care (as documented) at patient's floor/unit and/or counseling patient: Coding Level of Care Code 35262 Subseq Hosp Care Lvl 3 Diagnoses Malignant pleural effusion J91.0 Acute dyspnea R06.00 Metastatic lung cancer (metastasis from lung to other site) C34.90 Pulmonary emboli I26.99
[2022-01-19 11:32] LABS: Hematocrit (blood only) 26.9 % (37-47); Hemoglobin 8.1 g/dL (12.0-16.0); Immature Granulocytes # (auto) 0.01 K/uL (0.00-0.02); Immature Granulocytes % (auto) 0.2 %; Lymphocytes # (auto) 0.93 K/uL (1.2-3.4); Lymphocytes % (auto) 15.2 %; Mean Corpuscular Hemoglobin 24.6 pg (25-34); Mean Corpuscular Hgb Conc 30.1 g/dL (32-36); Mean Corpuscular Volume 81.8 fL (80-100); Mean Platelet Volume 8.4 fL (7.4-10.4); Monocytes # (auto) 0.26 K/uL (0.11-0.59); Monocytes % (auto) 4.3 %; Neutrophils % (auto) 80.3 %; Platelet Count 476 K/uL (130-400); RDW Coefficient of Variation 17.4 % (11.5-14.5); RDW Standard Deviation 51.7 fL (36.4-46.3); Red Blood Count 3.29 M/uL (4.2-5.4)
[2022-01-19 13:00] LABS: Albumin Level 3.7 gm/dl (3.4-5.0); Bilirubin,Total 0.4 mg/dl (0.2-1.0); Total Protein 6.4 gm/dl (6.0-8.3)
[2022-01-19] MEDS ORDERED: SENNA 8.6 MG TAB PO PRN (13:52)
[2022-01-19 13:53] LABS: Appearance Pleural Fluid BLOODY; Basophils, Fluid 1 %; Color Pleural Fluid RED; Eosinophils, Fluid 10 %; Lymphocytes, Fluid 43 %; Mono,Macrophage,Mesothelial 5 %; Neutrophils, Fluid 41 %; RBC Pleural Fluid (A) 1142000 /uL; Source Pleural Fluid RIGHT LUNG; WBC Pleural Fluid (A) 1445 /uL
[2022-01-19] MEDS: CALCIUM CARBONATE 500 MG CHEWABLE TAB PO PRN (19:41)
--- NOTE | 2022-01-19 22:28 | Hospitalist Progress Note ---
Date of Service January 19, 2022 Assessment & Plan (1) Large pleural effusion: (2) Non-small cell cancer of right lung: (3) Hypoxia: (4) Chronic hyponatremia: (5) CKD (chronic kidney disease), stage III: (6) CAD (coronary artery disease): Plan: This is a 66-year-old female who has significant past medical history of metastatic non-small cell lung carcinoma, CAD with history of PCI and 3 stents to LAD in 2019, COPD, HTN, HLD who presents to ED secondary to worsening shortness of breath x1 month. Hypoxia Large malignant right pleural effusion Metastatic non-small cell lung cancer of R lung Present on with worsening SOB Recent PET in november showed significant progression of tumor burden CTA chest showed large malignant right pleural effusion which occupies 80% of the right hemithorax with significant decrease in right lung aeration and associated mass effect with leftward mediastinal displacement. Status post thoracentesis done today with 1200 mL pleural fluid removed from the right hemithorax that was bloody by pulm Her Oxygen supplement improves after the thoracentesis from 11 L to 3 L nasal cannula oxygen Pleural cx pending Pulm on board Case discussed with pulm that recommended to continue to hold the heparin Can consider repeat thoracentesis or Pleurx catheter placement tomorrow based on symptoms as per pulm Consider palliative care evaluation Continue monitor closely Abnormal Chest CT CT showed possible small pulmonary emboli LLL CTA showed small filling defects within two subsegmental pulmonary arteries within the left lower lobe. These favor small pulmonary emboli although invasion by adjacent tumor could appear similar. Unclear whether these areas represent true pulmonary embolism or tumor emboli. 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 as well as secondary to Lasix use Na 132 today Continue monitor BMP Anemia Hgb dropped to 8.1 Continue to hold heparin drip Continue monitor cbc CKD stage III Creatinine at baseline Monitor CAD with history of PCI and 3 stents in April 2019 HTN HLD On metoprolol, amlodipine, aspirin, Plavix and statin Continue to hold plavix DVT prophylaxis: SCD/teds Continue to hold heparin due to recent thoracentesis Dispo: PCU PCP: Parth Full code Admission and Anticipated Discharge Date Admission Date: January 17, 2022 Subjective Patient was seen and examined for follow-up on shortness of breath Currently lying in bed with no acute distress Earlier today patient had worsening shortness of breath where she was placed on high flow oxygen Status post thoracentesis done today with 1200 mL fluid removed Patient said she feels much better after the thoracentesis and Currently she is on 3 L nasal cannula oxygen Denies any chest pain, palpitation, dizziness and fever Review of Systems Review of Systems: All systems reviewed & are unremarkable except as noted in Subjective Physical Exam Physical Exam: General- No acute distress Head- atraumatic Eyes- PERRL, EOMI, ENT- oropharynx clear Neck- supple, no JVD Lungs- Diminished breath sound Heart- regular rhythm; no murmur Abdomen- normal bowel sounds, soft, nontender Extremities- no calf tenderness Neuro- alert, oriented x 3; PERRL, EOMI; no facial palsy; no dysarthria Skin- warm & dry Results & Data Results & Data ([facility]) Vital Signs (Past 12 Hours) Vital Signs Temp Pulse Pulse Pulse Resp BP Pulse Ox 01/19/22 19:25 36.7 C 86 18 119/74 90 01/19/22 15:21 36.5 C 88 17 103/68 94 01/19/22 15:07 84 01/19/22 11:30 36.4 C L 88 20 91/67 L 100
[2022-01-20 06:52] LABS: Hematocrit (blood only) 26.9 % (37-47); Hemoglobin 8.1 g/dL (12.0-16.0); Mean Corpuscular Hemoglobin 24.4 pg (25-34); Mean Corpuscular Hgb Conc 30.1 g/dL (32-36); Mean Platelet Volume 8.7 fL (7.4-10.4); Platelet Count 505 K/uL (130-400); RDW Coefficient of Variation 17.3 % (11.5-14.5); RDW Standard Deviation 51.2 fL (36.4-46.3); Red Blood Count 3.32 M/uL (4.2-5.4); White Blood Count 9.17 K/uL (4.8-10.8)
[2022-01-20 07:16] LABS: BUN Creatinine Ratio 15.9 (10-20); Calcium 8.4 mg/dl (8.5-10.1); Creatinine Clr Calc Pharmacy 51.1 ml/min; Est GFR (African American) 86.4 ml/min; Est GFR (Non-African American) 74.6 ml/min; Potassium 4.2 mmol/L (3.5-5.1)
[2022-01-20] MEDS: BENZONATATE 100 MG CAPSULE PO PRN ×2 (07:19→17:16)
[2022-01-20] MEDS: CALCIUM CARBONATE 500 MG CHEWABLE TAB PO PRN (07:25)
[2022-01-20] MEDS: ASPIRIN 81 MG ECTAB PO SCH (08:44)
[2022-01-20] MEDS: FOLIC ACID 1 MG TAB PO SCH (08:44)
[2022-01-20] MEDS: CETIRIZINE HCL 10 MG TABLET PO SCH (08:44)
--- NOTE | 2022-01-20 09:01 | XRay Report ---
XR chest 1V portable CLINICAL HISTORY: follow up effusion. Cough COMPARISON STUDY: 01/19/2022 TECHNIQUE: 1 view of the chest FINDINGS: Single frontal view of the chest demonstrates the cardiomediastinal silhouette to be within normal li mits. The patient is again status post right thoracentesis with no evidence for pneumothorax. Residua l right pleural effusion is present along with fluid loculated along the right lateral chest wall. De creased alveolar opacities seen involving the right midlung. There is no change in left lung opacitie s. There is no evidence for vascular congestion. There is no acute osseous pathology. IMPRESSION: 1. No significant interval change in residual right pleural effusion with no evidence for pneumothora x. 2. Decrease alveolar opacities involving the right lung. 3. No change in alveolar opacities of the left lung. ACT 112: Negative or not required by law. Electronically signed by: Jasmeet Hathaway M.D. 01/20/2022 8:58 AM
[2022-01-20] MEDS: traMADol HCL 50 MG TABLET PO PRN (09:14)
[2022-01-20] MEDS: HEPARIN 100 UNIT/ML 5ML FLUSH FLUSH PRN (09:36)
--- NOTE | 2022-01-20 12:27 | Pulmonology Progress Note ---
Date of Service January 20, 2022 Assessment & Plan (1) Malignant pleural effusion: (2) Acute dyspnea: (3) Pulmonary emboli: (4) Metastatic lung cancer (metastasis from lung to other site): Plan: Impression: 66-year-old female with advanced non-small cell lung cancer admitted with bloody effusion status post thoracentesis yesterday. Cytology is pending. She is better but continues to have evidence of cough. She also had evidence of subsegmental PEs. Recommendations: 1. Pleural effusion: Await cytology. Had brief discussion with the patient regarding options at this point time to include serial thoracentesis versus Pleurx catheter placement. The patient becomes quite tearful. She wants to think about it and discuss with family. We will repeat chest x-ray tomorrow to try and get some idea of rate of temporal reaccumulation of fluid. If it accumulates rapidly, Pleurx catheter may be appropriate and she can follow-up in the outpatient setting with her [facility] medical sales. 2. PE: Currently on anticoagulation. Given that this is associated with malignancy, would favor lifelong anticoagulation. Anticoagulation would need to be held for invasive pleural procedures. 3. Hypoxemic respiratory failure: Secondary to malignant pleural effusion as well as large burden of parenchymal lung disease/metastatic disease: Continue supplemental oxygen. 4. Agree with plans for palliative care consult. Consideration for hospice might be appropriate. The patient apparently has had her chemotherapy on hold to "give her a break". Based on the appearance of her CT scan, unclear if she is having a clinical response which would warrant continued chemotherapy. 5. Cough: We will intensify the patient's antitussive regiment. Will follow with you Admission and Anticipated Discharge Date Admission Date: January 17, 2022 Subjective Patient seen and examined. EMR reviewed. Discussed with off going medical sales. The patient states that she feels her breathing is better after the thoracentesis yesterday but she is still coughing. She is not expectorating any phlegm. She denies any pain at the thoracentesis site. Review of Systems Review of Systems: All systems reviewed & are unremarkable except as noted in Subjective Physical Exam Physical Exam: General- No acute distress Head- atraumatic Eyes- PERRL, EOMI, ENT- oropharynx clear Neck- supple, no JVD Lungs- Diminished breath sound Heart- regular rhythm; no murmur Abdomen- normal bowel sounds, soft, nontender Extremities- no calf tenderness Neuro- alert, oriented x 3; PERRL, EOMI; no facial palsy; no dysarthria Skin- warm & dry Results & Data Results & Data ([facility]) Vital Signs (Past 12 Hours) Vital Signs Temp Pulse Resp BP Pulse Ox 01/20/22 11:19 36.5 C 104 H 16 98/70 L 97 01/20/22 07:49 36.4 C L 90 16 97/70 L 92 01/20/22 03:34 36.5 C 93 H 18 112/71 96 Laboratory Results 01/20/22 06:21 01/20/22 06:21 Diagnostic Findings Post procedure film independently reviewed. Tenting of the diaphragm on the left is noted which is chronic. Patchy parenchymal opacities throughout both lung leigh. Loculated fluid collection at the lateral aspect of the right hemithorax with blunting of the costophrenic angle. PG Care Time/CCT Total # of Minutes Spent Total Time Spent with Patient: Total time spent is greater than 50% in coordination of care (as documented) at patient's floor/unit and/or counseling patient: Coding Level of Care Code 88769 Subseq Hosp Care Lvl 3 Diagnoses Malignant pleural effusion J91.0 Acute dyspnea R06.00 Pulmonary emboli I26.99 Metastatic lung cancer (metastasis from lung to other site) C34.90
[2022-01-20] MEDS ORDERED: HYDROcodone/HOMATROPINE SYRUP 5MG/1.5MG 5ML UDP PO PRN (12:37)
[2022-01-20] MEDS: HYDROcodone/HOMATROPINE SYRUP 5MG/1.5MG 5ML UDP PO PRN ×2 (12:53→23:06)
--- NOTE | 2022-01-20 13:06 | Palliative Care Consultation ---
Date of Consultation January 20, 2022 Assessment & Plan (1) Palliative care encounter: Ms. Patrick is a 66 year old female who presented to the [facility] with SOB that was occurring over the past month. She has an unfortunate diagnosis of metastatic non small cell lung cancer in December 2018. She follows with Dr. Carr and has underwent numerous chemotherapy treatments over the past few years. Per pt she was started on Alimta, carboplatin, Keytruda in January 2019 last cycle received on February 2019. She couldn't receive next treatment because of worsening kidney function.Gemcitabine was given weekly x2 started in April 2019 but stopped because of worsening renal function. She continued reduced gemcitabine with last chemotherapy received October 2019. No treatment given between October 2019 and February 2020. She received Abraxane between March 2020 and February 2021. She received nivolumab single agent every 2 weeks from February 2021 to May 2021, which was stopped due to disease progression. Then received Alimta single agent every 3 weeks from that point till October 2021. Currently considering navelbine to start next week per [facility]. Unfortunately, her most recent PET scan in November revealed significant tumor burden. She had a thoracentesis performed with 1200mL removed yesterday. Additional PMH includes: CAD PCU s/p three stents in 9, COPD, HTN, and HLD. She is a non smoker. Palliative Medicine was consulted to discuss overall goals of care. I met with the patient in room 219. She was lying on her side and appeared uncomfortable. She has had a cough that has been quite challenging for her. We talked about her disease progression and she knows that things are not moving in the right direction. She was tearful throughout our conversation and we discussed hospice for which she was receptive to. I was able to talk with the patients , Raji, who stated that up to this point that she has been doing relatively well. She sees Dr. Carr and had her last chemotherapy a little over a month ago. At that time, she had a PET scan in November which revealed tumor progression. Due to her fragility, her chemo regimen was due to be reduced. I was able to talk with Dr. Carr on the phone who stated that due to her fragility and tumor progression noted that he is in support of a hospice transition as further chemotherapy would be more toxic than her body can handle, even at reduced amounts and would certainly lead to future hospitalizations. I did discuss this in detail with the patients on the phone. He said that his ex- was the director of a hospice in [place] so he is quite familiar with hospice and 'knew this was coming'. Both him and his are receptive to returning home with hospice services. The above was discussed with the hospitalist, Dr. Raymond and also the case therapist Omid YE. (2) Metastatic lung cancer (metastasis from lung to other site): (3) Acute dyspnea: (4) Cough: Consistent. Non-productive at times. Started on Hycodan. History of Present Illness Reason for Consultation: goals of care Requesting Physician: Dr. Raymond Attending Physician: Harrison Raymond MD History of Present Illness Ms. Patrick is a 66 year old female who presented to the [facility] with SOB that was occurring over the past month. She has an unfortunate diagnosis of metastatic non small cell lung cancer in December 2018. She follows with Dr. Carr and has underwent numerous chemotherapy treatments over the past few years. Per pt she was started on Alimta, carboplatin, Keytruda in January 2019 last cycle received on February 2019. She couldn't receive next treatment because of worsening kidney function.Gemcitabine was given weekly x2 started in April 2019 but stopped because of worsening renal function. She continued reduced gemcitabine with last chemotherapy received October 2019. No treatment given between October 2019 and February 2020. She received Abraxane between March 2020 and February 2021. She received nivolumab single agent every 2 weeks from February 2021 to May 2021, which was stopped due to disease progression. Then received Alimta single agent every 3 weeks from that point till October 2021. Currently considering navelbine to start next week per [facility]. Unfortunately, her most recent PET scan in November revealed significant tumor burden. She had a thoracentesis performed with 1200mL removed yesterday. Additional PMH includes: CAD PCU s/p three stents in `9, COPD, HTN, and HLD. She is a non smoker. Palliative Medicine was consulted to discuss overall goals of care. Please see A/P for further details. Thanks for involving palliative medicine with this patient. Allergies Allergy/AdvReac Type Severity Reaction Status Date / Time barley Allergy Intermediate INDIGESTION/GI Verified 01/17/22 15:30 SYMPTOMS chocolate flavor Allergy Intermediate HEADACHES Verified 01/17/22 15:30 WITH LARGE QUANTITIES horse dander Allergy Intermediate ITCHING Verified 01/17/22 15:30 mold Allergy Intermediate ITCHING/DIFFICULT Verified 01/17/22 15:30 BREATHING Penicillins Allergy Intermediate Hives Verified 01/17/22 15:30 cheese AdvReac Intermediate CONSTIPATION/GI Verified 01/17/22 15:30 SYMPTOMS Home Medications Medication Instructions Recorded Confirmed Type ondansetron HCl 8 mg tablet 8 mg PO Q8H PRN 05/27/19 01/17/22 History aspirin 81 mg tablet,delayed 81 mg PO QAM #30 tab 05/30/19 01/17/22 Rx release (Ecotrin Low Strength) amlodipine 5 mg tablet 5 mg PO DAILY 01/17/22 01/17/22 History cetirizine 10 mg tablet (Zyrtec) 10 mg PO DAILY 01/17/22 01/17/22 History clopidogrel 75 mg tablet 75 mg PO DAILY 01/17/22 01/17/22 History folic acid 1 mg tablet 1 mg PO DAILY 01/17/22 01/17/22 History furosemide 20 mg tablet 20 mg PO DAILY 01/17/22 01/17/22 History metoprolol succinate 100 mg 100 mg PO DAILY 01/17/22 01/17/22 History tablet,extended release 24 hr Patient History Medical History Acute dyspnea Allergic rhinitis Asthma HAS NOT USED INHALER SINCE PRESCRIBED CAD (coronary artery disease) Chronic cough Cough Cough Dyslipidemia, goal LDL below 130 GERD (gastroesophageal reflux disease) Herpes simplex viral infection Malignant pleural effusion Mediastinal adenopathy Metastatic lung cancer (metastasis from lung to other site) Migraine HX OF 2009 Non-small cell cancer of right lung Palliative care encounter Pulmonary emboli Pulmonary nodules TMJ (temporomandibular joint disorder) Surgical History History of 1973 History of tooth extraction Family History Mother Family history of diabetes mellitus Heart disease Father Coronary heart disease Social History Smoking Status: Never smoker Second Hand Exposure: No; Hx Alcohol Use: No Hx Substance Use: No Preferred Language: Georgian Communication Ability: Effective Flow Coordinator Required: No Beliefs That Will Affect Care: None marital status: Current Living Situation: Spouse and Family Feels Safe at Home: Yes Safety Concerns: Feels Safe At This Time Assistive Devices: Oxygen - Continuous Review of Systems Review of Systems: Gibbon System Assessment Scale: Pain: 1/3 SOB: 2/3 Cough: 2/3 Tiredness: 2/3 Lack of Appetite: 1/3 Palliative Performance Scale: 30% Physical Exam Constitutional: + acute distress, + cachectic, + frail appearing, cooperative and comfortable ENMT: Mouth: + dry oral mucous membranes Respiratory: + uses accessory muscles and + cough Cardiovascular: Rate/Rhythm: regular rate, regular rhythm and + tachycardic Extremities: normal capillary refill Gastrointestinal (Abdomen): Inspection/Auscultation: abdomen normal to inspection Percussion/Palpation: abdomen soft Skin: + dry skin and + pallor Psychiatric: Orientation: alert and oriented x 3 Results & Data ([facility]) Vital Signs (Past 12 Hours) Vital Signs Temp Pulse Resp BP Pulse Ox 01/20/22 11:19 36.5 C 104 H 16 98/70 L 97 01/20/22 07:49 36.4 C L 90 16 97/70 L 92 01/20/22 03:34 36.5 C 93 H 18 112/71 96 PG Care Time/CCT Total # of Minutes Spent Total Time Spent with Patient: Total time spent is greater than 50% in coordination of care (as documented) at patient's floor/unit and/or counseling patient: 100 minutes Coding Level of Care Code 73812 Inpt Consult Level 3 Diagnoses Palliative care encounter Z51.5 Metastatic lung cancer (metastasis from lung to other site) C34.90 Acute dyspnea R06.00 Cough R05.9 Time Spent (min) 100
--- NOTE | 2022-01-20 23:20 | Hospitalist Progress Note ---
Date of Service January 20, 2022 Assessment & Plan (1) Large pleural effusion: (2) Non-small cell cancer of right lung: (3) Hypoxia: (4) Chronic hyponatremia: (5) CKD (chronic kidney disease), stage III: (6) CAD (coronary artery disease): Plan: This is a 66-year-old female who has significant past medical history of metastatic non-small cell lung carcinoma, CAD with history of PCI and 3 stents to LAD in 2019, COPD, HTN, HLD who presents to ED secondary to worsening shortness of breath x1 month. Hypoxia Large malignant right pleural effusion Metastatic non-small cell lung cancer of R lung Present on with worsening SOB Recent PET in november showed significant progression of tumor burden CTA chest showed large malignant right pleural effusion which occupies 80% of the right hemithorax with significant decrease in right lung aeration and associated mass effect with leftward mediastinal displacement. Status post thoracentesis done today with 1200 mL pleural fluid removed from the right hemithorax that was bloody by pulm Her Oxygen supplement improves after the thoracentesis from 11 L to 3 L nasal cannula oxygen Pleural cx no growth Pulm on board Case discussed with pulm that recommended to continue to hold the heparin Can consider repeat thoracentesis or Pleurx catheter placement tomorrow based on symptoms as per pulm CXR showed No significant interval change in residual right pleural effusion with no evidence for pneumothorax.ue monitor closely Paliative care on board for goal of care Abnormal Chest CT CT showed possible small pulmonary emboli LLL CTA showed small filling defects within two subsegmental pulmonary arteries within the left lower lobe. These favor small pulmonary emboli although invasion by adjacent tumor could appear similar. Unclear whether these areas represent true pulmonary embolism or tumor emboli. Will consider to resume IV herhim Chronic hyponatremia Likely multifactorial Has been fluctuating since September from 126-132 Possibly in setting of SIADH due to lung cancer as well as secondary to Lasix use Na 132 today Continue monitor BMP Anemia Hgb dropped to 8.1 Continue to hold heparin drip Continue monitor cbc CKD stage III Creatinine at baseline Monitor CAD with history of PCI and 3 stents in April 2019 HTN HLD On metoprolol, amlodipine, aspirin, Plavix and statin Continue to hold plavix DVT prophylaxis: SCD/teds Continue to hold heparin due to recent thoracentesis Dispo: PCU PCP: Parth Full code Admission and Anticipated Discharge Date Admission Date: January 17, 2022 Subjective Patient was seen and examined for follow-up on shortness of breath Currently lying in bed with no acute distress Pt said that her breathing slightly better compare to yesterday She said whenever she cough arthur she had tenderness Denies any fever, palpitation, dizziness and fever Review of Systems Review of Systems: All systems reviewed & are unremarkable except as noted in Subjective Physical Exam Physical Exam: General- No acute distress Head- atraumatic Eyes- PERRL, EOMI, ENT- oropharynx clear Neck- supple, no JVD Lungs- Diminished breath sound Heart- regular rhythm; no murmur Abdomen- normal bowel sounds, soft, nontender Extremities- no calf tenderness Neuro- alert, oriented x 3; PERRL, EOMI; no facial palsy; no dysarthria Skin- warm & dry Results & Data Results & Data ([facility]) Vital Signs (Past 12 Hours) Vital Signs Temp Pulse Pulse Resp BP Pulse Ox 01/20/22 19:49 36.8 C 103 H 18 138/88 95 01/20/22 15:15 36.4 C L 96 H 15 109/74 95 01/20/22 11:19 36.5 C 104 H 16 98/70 L 97
[2022-01-21] MEDS: HYDROcodone/HOMATROPINE SYRUP 5MG/1.5MG 5ML UDP PO PRN (07:14)
[2022-01-21] MEDS: CALCIUM CARBONATE 500 MG CHEWABLE TAB PO PRN (07:14)
[2022-01-21] MEDS: BENZONATATE 100 MG CAPSULE PO PRN (07:14)
[2022-01-21] MEDS: ASPIRIN 81 MG ECTAB PO SCH (07:43)
[2022-01-21] MEDS: CETIRIZINE HCL 10 MG TABLET PO SCH (07:43)
--- NOTE | 2022-01-21 09:03 | Pulmonology Progress Note ---
Date of Service January 21, 2022 Assessment & Plan (1) Malignant pleural effusion: (2) Acute dyspnea: (3) Pulmonary emboli: (4) Metastatic lung cancer (metastasis from lung to other site): Plan: Impression: 66-year-old female with advanced non-small cell lung cancer admitted with bloody effusion status post thoracentesis yesterday. Cytology is pending. She is better but continues to have evidence of cough. She also had evidence of subsegmental PEs. Recommendations: 1. Pleural effusion: Await cytology. Given the fairly rapid reaccumulation and symptomatic benefit, I offered the patient Pleurx catheter placement on the right. She is agreeable. We will try and set this up later today. Case management will need to set up with home health or hospice to facilitate drainage at home on a daily or every other day basis. Heparin is on hold. 2. PE: Given that this is associated with malignancy, would favor lifelong anticoagulation. Heparin on hold for Pleurx catheter placement today. Okay to start oral anticoagulants in the next 24 to 48 hours. 3. Hypoxemic respiratory failure: Secondary to malignant pleural effusion as well as large burden of parenchymal lung disease/metastatic disease: Continue supplemental oxygen. 4. Plans to pursue hospice in the outpatient setting 5. Cough: Continue hydrocodone as needed. We will see what relief she gets with the Pleurx catheter. Will follow with you Admission and Anticipated Discharge Date Admission Date: January 17, 2022 Subjective Patient seen and examined. EMR reviewed. Palliative care notes were reviewed. The patient states that her cough is slightly better this morning. Unclear if the hydrocodone cough syrup is beneficial or not. She met with palliative care and there appear to be working progress to set the patient up with home hospice. Its unlikely she is good to be a candidate for additional chemotherapy in the future. She definitely states that she felt better after the initial thoracentesis. She is interested in a Pleurx catheter if home health can be arranged to assist at home. Review of Systems Review of Systems: All systems reviewed & are unremarkable except as noted in Subjective Physical Exam Physical Exam: General- No acute distress Head- atraumatic Eyes- PERRL, EOMI, ENT- oropharynx clear Neck- supple, no JVD Lungs- Diminished breath sound Heart- regular rhythm; no murmur Abdomen- normal bowel sounds, soft, nontender Extremities- no calf tenderness Neuro- alert, oriented x 3; PERRL, EOMI; no facial palsy; no dysarthria Skin- warm & dry Results & Data Results & Data ([facility]) Vital Signs (Past 12 Hours) Vital Signs Temp Pulse Pulse Pulse Resp BP Pulse Ox 01/21/22 07:09 36.8 C 110 H 22 124/80 90 01/21/22 03:28 36.5 C 103 H 17 96/67 L 95 01/20/22 23:22 97 H 01/20/22 23:15 36.7 C 71 18 103/72 91 Laboratory Results 01/20/22 06:21 01/20/22 06:21 Diagnostic Findings Chest x-ray from today was reviewed which demonstrates reaccumulation of the pleural fluid on the right. Extensive parenchymal densities noted. PG Care Time/CCT Total # of Minutes Spent Total Time Spent with Patient: Total time spent is greater than 50% in coordination of care (as documented) at patient's floor/unit and/or counseling patient: Coding Level of Care Code 52205 Subseq Hosp Care Lvl 3 Diagnoses Malignant pleural effusion J91.0 Acute dyspnea R06.00 Pulmonary emboli I26.99 Metastatic lung cancer (metastasis from lung to other site) C34.90
--- NOTE | 2022-01-21 09:14 | XRay Report ---
XR chest 1V portable CLINICAL HISTORY: Follow-up pleural effusion. COMPARISON STUDY: No previous studies for comparison. TECHNIQUE: 1 view of the chest FINDINGS: Single frontal view of the chest demonstrates the cardiomediastinal silhouette to be within normal li mits. Compared to previous examination, there is increasing right pleural effusion present. Increasin g opacity is also seen involving the right lung which is most likely related to pleural fluid within the fissure as well. There is no evidence for pneumothorax. The appearance of the left lung remains unchanged. Minimal blunting of left costophrenic angle is pre sent. There is no evidence for vascular congestion. There is no acute osseous pathology. IMPRESSION: 1. Interval increase in right pleural effusion and right lung opacity. ACT 112: Negative or not required by law. Electronically signed by: Jasmeet Hathaway M.D. 01/21/2022 9:12 AM
--- NOTE | 2022-01-21 14:43 | Procedure Note ---
Procedure Note Date of Service January 21, 2022 Note Procedure: Ultrasound guided right Pleurx catheter placement. Indication: Recurrent malignant effusion Consent: Signed by patient and verified with timeout prior to procedure. Anesthesia: 10 mL's 1% lidocaine without epinephrine locally. Watch Inspector: Dr. Munir Stone Procedure: Appropriate radiographic films had been reviewed prior to commencement of the procedure. Risks and benefits were again discussed with patient consent was verified. The patient was placed in the right side up lateral decubitus position. Limited thoracic ultrasound was performed which revealed a moderate to large right-sided effusion with compressive atelectasis. Site appropriate for the pleurotomy was marked. Skin was prepped and draped in normal sterile fashion. Using 1% lidocaine, the skin and soft tissues down to the pleura were anesthetized. A tract extending approximately 8 to 10 cm anteriorly from the pleurotomy site was also infiltrated and a site appropriate for the exit of the Pleurx catheter was marked. A 1 cm skin julio cesar was made at the posterior site. The catheter over the needle apparatus was advanced into the pleural space with pleural fluid easily aspirated. A wire was passed through the catheter after the needle was removed. The Pleurx catheter was then loaded on the tunneling device. A 1cm skin incision was made at the anterior catheter exit site. The tunneling device with the attached Pleurx catheter were passed from the anterior incision back to the posterior incision until the cuff of the Pleurx catheter resided within the subcutaneous tissues. The catheter was palpated along its course and no kinking was identified. Serial dilatation was then performed over the wire with the pull-away catheter being left in place. The Pleurx was removed from the tunneling mechanism and advanced through the peel-away catheter. The catheter sheath was then peeled back as the Pleurx catheter was advanced into the pleural space. The Pleurx catheter course was palpated and no kinks were felt. It was attached to wall suction and a total of 700mL's was removed. Using 1-0 silk, 2 stitches were placed at the exit Pleurx site and the catheter secured in place. 2 small silk sutures were used to close the posterior incision. A sterile dressing was applied. The patient tolerated the procedure well without obvious complication. Post procedure x-ray is pending. Estimated blood loss: Less than 10 mL's Coding CPT Codes Pulmonary/Thoracic - Pulmonary and Thoracic: 95279 Insert pleural cathereter w/cuff ([id number]) Pulmonary/Thoracic - Pulmonary and Thoracic: 23121 US, Chest, real time with imaging documentation ([id number]) [facility] [place] Procedure Codes (Charges) Pulmonary/Thoracic Procedure 1: Pulmonary and Thoracic: 98974 Insert pleural cathereter w/cuff Procedure 2: Pulmonary and Thoracic: 96307 US, Chest, real time with imaging documentation
--- NOTE | 2022-01-21 15:30 | XRay Report ---
XR chest 1V portable at 3:09 PM CLINICAL HISTORY: R pleurex placement. Evaluate for pneumothorax. Pleural effusion COMPARISON STUDY: 01/21/2022 at 6:54 AM TECHNIQUE: 1 view of the chest FINDINGS: Single frontal view of the chest demonstrates the cardiomediastinal silhouette to be within normal li mits. Compared to the previous examination, a right-sided Pleurx catheter has been placed with decrea sed right pleural effusion. However, there has been interval development of an approximately 25-30% r ight-sided pneumothorax. Bilateral lung opacities are again seen. There is again minimal blunting of the left costophrenic ang le. There is no evidence for vascular congestion. There is no acute osseous pathology. IMPRESSION: 1. Status post right Pleurx catheter placement with decreased right pleural effusion. 2. However, there has been interval development of an approximately 25-30% right-sided pneumothorax. Dr. Stone was contacted with these findings via tiger text. ACT 112: Negative or not required by law. Electronically signed by: Jasmeet Hathaway M.D. 01/21/2022 3:29 PM
[2022-01-21] MEDS: traMADol HCL 50 MG TABLET PO PRN (18:22)
--- NOTE | 2022-01-21 21:10 | Hospitalist Progress Note ---
Date of Service January 21, 2022 Assessment & Plan (1) Large pleural effusion: (2) Non-small cell cancer of right lung: (3) Hypoxia: (4) Chronic hyponatremia: (5) CKD (chronic kidney disease), stage III: (6) CAD (coronary artery disease): Plan: This is a 66-year-old female who has significant past medical history of metastatic non-small cell lung carcinoma, CAD with history of PCI and 3 stents to LAD in 2018, COPD, HTN, HLD who presents to ED secondary to worsening shortness of breath x1 month. Hypoxia Large malignant right pleural effusion Metastatic non-small cell lung cancer of R lung Present on with worsening SOB Recent PET in november showed significant progression of tumor burden CTA chest showed large malignant right pleural effusion which occupies 80% of the right hemithorax with significant decrease in right lung aeration and associated mass effect with leftward mediastinal displacement. Pulm on board Status post thoracentesis done today with 1200 mL pleural fluid removed from the right hemithorax that was bloody by pulm Her Oxygen supplement improves after the thoracentesis from 11 L to 3 L nasal cannula oxygen S/P PleurX catheter placement today CXR showed Status post right Pleurx catheter placement with decreased right pleural effusion. However, there has been interval development of an approximately 25-30% right-sided pneumothorax. Pleural cx no growth Case discussed with pulm that recommended to continue to hold the heparin Palliative care on board for goal of care- Plan is to transition to home enrollment manager is aware Abnormal Chest CT CT showed possible small pulmonary emboli LLL CTA showed small filling defects within two subsegmental pulmonary arteries within the left lower lobe. These favor small pulmonary emboli although invasion by adjacent tumor could appear similar. Unclear whether these areas represent true pulmonary embolism or tumor emboli. 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 as well as secondary to Lasix use Na 132 today Continue monitor BMP Severe protein-calorie malnutrition BMI 18.1 Encourage to increase protein intake Anemia Hgb dropped to 8.1 Continue to hold heparin drip Continue monitor cbc CKD stage III Creatinine at baseline Monitor CAD with history of PCI and 3 stents in April 2019 HTN HLD On metoprolol, amlodipine, aspirin, Plavix and statin Continue to hold plavix DVT prophylaxis: SCD/teds Continue to hold heparin due to recent pleurX catheter placement Dispo: PCU PCP: Parth Full code Admission and Anticipated Discharge Date Admission Date: January 17, 2022 Subjective Patient was seen and examined for follow-up on shortness of breath Currently lying in bed with no acute distress Pt said that her breathing feels slightly better She said that she is coughing less She wants to go home on hospice Denies any fever, palpitation, dizziness and fever Review of Systems Review of Systems: All systems reviewed & are unremarkable except as noted in Subjective Physical Exam Physical Exam: General- No acute distress Head- atraumatic Eyes- PERRL, EOMI, ENT- oropharynx clear Neck- supple, no JVD Lungs- Diminished breath sound Heart- regular rhythm; no murmur Abdomen- normal bowel sounds, soft, nontender Extremities- no calf tenderness Neuro- alert, oriented x 3; PERRL, EOMI; no facial palsy; no dysarthria Skin- warm & dry Results & Data Results & Data ([facility]) Vital Signs (Past 12 Hours) Vital Signs Temp Pulse Pulse Resp BP Pulse Ox 01/21/22 19:20 36.6 C 116 H 18 94/68 L 93 01/21/22 15:46 36.7 C 120 H 19 117/75 91 01/21/22 14:45 112 H 20 113/74 96 01/21/22 11:41 36.5 C 115 H 21 104/71 92
[2022-01-22 07:26] LABS: Hematocrit (blood only) 28.2 % (37-47); Hemoglobin 8.4 g/dL (12.0-16.0); Mean Corpuscular Hemoglobin 23.9 pg (25-34); Mean Corpuscular Hgb Conc 29.8 g/dL (32-36); Mean Corpuscular Volume 80.3 fL (80-100); Mean Platelet Volume 4.6 fL (7.4-10.4); Platelet Count 438 K/uL (130-400); Red Blood Count 3.51 M/uL (4.2-5.4); White Blood Count 8.19 K/uL (4.8-10.8)
[2022-01-22 07:37] LABS: BUN Creatinine Ratio 12.5 (10-20); Calcium 8.4 mg/dl (8.5-10.1); Creatinine Clr Calc Pharmacy 52.1 ml/min; Est GFR (Non-African American) 76.8 ml/min; Potassium 4.1 mmol/L (3.5-5.1)
[2022-01-22] MEDS: BENZONATATE 100 MG CAPSULE PO PRN ×2 (08:03→21:36)
[2022-01-22] MEDS: CALCIUM CARBONATE 500 MG CHEWABLE TAB PO PRN ×2 (08:03→21:36)
[2022-01-22] MEDS: ASPIRIN 81 MG ECTAB PO SCH (08:03)
[2022-01-22] MEDS: CETIRIZINE HCL 10 MG TABLET PO SCH (08:03)
--- NOTE | 2022-01-22 09:13 | Pulmonology Progress Note ---
Date of Service January 22, 2022 Assessment & Plan (1) Malignant pleural effusion: (2) Acute dyspnea: (3) Pulmonary emboli: (4) Metastatic lung cancer (metastasis from lung to other site): Plan: Attending: Dr. Stone Impression: 66-year-old female with advanced non-small cell lung cancer admitted with bloody effusion status post thoracentesis 01/20/2022. Cytology is reported entirely as blood. There was a single three-dimensional aggregate of atypical epithelial cells suspicious for metastatic adenocarcinoma. Patient had Pleurx catheter placed on the right yesterday by Dr. Stone. Pneumothorax appreciated on chest x-ray. Pleurx catheter was drained this morning with improvement to the pneumothorax. Recommendations: 1. Pleural effusion: Single three-dimensional aggregate of atypical epithelial cells suspicious for metastatic adenocarcinoma on the fluid collected 01/20/2022. Pleurx catheter placement on the right 01/21/2022. Pleurx catheter was accessed today and drained. I was able to drain a significant amount of air with improvement to the pneumothorax appreciated on the postprocedural chest x-ray. A total of 700 cc of serosanguineous fluid was evacuated today. Case management contacted today paperwork placed on chart for Pleurx catheter supplies. Patient expected to be discharged on hospice. Case management working on facilitation of drainage at home on a daily or every other day basis. 2. PE: Given that this is associated with malignancy, would favor lifelong anticoagulation. Okay to resume oral anticoagulants today. 3. Hypoxemic respiratory failure: Secondary to malignant pleural effusion as well as large burden of parenchymal lung disease/metastatic disease: Continue supplemental oxygen. 4. Plans to pursue hospice in the outpatient setting with possible discharge today 5. Cough: Continue hydrocodone as needed. We will see what relief she gets with the Pleurx catheter. The pulmonary service will sign off today. Please feel free to call with any questions or concerns. Admission and Anticipated Discharge Date Admission Date: January 17, 2022 Supervising Physician Co-Signing Physician Notes Seen and examined. Imaging reviewed. discussed with JOHN and agree with AP as noted. Pleurex drained again today with improvement in pneumothorax. Plans to discharge to hospice. recommend daily drainage. OK to restart anticoagulation if needed. 20 min in medical decision making. Will sign off. Call if questions. Subjective Attending: Dr. Stone This is a 66-year-old female with known adenocarcinoma of the lung with metastasis presents with progressive shortness of breath with dry nonproductive cough secondary to right-sided pleural effusion. A Port-A-Cath was placed on the right side by Dr. Stone yesterday. Patient was noted to have pneumothorax on the right after the procedure. The patient had no acute distress. She had no distress this morning the time that I saw her in room 219. We did drain the pleural fluid as well as evacuate air with a Pleurx catheter kit. Patient tolerated well. Please refer to the procedure note. Patient denies any acute shortness of breath today. She has some cough and discomfort but no specific pain at the Pleurx catheter insertion site. She has no fever or chills. She has no other acute complaints at this time. Review of Systems Review of Systems: A total of 10 systems was reviewed with no other findings other than listed above in the HPI. Physical Exam Physical Exam: GENERAL : No acute distress. Cachectic EYES: No icterus, gaze conjugate NOSE: No evidence of epistaxis MOUTH: No lesions or candidiasis NECK: Supple LUNGS: Fine bibasilar crackles. Breath sounds equal. No respiratory distress. No rhonchi or bronchospasm appreciated. CHEST: Left Mediport accessed. Dressing in place. HEART: Regular, rate controlled ABDOMEN: Soft, NT, ND, BS Present EXTREMITIES: No LE edema, pedal pulses intact and equal bilaterally. NEURO: A&OX3. Behavior appropriate. Results & Data Results & Data ([facility]) Vital Signs (Past 12 Hours) Vital Signs Temp Pulse Pulse Pulse Resp BP Pulse Ox 01/22/22 07:46 36.5 C 109 H 16 114/79 95 01/22/22 04:02 36.7 C 95 H 18 96/66 L 95 01/21/22 23:51 36.8 C 95 H 18 94/64 L 94 01/21/22 22:18 95 H Critical Care Results & Data Vital Signs (Past 12 Hours) Vital Signs Temp Pulse Pulse Pulse Resp BP Pulse Ox 01/22/22 07:46 36.5 C 109 H 16 114/79 95 01/22/22 04:02 36.7 C 95 H 18 96/66 L 95 01/21/22 23:51 36.8 C 95 H 18 94/64 L 94 01/21/22 22:18 95 H Lab & Micro Results (Past 24 Hours) RBC 3.51 M/uL (4.2-5.4) L 01/22/22 WBC 8.19 K/uL (4.8-10.8) 01/22/22 Hgb 8.4 g/dL (12.0-16.0) L 01/22/22 Hct 28.2 % (37-47) L 01/22/22 MCV 80.3 fL (80-100) 01/22/22 MCH 23.9 pg (25-34) L 01/22/22 MCHC 29.8 g/dL (32-36) L 01/22/22 RDW Standard Deviation 50.0 fL (36.4-46.3) H 01/22/22 RDW Coefficient of Variation 17.0 % (11.5-14.5) H 01/22/22 Plt Count 438 K/uL (130-400) H 01/22/22 MPV 4.6 fL (7.4-10.4) L 01/22/22 Na 133 mmol/L (136-145) L 01/22/22 K 4.1 mmol/L (3.5-5.1) 01/22/22 Cl 99 mmol/L (98-107) 01/22/22 CO2 27 mmol/L (21-32) 01/22/22 Anion Gap 7 (3-11) 01/22/22 BUN 10 mg/dl (6-23) 01/22/22 Creatinine 0.80 mg/dl (0.6-1.2) 01/22/22 Estimated GFR ( Amer) 89.0 ml/min 01/22/22 Estimated GFR (Non-Af Amer) 76.8 ml/min 01/22/22 BUN/Creatinine Ratio 12.5 (10-20) 01/22/22 Glu 87 mg/dl (70-99(Fasting)) 01/22/22 Ca 8.4 mg/dl (8.5-10.1) L 01/22/22 Calcium Level 8.4 mg/dl (8.5-10.1) L 01/22/22 05:53 01/22/22 Diagnostic Findings (Past 24 Hours) Chest X-Ray 01/21/22 14:41 XR chest 1V portable at 3:09 PM CLINICAL HISTORY: R pleurex placement. Evaluate for pneumothorax. Pleural effusion COMPARISON STUDY: 01/21/2022 at 6:54 AM TECHNIQUE: 1 view of the chest FINDINGS: Single frontal view of the chest demonstrates the cardiomediastinal silhouette to be within normal limits. Compared to the previous examination, a right-sided Pleurx catheter has been placed with decreased right pleural effusion. However, there has been interval development of an approximately 25-30% right-sided pneumothorax. Bilateral lung opacities are again seen. There is again minimal blunting of the left costophrenic angle. There is no evidence for vascular congestion. There is no acute osseous pathology. IMPRESSION: 1. Status post right Pleurx catheter placement with decreased right pleural effusion. 2. However, there has been interval development of an approximately 25-30% right-sided pneumothorax. Dr. Stone was contacted with these findings via tiger text. ACT 112: Negative or not required by law. Electronically signed by: Jasmeet Hathaway M.D. 01/21/2022 3:29 PM Chest X-Ray 01/22/22 09:12 SINGLE VIEW CHEST CLINICAL HISTORY: Pleural drain. Pneumothorax. FINDINGS: An AP, portable, upright chest radiograph is compared to study dated 01/21/2022 and correlated with chest CT dated 01/17/2022. A left subclavian central venous infusion port is in place. The cardiomediastinal silhouette is unremarkable noting atherosclerotic calcification of the thoracic aorta. A right pleural drain is in place with the tip projecting over the right apex. There is a small to moderate residual right apical pneumothorax. This has decreased in size from yesterday. There are layering pleural effusions with bibasilar consolidation. These appear similar to yesterday. Multifocal confluent airspace opacities are again seen throughout both lungs. No left-sided pneumothorax is identified. The skeletal structures are osteopenic. The bony thorax is grossly intact. IMPRESSION: 1. A right sided chest tube is in place. There is a small to moderate residual right apical pneumothorax which is decreased in size from yesterday. 2. Layering pleural effusions with dependent consolidation. This is similar to previous. 3. Multifocal confluent airspace opacities are similar to yesterday and likely resents multifocal metastatic disease. Correlate clinically for evidence of a superimposed infectious/inflammatory pneumonitis. ACT 112: Negative or not required by law. Electronically signed by: Dov Naylor M.D. 01/22/2022 9:29 AM I & O Totals 24 Hours 01/21/22 01/22/22 01/23/22 06:59 06:59 06:59 Intake Total 880 / 880 600 / 600 Output Total 400 / 400 650 / 650 Balance 480 / 480 -50 / -50 Cumulative 01/17/22 14:12 thru 01/22/22 08:39 Intake Total 2352.2 Output Total 2100 Balance 252.2 RT Ventilator Mngmt (Last Documented) Ventilator Ordered Settings Respiratory Rate 16 01/22/22 07:46 Ventilator - PT Measurements Respiratory Rate 16 PG Care Time/CCT Total # of Minutes Spent Total Time Spent with Patient: Total time spent is greater than 50% in coordination of care (as documented) at patient's floor/unit and/or counseling patient:30 minutes direct face to face Coding Level of Care Code 44105 Subseq Hosp Care Lvl 3 Diagnoses Malignant pleural effusion J91.0 Acute dyspnea R06.00 Pulmonary emboli I26.99 Metastatic lung cancer (metastasis from lung to other site) C34.90 Time Spent (min) 30 Comment 30 minutes [id number] including drainage of Pleurx catheter
--- NOTE | 2022-01-22 09:21 | Procedure Note ---
Procedure Note Date of Service January 22, 2022 Note Date: Procedure: Drain right pleurX catheter Indication: PleurX placed yesterday with evidence of large right pneumothorax Consent: Not needed. Patient awake and alert and agreed to drainage of pleural space Narrative: Patient was placed in a left lateral recumbent position. Dressing taken down and cap removed and hub was cleaned with an alcohol swab X 2. Catheter was connected to a vacutainer. Serosanguineous fluid and air was evacuated with minimal discomfort. Patient had no respiratory distress throughout the entire procedure. A total of 700 ml of fluid was successfully evacuated. Patient began to complain of cough and mild discomfort and the procedure was terminated. A post procedure CXR was obtained and showed significant improvement in the pneumothorax. Coding
[2022-01-22] MEDS: traMADol HCL 50 MG TABLET PO PRN (09:25)
--- NOTE | 2022-01-22 09:32 | XRay Report ---
SINGLE VIEW CHEST CLINICAL HISTORY: Pleural drain. Pneumothorax. FINDINGS: An AP, portable, upright chest radiograph is compared to study dated 01/21/2022 and correlat ed with chest CT dated 01/17/2022. A left subclavian central venous infusion port is in place. The car diomediastinal silhouette is unremarkable noting atherosclerotic calcification of the thoracic aorta. A right pleural drain is in place with the tip projecting over the right apex. There is a small to m oderate residual right apical pneumothorax. This has decreased in size from yesterday. There are laye ring pleural effusions with bibasilar consolidation. These appear similar to yesterday. Multifocal co nfluent airspace opacities are again seen throughout both lungs. No left-sided pneumothorax is identi fied. The skeletal structures are osteopenic. The bony thorax is grossly intact. IMPRESSION: 1. A right sided chest tube is in place. There is a small to moderate residual right apical pneumotho rax which is decreased in size from yesterday. 2. Layering pleural effusions with dependent consolidation. This is similar to previous. 3. Multifocal confluent airspace opacities are similar to yesterday and likely resents multifocal met astatic disease. Correlate clinically for evidence of a superimposed infectious/inflammatory pneumoni tis. ACT 112: Negative or not required by law. Electronically signed by: Dov Naylor M.D. 01/22/2022 9:29 AM
--- NOTE | 2022-01-22 19:12 | Hospitalist Progress Note ---
Date of Service January 22, 2022 Assessment & Plan (1) Large pleural effusion: (2) Non-small cell cancer of right lung: (3) Hypoxia: (4) Chronic hyponatremia: (5) CKD (chronic kidney disease), stage III: (6) CAD (coronary artery disease): Plan: This is a 66-year-old female who has significant past medical history of metastatic non-small cell lung carcinoma, CAD with history of PCI and 3 stents to LAD in 2019, COPD, HTN, HLD who presents to ED secondary to worsening shortness of breath x1 month. Hypoxia Large malignant right pleural effusion Metastatic non-small cell lung cancer of R lung Present on with worsening SOB Recent PET in november showed significant progression of tumor burden CTA chest showed large malignant right pleural effusion which occupies 80% of the right hemithorax with significant decrease in right lung aeration and associated mass effect with leftward mediastinal displacement. Pulm on board Status post thoracentesis done today with 1200 mL pleural fluid removed from the right hemithorax that was bloody by pulm S/P PleurX catheter placement 01/21/22 CXR showed Status post right Pleurx catheter placement with decreased right pleural effusion. However, there has been interval development of an approximately 25-30% right-sided pneumothorax. S/P 750 cc pleural fluid drained from the pleurX catheter Pleural cx no growth Resumed anticoagulant with PO eliquis Palliative care on board for goal of care- Plan is to transition to home hospice aide is aware Abnormal Chest CT CT showed possible small pulmonary emboli LLL CTA showed small filling defects within two subsegmental pulmonary arteries within the left lower lobe. These favor small pulmonary emboli although invasion by adjacent tumor could appear similar. Unclear whether these areas represent true pulmonary embolism or tumor emboli. 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 as well as secondary to Lasix use Na 133 today Continue monitor BMP Severe protein-calorie malnutrition BMI 18.1 Encourage to increase protein intake Anemia Hgb dropped to 8.4 Hgb stable CKD stage III Creatinine at baseline Monitor CAD with history of PCI and 3 stents in April 2019 HTN HLD On metoprolol, amlodipine, aspirin, Plavix and statin Continue to hold plavix DVT prophylaxis: SCD/teds Starting on Eliquis BID Dispo: PCU PCP: Parth Full code Admission and Anticipated Discharge Date Admission Date: January 17, 2022 Subjective Patient was seen and examined for follow-up on shortness of breath Lying in bed with no acute distress She had 750cc pleural fluid removed from the pleurX catheter Pt said that her breathing feels better after the catheter drained She wants to go home on hospice Denies any fever, palpitation, dizziness and fever Review of Systems Review of Systems: All systems reviewed & are unremarkable except as noted in Subjective Physical Exam Physical Exam: General- No acute distress Head- atraumatic Eyes- PERRL, EOMI, ENT- oropharynx clear Neck- supple, no JVD Lungs- Diminished breath sound Heart- regular rhythm; no murmur Abdomen- normal bowel sounds, soft, nontender Extremities- no calf tenderness Neuro- alert, oriented x 3; PERRL, EOMI; no facial palsy; no dysarthria Skin- warm & dry Results & Data Results & Data ([facility]) Vital Signs (Past 12 Hours) Vital Signs Temp Pulse Pulse Resp BP Pulse Ox 01/22/22 15:53 36.5 C 117 H 19 114/77 88 L 01/22/22 11:18 36.7 C 117 H 19 107/72 94 01/22/22 10:50 114 H 01/22/22 07:46 36.5 C 109 H 16 114/79 95
[2022-01-23] MEDS: APIXABAN 5 MG TABLET PO SCH ×2 (00:15→08:59)
[2022-01-23] MEDS ORDERED: CLOPIDOGREL BISULFATE 75 MG TAB PO SCH (09:00)
[2022-01-23] MEDS: CETIRIZINE HCL 10 MG TABLET PO SCH (09:00)
--- NOTE | 2022-01-23 13:40 | Discharge Summary ---
Date of Service January 23, 2022 Admission HPI Per Admitting Provider This is a 66-year-old female who has significant past medical history of metastatic non-small cell lung carcinoma, CAD with history of PCI and 3 stents to LAD in 2019, COPD, HTN, HLD who presents to ED secondary to worsening shortness of breath x1 month. Of significance patient was initially diagnosed with non-small cell lung cancer in December 2018. She follows with Dr. Carr. Recent PET/CT done on 12/16/2021 shows significant disease progression. She previously has been on a chemo holiday and plan is to start Navelbine in 1 week.She has a known right pleural effusion for which she follows pulmonology, Dr. Mckeon. She had a CT chest done on 12/24/2021 which revealed a loculated right pleural effusion with compressive atelectasis and extensive patchy bilateral airspace disease. At that time it was recommended patient undergo thoracentesis; however patient declined. In the interim she has been treated with Lasix 20 mg daily every other day, but patient does not feel this is improving. She complains of worsening shortness of breath at rest, a dry cough which worsens her shortness of breath, approximate 15 pound weight loss in the past 1-1/2 months and generalized weakness. She denies any fever, chills, sweats, lightheadedness, dizziness, chest pain, shortness of breath at rest, hemoptysis, emesis, abdominal pain, dysuria, increased urgency or frequency with urination, melena or hematochezia. She does complain of dizziness and lightheadedness and feelings of, "passing out," whenever she coughs. She does not use oxygen at home. When patient arrived to ED she was hypoxic at 86%. He required 2 L oxygen supplementation.Chest CT revealed large malignant right pleural effusion which occupies 80% of the right hemithorax with significant decrease in right lung aeration and associated mass-effect with leftward mediastinal displacement. Small left pleural effusion and small pericardial effusion. Multiple coalescent masses and innumerable pulmonary nodules within the lung suggestive of extensive metastatic disease. Mild right supraclavicular mediastinal lymphadenopathy noted. There were also 2 small filling defects within the 2 submental pulmonary arteries within the left lower lobe. Of question is if it is related to pulmonary emboli versus invasion of adjacent tumor. Admission Exam Per Admitting Provider Constitutional: Thin, cachectic, chronically ill looking female, vitals as above, NAD, answers questions appropriately, coughs with conversation Head: Normocephalic, Atraumatic Eyes: PERRL, conjunctivae normal, anicteric sclerae ENMT: external ear and nose normal, oropharynx normal Neck: trachea midline, no thyromegaly normal visual inspection Respiratory: normal respiratory effort, absent breath sounds R, otherwise CTA throughout L lung. Normal insp/exp effort, no accessory muscle use Cardiovascular: RRR, no murmur, no edema Vessels: no JVD or carotid bruit Chest: normal inspection of chest , LACW mediport noted Abdomen: normal bowel sounds, soft, nontender, no hepatosplenomegaly Musculoskeletal: no cyanosis or clubbing, AROM x 4 Skin: no rashes, warm and dry normal turgor Neurologic: PERRL, EOMI, accommodation nl, no face palsy, no dysarthria CN's II-XI intact bilaterally and moves all extremities Psychiatric: A+Ox3, euthymic affect : deferred Principal Diagnosis (1) Large pleural effusion: (2) Non-small cell cancer of right lung: (3) Hypoxia: (4) Chronic hyponatremia: (5) CKD (chronic kidney disease), stage III: (6) CAD (coronary artery disease): Discharge Exam General- No acute distress Head- atraumatic Eyes- PERRL, EOMI, ENT- oropharynx clear Neck- supple, no JVD Lungs- Diminished breath sound Heart- regular rhythm; no murmur Abdomen- normal bowel sounds, soft, nontender Extremities- no calf tenderness Neuro- alert, oriented x 3; PERRL, EOMI; no facial palsy; no dysarthria Skin- warm & dry Discharge Data Allergies Allergy/AdvReac Type Severity Reaction Status Date / Time barley Allergy Intermediate INDIGESTION/GI Verified 01/17/22 15:30 SYMPTOMS chocolate flavor Allergy Intermediate HEADACHES Verified 01/17/22 15:30 WITH LARGE QUANTITIES horse dander Allergy Intermediate ITCHING Verified 01/17/22 15:30 mold Allergy Intermediate ITCHING/DIFFICULT Verified 01/17/22 15:30 BREATHING Penicillins Allergy Intermediate Hives Verified 01/17/22 15:30 cheese AdvReac Intermediate CONSTIPATION/GI Verified 01/17/22 15:30 SYMPTOMS Consultations 01/17/22 17:14 ED Decision to Admit Stat 01/17/22 17:15 Consult Pulmonology Stat 01/17/22 17:17 Consult Pulmonology Routine 01/20/22 07:45 Consult Palliative Care Routine Ordered Studies 01/17/22 14:47 CT angio chest PE protocol Stat 01/18/22 08:41 US point of care ultrasound Urgent 01/19/22 10:23 US point of care ultrasound Urgent 01/21/22 08:18 US point of care ultrasound Routine SINGLE VIEW CHEST CLINICAL HISTORY: Pleural drain. Pneumothorax. FINDINGS: An AP, portable, upright chest radiograph is compared to study dated 01/21/2022 and correlated with chest CT dated 01/17/2022. A left subclavian central venous infusion port is in place. The cardiomediastinal silhouette is unremarkable noting atherosclerotic calcification of the thoracic aorta. A right pleural drain is in place with the tip projecting over the right apex. There is a small to moderate residual right apical pneumothorax. This has decreased in size from yesterday. There are layering pleural effusions with bibasilar consolidation. These appear similar to yesterday. Multifocal confluent airspace opacities are again seen throughout both lungs. No left-sided pneumothorax is identified. The skeletal structures are osteopenic. The bony thorax is grossly intact. IMPRESSION: 1. A right sided chest tube is in place. There is a small to moderate residual right apical pneumothorax which is decreased in size from yesterday. 2. Layering pleural effusions with dependent consolidation. This is similar to previous. 3. Multifocal confluent airspace opacities are similar to yesterday and likely resents multifocal metastatic disease. Correlate clinically for evidence of a superimposed infectious/inflammatory pneumonitis. ACT 112: Negative or not required by law. Electronically signed by: Dov Naylor M.D. 01/22/2022 9:29 AM Dictated:01/22/22925 Transcribed: 01/22/22925 XR chest 1V portable at 3:09 PM CLINICAL HISTORY: R pleurex placement. Evaluate for pneumothorax. Pleural effusion COMPARISON STUDY: 01/21/2022 at 6:54 AM TECHNIQUE: 1 view of the chest FINDINGS: Single frontal view of the chest demonstrates the cardiomediastinal silhouette to be within normal limits. Compared to the previous examination, a right-sided Pleurx catheter has been placed with decreased right pleural effusion. However, there has been interval development of an approximately 25-30% right-sided pneumothorax. Bilateral lung opacities are again seen. There is again minimal blunting of the left costophrenic angle. There is no evidence for vascular congestion. There is no acute osseous pathology. IMPRESSION: 1. Status post right Pleurx catheter placement with decreased right pleural effusion. 2. However, there has been interval development of an approximately 25-30% right-sided pneumothorax. Dr. Stone was contacted with these findings via tiger text. ACT 112: Negative or not required by law. Electronically signed by: Jasmeet Hathaway M.D. 01/21/2022 3:29 PM Dictated:01/21/22 1522 Transcribed: 01/21/221521 XR chest 1V portable CLINICAL HISTORY: Follow-up pleural effusion. COMPARISON STUDY: No previous studies for comparison. TECHNIQUE: 1 view of the chest FINDINGS: Single frontal view of the chest demonstrates the cardiomediastinal silhouette to be within normal limits. Compared to previous examination, there is increasing right pleural effusion present. Increasing opacity is also seen involving the right lung which is most likely related to pleural fluid within the fissure as well. There is no evidence for pneumothorax. The appearance of the left lung remains unchanged. Minimal blunting of left costophrenic angle is present. There is no evidence for vascular congestion. There is no acute osseous pathology. IMPRESSION: 1. Interval increase in right pleural effusion and right lung opacity. ACT 112: Negative or not required by law. Electronically signed by: Jasmeet Hathaway M.D. 01/21/2022 9:12 AM Dictated:01/21/2211 Transcribed: 01/21/22910 XR chest 1V portable CLINICAL HISTORY: follow up effusion. Cough COMPARISON STUDY: 01/19/2022 TECHNIQUE: 1 view of the chest FINDINGS: Single frontal view of the chest demonstrates the cardiomediastinal silhouette to be within normal limits. The patient is again status post right thoracentesis with no evidence for pneumothorax. Residual right pleural effusion is present along with fluid loculated along the right lateral chest wall. Decreased alveolar opacities seen involving the right midlung. There is no change in left lung opacities. There is no evidence for vascular congestion. There is no acute osseous pathology. IMPRESSION: 1. No significant interval change in residual right pleural effusion with no evidence for pneumothorax. 2. Decrease alveolar opacities involving the right lung. 3. No change in alveolar opacities of the left lung. ACT 112: Negative or not required by law. Electronically signed by: Jasmeet Hathaway M.D. 01/20/2022 8:58 AM Dictated:01/20/22 0856 Transcribed: 01/20/22 0856 XR chest 1V portable CLINICAL HISTORY: Post thoracentesis COMPARISON STUDY: Chest CT January 17, 2022. Chest radiograph January 19, 2022. FINDINGS: No pneumothorax is identified status post right thoracentesis. Right lung aeration has improved. Right pleural effusion has significantly decreased in size with decrease in mass effect. Multiple nodules and masses within the lungs are present. Left subclavian [id number] is in place. IMPRESSION: No pneumothorax following right thoracentesis. Significant decrease in size of the right pleural effusion and improvement in associated mass effect. ACT 112: Negative or not required by law. Electronically signed by: Dwain Rodriguez M.D. 01/19/2022 11:08 AM Dictated:01/19/22 1106 Transcribed: 01/19/22 1106 XR chest 1V portable CLINICAL HISTORY: low o2. Non-small cell lung cancer. COMPARISON STUDY: Chest CT January 17, 2022. FINDINGS: Left subclavian Rvibuc-c-Fpzi is in place. Near complete opacification of the right hemithorax has progressed since CT of January 17, 2022. This is due to a large right pleural effusion. Associated mass effect with leftward mediastinal shift. Multiple nodules and masses within the left lung are noted. There is no pneumothorax. IMPRESSION: 1. Near complete opacification of the right hemithorax which has progressed since prior chest CT. Minimal right lung aeration. This is due to a large right pleural effusion. 2. Extensive metastatic disease within the left lung. ACT 112: Negative or not required by law. Electronically signed by: Dwain Rodriguez M.D. 01/19/2022 9:11 AM Dictated:01/19/22 0910 Transcribed: 01/19/22909 CT ANGIOGRAPHY OF THE CHEST, PULMONARY EMBOLUS PROTOCOL CLINICAL HISTORY: Dyspnea. Non-small cell lung cancer. COMPARISON STUDY: PET/CT December 20, 2018. Chest radiograph May 27, 2019. Chest CT December 02, 2018. TECHNIQUE: Following IV administration of 95 mL of Optiray, helical axial images of the chest were obtained utilizing the pulmonary embolus protocol. Maximal intensity projections and sagittal and coronal reformats were viewed on an independent 3D workstation. IV contrast was administered without complication. Automated exposure control was utilized for the study. A dose lowering technique was utilized adhering to the principles of ALARA. CT DOSE: 234.17 mGy.cm FINDINGS: Left subclavian [id number]-[id number] is in place. Note is made of small filling defects within two subsegmental pulmonary arteries within the left lower lobe shown on axial image 91 of 278 and 95 of 278. No additional filling defects are identified. Right lower lobe pulmonary arteries are compressed by adjacent mass. There is no central pulmonary embolus. Size of the heart is normal. Extensive coronary artery calcification is present. There is a small pericardial effusion. Note is made of a large right pleural effusion which occupies 80% of the right hemithorax. Right lung aeration is markedly diminished. Multiple right pleural enhancing masses are present consistent with a malignant effusion. Small left pleural effusion is present. Multiple coalescent masses and innumerable pulmonary nodules within the lungs are noted. The largest is within the right lung, measuring approximately 5.6 cm. This represents extensive metastatic disease. There is no pneumothorax. Mildly enlarged right supraclavicular lymph node measures 1.5 x 1 cm. Mildly enlarged right paratracheal lymph node measures 1.4 x 0.9 cm. Adenopathy has decreased since exam of December 20, 2018. The size of the pulmonary masses has increased. No suspicious lesions within the bony fragments. Visualized portions of the upper abdomen are unremarkable. IMPRESSION: 1. Small filling defects within two subsegmental pulmonary arteries within the left lower lobe. These favor small pulmonary emboli although invasion by adjacent tumor could appear similar. 2. Large malignant right pleural effusion which occupies 80% of the right hemithorax with significant decrease in right lung aeration and associated mass effect with leftward mediastinal displacement. Small left pleural effusion. Small pericardial effusion. 3. Multiple coalescent masses and innumerable pulmonary nodules within the lungs suggestive of extensive metastatic disease. 4. Mild right supraclavicular mediastinal lymphadenopathy. ACT 112: Negative or not required by law. Electronically signed by: Dwain Rodriguez M.D. 01/17/2022 4:22 PM Dictated:01/17/22 1606 Transcribed: 01/17/22 1606 Hospital Course (1) Large pleural effusion: (2) Non-small cell cancer of right lung: (3) Hypoxia: (4) Chronic hyponatremia: (5) CKD (chronic kidney disease), stage III: (6) CAD (coronary artery disease): This is a 66-year-old female who has significant past medical history of metastatic non-small cell lung carcinoma, CAD with history of PCI and 3 stents to LAD in 2019, COPD, HTN, HLD who presents to ED secondary to worsening shortness of breath x1 month. Hypoxia Large malignant right pleural effusion Metastatic non-small cell lung cancer of R lung Present on with worsening SOB Recent PET in november showed significant progression of tumor burden CTA chest showed large malignant right pleural effusion which occupies 80% of the right hemithorax with significant decrease in right lung aeration and associated mass effect with leftward mediastinal displacement. Pulm on board Status post thoracentesis done today with 1200 mL pleural fluid removed from the right hemithorax that was bloody by pulm S/P PleurX catheter placement 01/21/22 CXR showed Status post right Pleurx catheter placement with decreased right pleural effusion. However, there has been interval development of an approximately 25-30% right-sided pneumothorax. S/P 750 cc pleural fluid drained from the pleurX catheter Pleural cx no growth Resumed anticoagulant with PO eliquis Palliative care on board for goal of care- Plan is to transition to home hospice volunteer is aware Abnormal Chest CT CT showed possible small pulmonary emboli LLL CTA showed small filling defects within two subsegmental pulmonary arteries within the left lower lobe. These favor small pulmonary emboli although invasion by adjacent tumor could appear similar. Unclear whether these areas represent true pulmonary embolism or tumor emboli. 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 as well as secondary to Lasix use Na 133 today Continue monitor BMP Severe protein-calorie malnutrition BMI 18.1 Encourage to increase protein intake Anemia Hgb dropped to 8.4 Hgb stable CKD stage III Creatinine at baseline Monitor CAD with history of PCI and 3 stents in April 2019 HTN HLD On metoprolol, amlodipine, aspirin, Plavix and statin Continue to hold plavix DVT prophylaxis: SCD/teds Starting on Eliquis BID Dispo: PCU PCP: Parth Full code Total Time Total Time Spent Total Time Spent (In Minutes): 35 minutes Discharge Plan Discharge Items Patient Disposition: Hospice - Home Reason For Visit: LARGE MALIGNANT PLEURAL EFFUSION, LUNG CANCER Discharge Diagnosis: (1) Large pleural effusion: (2) Non-small cell cancer of right lung: (3) Hypoxia: (4) Chronic hyponatremia: (5) CKD (chronic kidney disease), stage III: (6) CAD (coronary artery disease): Activity: Resume your previous activity Non-emergency contact: Primary Care Provider and Oncologist Call non-emergency contact if: you have any medication questions Follow-up/Referrals: Kae Alba MD [Primary Care Provider] - (Date & Time 01/27/2022 3:00 PM Provider Kae Alba MD [facility] ) Diet: Heart Healthy Diet Texture: Easy to Chew Addtl Attending Provider Instructions: Follow up with your primary care provider on 01/27/2022 @ 3:00 PM Kae Alba MD [facility] Continue 4 liter nasal canula oxygen supplement to keep oxygen saturation above 90% Continue PleurX catheter drainage at home on a daily or every other day basis. Continue anticoagulant for lifelong Continue monitor for abnormal bleeding while on anticoagulant Fall precaution Eliquis (blood thinner) was started last night. Continue Eliquis 10mg twice a day for 6 days, then transition to 5mg twice a day for lifelong Medication Instructions: Eliquis Your condition is typically treated with an anticoagulant. Anticoagulants will thin your blood to help prevent new clots. You should take her medication exactly as directed. Never skip a dose. Never take a double dose. If you miss a dose, take it as soon as you remember. Avoid NSAIDs (Motrin, Aleve, Naproxen, Aspirin, Ibuprofen, Advil, Meloxicam,..) due eve ncrease risks of bleeding Call your Primary Care doctor if you experience any of the following: Swelling or Pain in your leg Sudden, continuous pain deep in a muscle Pain that worsens when you are active or when you stand still for a long time Chest Pain Sudden Shortness of Breath Rapid or pounding heart beat Fainting Dizziness Cough with blood or bloody sputum Sweating more than normal Bruises Heavy or uncontrolled bleeding Blood in your urine, stool or vomit Black or tarry stools Pending Studies at Discharge: No Stand-Alone Forms: My [facility], Smoking Cessation Medications and DC Order Prescriptions: New Eliquis 5 mg tablet 5 mg PO UD Qty: 74 RF: 0 sennosides [Senokot] 8.6 mg Tablet 8.6 mg PO QAM PRN (Reason: constipation) Qty: 30 RF: 0 hydrocodone-homatropine [Hydromet] 5-1.5 mg/5 mL Syrup 5 ml PO Q6H PRN (Reason: cough/rib pain) Qty: 200 RF: 0 benzonatate 100 mg Capsule 100 mg PO QID PRN (Reason: cough) Qty: 30 RF: 0 Continued ondansetron HCl 8 mg tablet 8 mg PO Q8H PRN (Reason: Nausea) RF: 0 metoprolol succinate 100 mg tablet extended release 24 hr 100 mg PO DAILY RF: 0 clopidogrel 75 mg tablet 75 mg PO DAILY RF: 0 amlodipine 5 mg tablet 5 mg PO DAILY RF: 0 cetirizine [Zyrtec] 10 mg Tablet 10 mg PO DAILY RF: 0 folic acid 1 mg tablet 1 mg PO DAILY RF: 0 furosemide 20 mg tablet 20 mg PO DAILY RF: 0 Discontinued aspirin [Ecotrin Low Strength] 81 mg Tablet,Delayed Release (Dr/Ec) 81 mg PO QAM Qty: 30 RF: 1 Discharge Orders: Discharge Order (Routine); Ordered 01/23/22 Ordered By: Harrison Raymond Admission Data Admit Date/Time: 01/17/22 17:17 Attending Provider: Harrison Raymond Admit Provider: Claribel Tamez Primary Care Provider: Kae Alba Other Providers: Berny Marsh ; Claribel Tamez ; Peggy Romero ; [facility] Other Interventions: Discharge Summary Assessment (RN) Last Done: 01/23/22 13:35
--- NOTE | 2022-01-30 10:35 | Coding Query ---
CODING QUERY To promote full compliance with coding requirements relating to patient care, provider participation is requested in all cases of car wiper uncertainty. Please assist us with the question(s) below: Coding Question(s): Pneumothorax is documented in the record after the 01/21/22 thoracentesis procedure. Please specify below, in your clinical opinion, regarding Pneumothorax. ( ) Pneumothorax is likely Postoperative Pneumothorax Complication from the procedure ( ) Pneumothorax is likely other: Please Specify (xx ) Pneumothorax is Unspecified Pneumothorax that is Not a Complication from the procedure Physician's Response(s): Thank you Marybel Maloney Principal Diagnosis: "that condition established after study, to be chiefly responsible for occasioning the admission of the patient to the hospital for care." Co-Existing Principal Diagnosis: "when two or more diagnoses equally meet the criteria for principal diagnosis as determined by the circumstances of admission, diagnostic work up, and/or therapy provided, and the Alphabetic Index, Tabular List, or another coding guideline does not provide sequencing direction, any one of the diagnoses may be sequenced first." "When the physician has documented what appears to be a current diagnosis in the body of the record, but has not included the diagnosis in the final diagnostic statement, the physician should be asked whether the diagnosis should be added." (Source Coding [facility] 2 QTR90. p3-4) CLEMENTINE
== END 2022-01-23 14:15 | disposition hospice, home (50) | DRG 180 ==
LOC: ED 14:12 → 2S 17:17 → SUATTDRO 17:17 → 2S 19:33